=== PATIENT | female | born 1990 | race Caucasian/White ===

== ENCOUNTER → 2018-11-05 14:11 | Outpatient (CLI) | payer OTHER, SELFPAY ==
--- NOTE | 2018-11-05 14:15 | XR_ITS ---
PROCEDURE: XR ELBOW RT MIN 3V CLINICAL INDICATION: Rt elbow pain COMPARISON: No exams were available for comparison FINDINGS: No fracture or dislocation. No lytic or blastic change. There is normal mineralization. The joint spaces are well-preserved. No significant degenerative/arthritic changes. No erosive changes evident. Other findings:Along the dorsal aspect of the proximal olecranon on there is some increased density which could be related to patient's known soft tissue lesion. IMPRESSION: No acute bony or joint findings. Lobular soft tissue density along the posterior aspect of the elbow and may be related to soft tissue lesion. Dictated by: Jasiel Horner MD 11/05/2018 14:45 Electronically signed by Jasiel Horner MD in [place] 11/05/2018 14:45
== END ==
PROVIDERS: PCP Internal Medicine; Visit Provider Orthopaedic Surgery
DX: Z01.810 Encounter for preprocedural cardiovascular examination (principal); M25.521 Pain in right elbow
CPT/HCPCS: 73080

== ENCOUNTER 2019-08-08 17:49 | Emergency (ER) | payer OTHER, SELFPAY ==
[2019-08-08 18:15] VITALS: BP 155/102; PULSE 115; RESP 20; TEMP 37.3; O2SAT 98; BMI 52.3
--- NOTE | 2019-08-08 18:46 | HMH.EDUTC ---
[facility] [place] Clinical Impression: Mastitis of right breast unrelated to of Disposition: Home, Self-Care Condition on Discharge: Good Instructions: Mastitis, DI for Mastitis Additional Instructions: Apply warm wet compresses to the affected site three or four times per day for 15 minutes as tolerated. Take the antibiotics as directed. Follow up with your regular doctor. I put in a referral to surgery (Dr. Jones). If you have worsening symptoms or concerns, please follow up with him. GO TO THE ER FOR ANY WORSENING SYMPTOMS OR CONCERNS Prescriptions: Doxycycline Hyclate [Doxycycline 100mg Capsule] 100 mg PO Q12 10 Days #20 cap Transmission Status: Received by [id number] Referrals: Provider,MD Ritika [Primary Care Provider] - Luiz Jones MD [Staff Physician] - Forms: Work/School Release Time of Disposition: 18:55 Medical Decision Making - Medical Records Medical records reviewed: No: I reviewed the patient's medical records. - Herbert Inquiry Pt receiving controlled substance: No Vital Signs: 08/08/19 18:15 08/08/19 19:00 Temperature 99.2 F 99.2 F Temperature Source Oral Pulse Rate 115 H Pulse Rate [Left Brachial] 115 H Respiratory Rate 20 20 Blood Pressure 155/102 H Blood Pressure [Left Arm] 155/102 H Blood Pressure Mean [Left Arm] 119 Blood Pressure Source [Left Arm] Automatic Cuff Blood Pressure Position [Left Arm] Sitting 02 Sat by Pulse Oximetry 98 Oxygen Delivery Method Room Air [facility] [place] HPI - General Stated complaint: Right nipple itching, red stripe, knot to the side Time Seen by Provider: 08/08/19 18:46 Mode of Arrival: Ambulatory Source of Information: Patient Limitations: No Limitations Description of Symptoms (Recalled from Triage Doc. by RN): PATIENT C/O ITCHING, REDNESS, AND TENDERNESS TO HER RIGHT NIPPLE X 1 WEEK. SHE ALSO STATES THAT THERE IS A LUMP UNDER THE NIPPLE AND A RED LINE COMING FROM HER NIPPLE. DENIES FEVER, DISCHARGE HEENT Symptoms (Recalled from RN notes): No Resp Symptoms (Recalled from RN notes): No Skin Symptoms (Recalled from RN notes): Yes MS Symptoms (Recalled from RN notes): No Functional Status (Recalled from RN notes): WNL - History of Present Illness Provider Complaint: She reports that since yesterday she has a red painful area on her right breast that has also been very itchy. She denies any fever or chills. - Related Data Home Medications Medication Instructions Recorded Confirmed levonorgestrel-ethinyl estradiol 1 tab PO DAILY 07/23/18 11/26/18 0.1 mg-20 mcg tablet Previous Rx's Medication Instructions Recorded Doxycycline Hyclate [Doxycycline 100 mg PO Q12 10 Days #20 cap 08/08/19 100mg Capsule] Allergies Allergy/AdvReac Type Severity Reaction Status Date / Time ceftriaxone [From Rocephin] Allergy Verified 08/08/19 18:19 - Worker's Comp Is this a Worker's Comp case?: No [facility] History - Hepatitis A Screen Drug use history?: No High risk sexual behaviors?: No History of sexually transmitted infection?: No Currently employed?: No Childcare worker?: No Do you have indoor plumbing?: Yes Do you have electricity?: Yes Attestation statement:: This patient has been screened for Hepatitis A risk factors. I have reviewed the patient's past medical history: Yes Medical History: Denies:: Cancer, Diabetes Mellitus Type 1, Diabetes Mellitus Type 2, Internal Pacemaker, MRSA, Seizures Other Medical History: Denies: Blood Transfusion Reaction Other Surgeries: Yes: Other. No: Pacemaker Amputation: No Fractures: No Comment: [place] teeth removed, Cyst removal - Social History Smoking Status: Current every day smoker Tobacco Type: cigarettes # Packs/Day (cigarettes): 1 Alcohol Intake: never Substance Use Type: denies use Occupational Status: other Housing: house Household Members: family Family Hx:: Non-contributory, Cancer, Other Comment: Liver disea
[2019-08-08 19:00] VITALS: BP 155/102; PULSE 115; RESP 20; TEMP 37.3; O2SAT 98
== END 2019-08-08 19:04 | disposition home or self-care (01) ==
PROVIDERS: Emergency Provider Nurse Practitioner Family
DX: N61.0 Mastitis without abscess (principal)
CPT/HCPCS: 99201

== ENCOUNTER 2019-08-19 15:06 | Emergency (ER) | payer OTHER, SELFPAY ==
[2019-08-19 15:07] VITALS: BP 160/113; PULSE 94; RESP 20; TEMP 36.8; O2SAT 98; BMI 52.3
--- NOTE | 2019-08-19 15:30 | HMH.EDUTC ---
[facility] [place] Disposition Clinical Impression: Sinusitis Qualifiers: Sinusitis location: unspecified location Chronicity: unspecified Qualified Code(s): J32.9 - Chronic sinusitis, unspecified Disposition: Home, Self-Care Condition on Discharge: Good Instructions: Sinusitis, Sinus Headache, DI for Sinusitis, Preventing the Spread of Coronavirus Discharge Instructions Additional Instructions: *Monitor Temp, Over the counter Motrin or Tylenol as directed/as needed Tylenol every 4 hours and Motrin every 6 hours (as long as your family doctor has told you that you can take it) for fever or pain. and straight to ER if unable to lower temp less than 101.0 after medication given *Warm salt water gargles may help to soothe the throat *Throat Lozenges *Warm fluids like tea with honey may help to soothe the throat *Sleep elevated *Humidifier/Vaporizer No work or public outings until negative COVID19 test result back You was given handout on what to do Go home and self quarantine in a room away from everyone at home and do not be out in public until your COVID test is back and negative Return if needed Follow up with family doctor if needed Straight to ER if any life threatening symptoms You blood pressure was elevated in [facility] make sure to follow up with PCP for further evaluation Follow up IMMEDIATELY for new or worsening symptoms or no Noticeable improvement over the next 48-72 hours. 911 for difficulty breathing or swallowing Prescriptions: Azithromycin [Z-Pipe 250mg Tab] 250 mg PO DIRECTED #6 tab Transmission Status: Pending to [facility] Referrals: Provider,Referral, MD [Primary Care Provider] - As needed Forms: Work/School Release Time of Disposition: 16:17 Medical Decision Making - Herbert Inquiry Pt receiving controlled substance: No Herbert was queried for this patient: No Vital Signs: 08/19/19 15:07 Temperature 98.2 F Temperature Source Oral Pulse Rate [Radial] 94 H Respiratory Rate 20 Blood Pressure [Right Arm] 160/113 H Blood Pressure Mean [Right Arm] 128 Blood Pressure Source [Right Arm] Automatic Cuff Blood Pressure Position [Right Arm] Sitting 02 Sat by Pulse Oximetry 98 Oxygen Delivery Method Room Air - Lab Data Lab results reviewed: Yes: I reviewed the patient's lab results. Lab Results 08/19/19 15:35: [facility] Clinic Negative Orders (Tests/Meds): ED MEDICATIONS Discontinued Medications Generic Name Dose Route Start Last Admin Trade Name Bakari PRN Reason Stop Dose Admin Ketorolac Tromethamine 60 mg 08/19/19 15:47 08/19/19 15:47 Toradol 60mg/2ml Vial IM 08/19/19 15:48 60 mg ONCE ONE Administration ORDERS Category Date Time Status SARS-CoV-2, [facility] 08/19/19 15:[address] [facility] [place] HPI - General Stated complaint: need covid test to return to work Time Seen by Provider: 08/19/19 15:30 Mode of Arrival: Ambulatory Source of Information: Patient Limitations: No Limitations Description of Symptoms (Recalled from Triage Doc. by RN): Complaint of headache, fever, weakness, nausea, diarrhea. States her place of employment will not let her come back to work untill she is tested for COVID HEENT Symptoms (Recalled from RN notes): Yes Resp Symptoms (Recalled from RN notes): No Skin Symptoms (Recalled from RN notes): No MS Symptoms (Recalled from RN notes): No Functional Status (Recalled from RN notes): wnl - History of Present Illness Provider Complaint: Patient states that she hasnt felt well for the last couple of days States that she has been having sinus pain and pressure, headache, body aches and chills State that at work she had a low grade fever and diarrhea so they made her come and get checked for COVID19 - Related Data Home Medications Medication Instructions Recorded Confirmed levonorgestrel-ethinyl estradiol 1 tab PO DAILY 07/23/18 11/26/18 0.1 mg-20 mcg tablet Previous Rx's Medication Instructions Recorded Doxycycline Hycl
[2019-08-19 16:04] LABS: UTC Pregnancy Test, Urine Negative (Negative)
[2019-08-19 16:40] VITALS: BP 160/113; PULSE 94; RESP 20; TEMP 36.8; O2SAT 98
[2019-08-21 15:16] LABS: Covid-19 Nasal PCR Sendout Lex Not Detected
== END 2019-08-19 16:41 | disposition home or self-care (01) ==
PROVIDERS: Emergency Provider Nurse Practitioner
DX: J01.90 Acute sinusitis, unspecified (principal); F17.210 Nicotine dependence, cigarettes, uncomplicated; Z20.828 Contact with and (suspected) exposure to other viral communicable diseases
CPT/HCPCS: 81025; 96372; 99202; U0004

== ENCOUNTER 2019-10-28 17:30 | Emergency (ER) | payer OTHER, SELFPAY ==
[2019-10-28 18:06] VITALS: BP 138/82; PULSE 81; RESP 20; TEMP 36.9; O2SAT 96; BMI 54.1
--- NOTE | 2019-10-28 18:20 | HMH.EDUTC ---
[facility] [place] Disposition Clinical Impression: Sinusitis Qualifiers: Sinusitis location: unspecified location Chronicity: unspecified Qualified Code(s): J32.9 - Chronic sinusitis, unspecified Disposition: Home, Self-Care Condition on Discharge: Good Instructions: Sinusitis, Sinus Headache, DI for Sinusitis, DI for Cough -- Adult, Azithromycin Additional Instructions: *Monitor Temp, Over the counter Motrin or Tylenol as directed/as needed Tylenol every 4 hours and Motrin every 6 hours (as long as your family doctor has told you that you can take it) for fever or pain. and straight to ER if unable to lower temp less than 101.0 after medication given *Warm salt water gargles may help to soothe the throat *Throat Lozenges *Warm fluids like tea with honey may help to soothe the throat *Sleep elevated *Humidifier/Vaporizer *Flonase 2 sprays in each nostril daily but be aware that it may take 2-3 days before you notice improvement Your throat swab was sent for culture. Those results are typically sent to your primary care. Be sure to follow up in 2-3 days with your family doctor/primary care physician if no improvement so they can review those result and treat if necessary. If you don?t have a primary care doctor, I recommend you get one but in the mean time, you will have to return to a walk in clinic Follow up IMMEDIATELY for new or worsening symptoms or no Noticeable improvement over the next 48-72 hours. 911 for difficulty breathing or swallowing You was tested for COVID call back to the [facility] in the next 48-72 hours to see if your test results are back and what the result is You was given handout with instructions for Self isolation and Self Quarantine make sure to follow instructions carefully to help prevent the spread of COVID Prescriptions: Albuterol Sulfate [Proventil-HFA 90mcg/puff Inh] 1 - 2 puffs IH Q4HP PRN #1 inh PRN Reason: Shortness Of Breath [facility] Azithromycin [Z-Pipe 250mg Tab*] 250 mg PO UD DOSE PK #6 tab Transmission Status: [facility] Referrals: PCP,No [Primary Care Provider] - As needed Forms: Work/School Release Time of Disposition: 18:34 Medical Decision Making - Herbert Inquiry Pt receiving controlled substance: No Herbert was queried for this patient: No Vital Signs: 10/28/19 18:06 Temperature 98.5 F Temperature Source Oral Pulse Rate [Right Brachial] 81 Respiratory Rate 20 Blood Pressure [Right Arm] 138/82 Blood Pressure Mean [Right Arm] 100 Blood Pressure Source [Right Arm] Automatic Cuff Blood Pressure Position [Right Arm] Sitting 02 Sat by Pulse Oximetry 96 Oxygen Delivery Method Room Air - Lab Data Lab results reviewed: Yes: I reviewed the patient's lab results. Orders (Tests/Meds): ORDERS Category Date Time Status Covid-19 Nasal PCR Sendout [facility] 10/28/19 18:23 Ordered [facility] [place] HPI - General Stated complaint: sore throat,cough.SOB,weakness Time Seen by Provider: 10/28/19 18:20 Mode of Arrival: Ambulatory Source of Information: Patient Limitations: No Limitations Description of Symptoms (Recalled from Triage Doc. by RN): PATIENT C/O SOA, SORE THROAT, BODY ACHES, AND WEAKNESS SINCE LAST WEEK; STATES IT IS GETTING WORSE HEENT Symptoms (Recalled from RN notes): Yes Resp Symptoms (Recalled from RN notes): Yes Skin Symptoms (Recalled from RN notes): No MS Symptoms (Recalled from RN notes): No Functional Status (Recalled from RN notes): WNL - History of Present Illness Provider Complaint: Patient states that she hasnt felt well for about a week States that she has been having sinus pain and pressure, cough, sore throat, body aches, chills fever and over all not feeling well states that when she lays down she had drainage and makes her feel short of breath States that this evening was still feeling bad so she came in - Related Data Previous Rx's Medication Instructions Recorded Albuterol Sulfate [Pro
[2019-10-28 18:53] VITALS: BP 138/82; PULSE 81; RESP 20; TEMP 36.9; O2SAT 96
[2019-10-28 20:08] LABS: UTC Strep Screen (Rapid) Negative (Negative)
[2019-10-28 20:09] LABS: UTC Influenza A Antigen Negative (Negative); UTC Influenza B Antigen Negative (Negative)
[2019-10-31 08:57] LABS: Covid-19 Nasal PCR Sendout Lex NOT DETECTED
== END 2019-10-28 18:55 | disposition home or self-care (01) ==
PROVIDERS: Emergency Provider Nurse Practitioner
DX: J32.9 Chronic sinusitis, unspecified (principal); Z03.818 Encounter for observation for suspected exposure to other biological agents ruled out; F17.210 Nicotine dependence, cigarettes, uncomplicated
CPT/HCPCS: 87804; 87880; 99202; U0004

== ENCOUNTER 2019-12-26 09:10 | Emergency (ER) | payer OTHER, SELFPAY ==
--- NOTE | 2019-12-26 09:21 | HMH.EDGENADL ---
ED Disposition Clinical Impression: Abdominal pain Qualifiers: Abdominal location: unspecified location Qualified Code(s): R10.9 - Unspecified abdominal pain Leukocytosis Qualifiers: Leukocytosis type: unspecified Qualified Code(s): D72.829 - Elevated white blood cell count, unspecified Disposition: Home, Self-Care Condition on Discharge: Good Instructions: DI for Leukocytosis, DI for Abdominal Pain-Adult Additional Instructions: Follow-up with your primary care provider in 2 to 3 days for reevaluation. Referrals: PCP,No [Primary Care Provider] - - Critical Care Critical Care Time: No Attestation: On , the high probability of a clinically significant, sudden or life threatening deterioration of the following system(s) required my full and direct attention, intervention and personal management. The time I documented below is in addition to time spent performing reported procedures but includes the following listed in this critical care notation. Medical Decision Making - Medical Records Medical records reviewed: Yes: I reviewed the patient's medical records. - Herbert Inquiry Pt receiving controlled substance: No Vital Signs: 12/26/19 09:23 Temperature 99.4 F Temperature Source Oral Pulse Rate [Radial] 112 H Respiratory Rate 18 Blood Pressure [Right Arm] 139/92 H Blood Pressure Mean [Right Arm] 107 Blood Pressure Position [Right Arm] Sitting 02 Sat by Pulse Oximetry 98 Oxygen Delivery Method Room Air - Lab Data Lab results reviewed: Yes: I reviewed the patient's lab results. Lab Results 12/26/19 09:26: Urine Color Yellow, Urine Appearance Clear, Urine pH 6.0, Ur Specific Marshall >= 1.030, Urine Protein Negative, Urine Glucose (UA) Negative, Urine Ketones Negative, Urine Blood 2+, Urine Nitrate Negative, Urine Bilirubin Negative, Urine Urobilinogen 0.2, Ur Leukocyte Esterase Negative, Urine RBC 5-10, Urine WBC 3-5, Ur Squamous Epith Cells 3-5 12/26/19 09:26: Urine HCG, Qual Negative 12/26/19 10:00: WBC 13.8 H, RBC 5.03, Hgb 13.4, Hct 41.2, MCV 81.9, MCH 26.7 L, MCHC 32.6, RDW 16.3, Plt Count 383, MPV 7.6, Neut % (Auto) 75.7, Lymph % (Auto) 17.8, Holmes % (Auto) 4.7, Eos % (Auto) 1.4, Baso % (Auto) 0.4, Neut # (Auto) 10.5 H, Lymph # (Auto) 2.5, Holmes # (Auto) 0.7, Eos # (Auto) 0.2, Baso # (Auto) 0.1 12/26/19 10:00: Sodium 139, Potassium 4.6, Chloride 105, Carbon Dioxide 26, Anion Gap 12.6, BUN 18 H, Creatinine 0.80, Estimated Creat Clear 84, Estimated GFR 86, Est GFR ( Amer) 104, Glucose 91, Calcium 9.6 Result diagrams: 12/26/19 10:00 12/26/19 10:00 Orders (Tests/Meds): ED MEDICATIONS Discontinued Medications Generic Name Dose Route Start Last Admin Trade Name Freq PRN Reason Stop Dose Admin Ketorolac Tromethamine 30 mg 12/26/19 09:55 12/26/19 10:05 Ketorolac 30mg/Ml Vial IV 12/26/19 09:56 30 mg ONCE ONE Administration Medical Decision Narrative: Patient here with slightly elevated leukocytosis, but she states that this is normal for her. Urine does not appear infected. CT scan shows no signs of obstructive uropathy, appendicitis, bowel obstruction, diverticulitis. No acute metabolic derangement. Patient is morbidly obese, consideration could be for muscle strain. Encouraged ibuprofen/Tylenol, rest and follow-up with primary care provider in 2 to 3 days for reevaluation. General Adult HPI - General Stated complaint: both side pain Time Seen by Provider: 12/26/19 09:21 Mode of Arrival: Ambulatory Source of Information: Patient Limitations: No Limitations - History of Present Illness HPI narrative: This is a 29-year-old female with no significant past medical history who presents to the emergency department for evaluation of bilateral side pain just over her pelvic brim and increased urinary frequency that started yesterday. She had chills yesterday and a low-grade fever. She took Advil yesterday, no medications today. She has not had any vomiting. No mauro
[2019-12-26 09:23] VITALS: BP 139/92; PULSE 112; RESP 18; TEMP 37.4; O2SAT 98; BMI 54.8
[2019-12-26 09:31] LABS: Microscopic, Urine URINE MICROSCOPIC (MICROSCOPIC)
[2019-12-26 09:32] LABS: Appearance,Urine CLEAR (Clear); Bilirubin,Urine Negative (Negative); Blood, Urine 2+ (Negative); Color,Urine YELLOW (Yellow); Glucose,Urine (UA) Negative (Negative); Ketones,Urine Negative (Negative); Leukocyte Esterase,Urine Negative (Negative); Nitrate,Urine Negative (Negative); Protein,Urine Negative (Negative); Specific Gravity, Urine >= 1.030 (1.005-1.030); Urobilinogen,Urine 0.2 EU/dl (0.2)
[2019-12-26 09:35] LABS: Urine Pregnancy, HCG Qual. Negative (Negative)
--- NOTE | 2019-12-26 09:44 | CT_ITS ---
PROCEDURE: CT ABDOMEN PELVIS WO CON CLINICAL INDICATION: pyelo vs stone?, pain both sides Bilateral flank pain COMPARISON: No exams were available for comparison TECHNIQUE: Axial images obtained with sagittal and coronal reformats. All CT scans at the facility use one or more dose reduction, viz: automated exposure control, ma/kV adjustment per patient size (including targeted exams where dose is matched to indication, i.e. head), or iterative reconstruction technique. FINDINGS: LOWER THORAX: There are mild atelectatic changes in the right middle lobe medially ABDOMEN & PELVIS: The liver, spleen, adrenal glands, pancreas, and kidneys have an unremarkable appearance. No renal or ureteral calculi. No hydronephrosis. There are few small periaortic lymph nodes. Unremarkable appendix. No pelvic mass or abnormal fluid collection. There is a cyst tiny umbilical hernia containing fat. Degenerative disc disease is present in the lower thoracic spine. Scattered small nodes are present in the mesenteries which are nonspecific. There is edema within the subcutaneous soft tissues in the lumbar region IMPRESSION: 1. No acute abdominal or pelvic findings. 2. Scattered small mesenteric lymph nodes. These are nonspecific but could be seen with mesenteric adenitis. Dictated by: Jasiel Horner MD 12/26/2019 10:20 Jasiel Horner MD in [place] 12/26/2019 10:20
[2019-12-26 10:25] LABS: Basophils # 0.1 K/mm3 (0-0.2); Basophils % 0.4 % (0.1-2.0); Eosinophils # 0.2 K/mm3 (0.0-0.4); Eosinophils % 1.4 % (0.1-12.0); Hematocrit 41.2 % (37.0-47.0); Hemoglobin 13.4 g/dL (12.2-16.2); Lymphocytes # 2.5 K/mm3 (0.7-4.5); Lymphocytes % 17.8 % (10-50); Mean Corpuscular HGB Conc 32.6 g/dL (31.8-35.4); Mean Corpuscular Hemoglobin 26.7 pg (27.0-31.2); Mean Corpuscular Volume 81.9 fl (81-99); Mean Platelet Volume 7.6 fl (7.4-10.4); Monocytes # 0.7 K/mm3 (0.1-1.0); Monocytes % 4.7 % (1.7-9.3); Neutrophils # 10.5 K/mm3 (1.8-7.8); Neutrophils % 75.7 % (37.0-80.0); Platelet Count 383 K/mm3 (142-424); Red Blood Count 5.03 M/mm3 (4.20-5.40); Red Cell Distribution Width 16.3 % (11.5-17.5); White Blood Count 13.8 K/mm3 (4.8-10.8)
[2019-12-26 10:31] LABS: Chloride 105 mmol/L (98-107); Potassium 4.6 mmoL/L (3.5-5.1); Sodium 139 mmol/L (136-145)
[2019-12-26 10:34] LABS: Anion Gap 12.6 mEq/L (5-15); Blood Urea Nitrogen 18 mg/dl (7-17); Carbon Dioxide 26 mmol/L (22.0-30.0); Creatinine Clearance Estimated 84 mL/min (50-200); Estimated Glomerular Filt Rate 86 ml/min (>60); GFR (African American) 104 ML/MIN (>60)
[2019-12-26 10:35] LABS: Calcium 9.6 mg/dl (8.4-10.2); Glucose 91 mg/dl (74-100)
[2019-12-26 11:07] VITALS: BP 130/72; PULSE 100; RESP 16; TEMP 37.2; O2SAT 98
== END 2019-12-26 11:09 | disposition home or self-care (01) ==
PROVIDERS: Emergency Provider Emergency Medicine
DX: R10.30 Lower abdominal pain, unspecified (principal); D72.829 Elevated white blood cell count, unspecified; F17.210 Nicotine dependence, cigarettes, uncomplicated
CPT/HCPCS: 74176; 80048; 81001; 81025; 85025; 96374; 99283

== ENCOUNTER → 2020-01-30 15:40 | Outpatient (CLI) | payer OTHER, SELFPAY ==
[2020-02-01 17:50] LABS: Covid-19 Nasal PCR Sendout Lex Not Detected
== END ==
PROVIDERS: Visit Provider Nurse Practitioner Family
DX: Z03.818 Encounter for observation for suspected exposure to other biological agents ruled out (principal)
CPT/HCPCS: U0004

== ENCOUNTER 2020-02-11 11:37 | Emergency (ER) | payer OTHER, SELFPAY ==
[2020-02-11 11:47] VITALS: BP 143/114; PULSE 150; RESP 22; TEMP 39; O2SAT 98; BMI 53.9
--- NOTE | 2020-02-11 11:49 | PC.NURSE ---
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
[2020-02-11 11:57] VITALS: BP 143/114; PULSE 150; RESP 22; TEMP 39; O2SAT 98; BMI 54.3
--- NOTE | 2020-02-11 12:10 | HMH.EDUTC ---
[facility] [place] Clinical Impression: Viral syndrome, Bronchitis Disposition: Home, Self-Care Condition on Discharge: Good Instructions: Preventing the Spread of Coronavirus Discharge Instructions Additional Instructions: Drink plenty of fluids. Take tylenol for pain or fever. Return if you begin to have difficulty breathing. Follow up with your regular doctor. GO TO THE ER FOR ANY WORSENING SYMPTOMS Prescriptions: Ondansetron [Zofran 4mg ODT] 4 mg PO Q8HP PRN #12 tab.rapdis PRN Reason: Nausea [facility] Benzonatate [Tessalon Perle 100mg Cap] 100 mg PO TIDP PRN #30 cap PRN Reason: Cough Transmission Status: Received by [facility] Azithromycin [Z-Pipe 250mg Tab*] 250 mg PO UD DOSE PK #6 tab Transmission Status: [facility] Referrals: PCP,No [Primary Care Provider] - Forms: Work/School Release Time of Disposition: 13:18 Medical Decision Making - Medical Records Medical records reviewed: No: I reviewed the patient's medical records. - Herbert Inquiry Pt receiving controlled substance: No Vital Signs: 02/11/20 11:47 02/11/20 11:57 02/11/20 13:24 Temperature 102.2 F H 102.2 F H 98.7 F Temperature Source Oral Oral Oral Pulse Rate 120 H Pulse Rate [Left Radial] 150 H 150 H Respiratory Rate 22 22 20 Blood Pressure 140/90 Blood Pressure [Left Arm] 143/114 H 143/114 H Blood Pressure Mean [Left Arm] 123 123 Blood Pressure Source Automatic Cuff Blood Pressure Source [Left Arm] Automatic Cuff Automatic Cuff Blood Pressure Position Sitting Blood Pressure Position [Left Arm] Sitting Sitting 02 Sat by Pulse Oximetry 98 98 Oxygen Delivery Method Room Air Room Air Room Air - Lab Data Lab results reviewed: Yes: I reviewed the patient's lab results. Lab Results 02/11/20 12:41: Influenza Type A Ag Negative, Influenza Type B Ag Negative 02/11/20 12:41: Strep Scn Rapid Clinic Negative Orders (Tests/Meds): ED MEDICATIONS Discontinued Medications Generic Name Dose Route Start Last Admin Trade Name Freq PRN Reason Stop Dose Admin Acetaminophen 650 mg 02/11/20 12:01 02/11/20 12:03 Acetaminophen 325mg Tab PO 02/11/20 12:02 650 mg ONCE ONE Administration Ibuprofen 800 mg 02/11/20 12:01 02/11/20 12:04 Ibuprofen 400 Mg Tablet PO 02/11/20 12:02 800 mg ONCE ONE Administration ORDERS Category Date Time Status Covid-19 Nasal PCR Sendout [facility] 02/11/20 11:50 Received Strep Screen Confirmation Stat Micro 02/11/20 12:41 Received [facility] [place] HPI - General Stated complaint: sore throat,SOA.headache Time Seen by Provider: 02/11/20 12:14 Mode of Arrival: Ambulatory Source of Information: Patient Limitations: No Limitations Description of Symptoms (Recalled from Triage Doc. by RN): Pt c/o body aches, chills, sore throat and fever. Pt reports she feels like she can't catch her breath because of the chills . NO distress noted. HEENT Symptoms (Recalled from RN notes): Yes Resp Symptoms (Recalled from RN notes): Yes Skin Symptoms (Recalled from RN notes): No MS Symptoms (Recalled from RN notes): Yes Functional Status (Recalled from RN notes): wnl - History of Present Illness Provider Complaint: She reports that she started having a sore throat last night. She woke up with a cough and chest tightness this morning. Her fever was 103.0 before she came here. - Related Data Previous Rx's Medication Instructions Recorded Azithromycin [Z-Pipe 250mg Tab*] 250 mg PO UD DOSE PK #6 tab 02/11/20 Benzonatate [Tessalon Perle 100mg 100 mg PO TIDP PRN #30 cap 02/11/20 Cap] Ondansetron [Zofran 4mg ODT] 4 mg PO Q8HP PRN #12 tab.rapdis 02/11/20 Allergies Allergy/AdvReac Type Severity Reaction Status Date / Time ceftriaxone [From Rocephin] Allergy Verified 08/08/19 18:19 - Worker's Comp Is this a Worker's Comp case?: No [facility] History - Hepatitis A Screen D
--- NOTE | 2020-02-11 12:14 | XR_ITS ---
PROCEDURE: XR CHEST PORTABLE CLINICAL HISTORY: shortness of breath COMPARISON: CR CXR2V XR chest 2V from 07/06/2018 FINDINGS: The cardiomediastinal silhouette and pulmonary vascularity are within normal limits. The lungs are clear without infiltrates, suspicious nodules, or pleural effusions. No acute bony abnormalities. IMPRESSION: No acute findings. Dictated by: Jasiel Horner MD 02/11/2020 12:44 Jasiel Horner MD in [place] 02/11/2020 12:44
[2020-02-11 12:42] LABS: UTC Influenza A Antigen Negative (Negative); UTC Influenza B Antigen Negative (Negative); UTC Strep Screen (Rapid) Negative (Negative)
[2020-02-11 13:24] VITALS: BP 140/90; PULSE 120; RESP 20; TEMP 37.1; O2SAT 98
[2020-02-13 06:25] LABS: Covid-19 Nasal PCR Sendout Lex NOT DETECTED
== END 2020-02-11 13:25 | disposition home or self-care (01) ==
PROVIDERS: Emergency Provider Nurse Practitioner Family
DX: Z20.828 Contact with and (suspected) exposure to other viral communicable diseases (principal); B34.9 Viral infection, unspecified; J20.9 Acute bronchitis, unspecified
CPT/HCPCS: 71045; 87804; 87880; 99202; U0004

== ENCOUNTER 2020-02-12 14:14 | Emergency (ER) | payer OTHER, SELFPAY ==
[2020-02-12 14:20] VITALS: BP 150/97; PULSE 121; RESP 20; TEMP 37; O2SAT 95; BMI 53.9
[2020-02-12 14:38] LABS: UTC Strep Screen (Rapid) Positive (Negative)
--- NOTE | 2020-02-12 14:41 | HMH.EDUTC ---
[facility] [place] Clinical Impression: Strep throat Disposition: Home, Self-Care Condition on Discharge: Good Instructions: Strep Throat, DI for Strep Throat Additional Instructions: Continue taking Azithromycin as prescribed *Monitor Temp, Over the counter Motrin or Tylenol as directed/as needed Tylenol every 4 hours and Motrin every 6 hours (as long as your family doctor has told you that you can take it) for fever or pain. and straight to ER if unable to lower temp less than 101.0 after medication given *Warm salt water gargles may help to soothe the throat *Throat Lozenges *Warm fluids like tea with honey may help to soothe the throat *Sleep elevated *Humidifier/Vaporizer Make sure to call back to the [facility] tomorrow to see if your COVID test results are back and the result Make sure that you are drinking plenty of fluids to keep yourself hydrated Follow up IMMEDIATELY for new or worsening symptoms or no Noticeable improvement over the next 48-72 hours. 911 for difficulty breathing or swallowing Referrals: PCP,No [Primary Care Provider] - As needed Forms: Work/School Release Time of Disposition: 15:33 Medical Decision Making - Herbert Inquiry Pt receiving controlled substance: No Herbert was queried for this patient: No Vital Signs: 02/12/20 14:20 02/12/20 15:05 Temperature 98.6 F Temperature Source Oral Pulse Rate [Right Brachial] 121 H 100 H Respiratory Rate 20 Blood Pressure [Right Arm] 150/97 H Blood Pressure Mean [Right Arm] 114 Blood Pressure Source [Right Arm] Automatic Cuff Blood Pressure Position [Right Arm] Sitting 02 Sat by Pulse Oximetry 95 Oxygen Delivery Method Room Air - Lab Data Lab Results 02/12/20 14:25: Strep [facility] Positive A 02/12/20 14:41: Tst Clinic Negative Orders (Tests/Meds): ED MEDICATIONS Discontinued Medications Generic Name Dose Route Start Last Admin Trade Name Freq PRN Reason Stop Dose Admin Methylprednisolone Sodium Succinate 125 mg 02/12/20 15:04 02/12/20 15:10 Methylprednisolone Sod Succ 125mg Vial IM 02/12/20 15:05 125 mg ONCE ONE Administration [facility] [place] - General Stated complaint: Sore throat, ear pain Time Seen by Provider: 02/12/20 14:41 Mode of Arrival: Ambulatory Source of Information: Patient Limitations: No Limitations Description of Symptoms (Recalled from Triage Doc. by RN): PATIENT C/O SORE THROAT, FEVER, AND EAR PAIN X 2 DAYS. SHE WAS SEEN IN [facility] YESTERDAY AND GIVEN A Z-PACK, BUT STATES FEELS A LOT WORSE TODAY HEENT Symptoms (Recalled from RN notes): Yes Resp Symptoms (Recalled from RN notes): No Skin Symptoms (Recalled from RN notes): No MS Symptoms (Recalled from RN notes): No Functional Status (Recalled from RN notes): WNL - History of Present Illness Provider Complaint: Patient states that she has been having sore throat, bilateral ear pain and fever for several days States that she was seen in [facility] yesterday and started on Zpack but today her throat feels more swollen and her ears are hurting so she came in to get checked again to see if there is anything else she can take states that she was tested for COVID yesterday also but not heard her results yet - Related Data Previous Rx's Medication Instructions Recorded Azithromycin [Z-Pipe 250mg Tab*] 250 mg PO UD DOSE PK #6 tab 02/11/20 Benzonatate [Tessalon Perle 100mg 100 mg PO TIDP PRN #30 cap 02/11/20 Cap] Ondansetron [Zofran 4mg ODT] 4 mg PO Q8HP PRN #12 tab.rapdis 02/11/20 Allergies Allergy/AdvReac Type Severity Reaction Status Date / Time ceftriaxone [From Rocephin] Allergy Verified 08/08/19 18:19 - Worker's Comp Is this a Worker's Comp case?: No [facility] History - Hepatitis A Screen Drug use history?: No High risk sexual behaviors?: No History of sexually transmitted infection?: No Currently employed?: No Childcare worker?: No Do you have indoor plumbing?: Yes Do you have electricity?: Yes Attestation s
[2020-02-12 14:56] LABS: UTC Pregnancy Test, Urine Negative (Negative)
[2020-02-12 15:05] VITALS: PULSE 100
[2020-02-12 15:41] VITALS: BP 150/97; PULSE 100; RESP 20; TEMP 37; O2SAT 95
== END 2020-02-12 15:42 | disposition home or self-care (01) ==
PROVIDERS: Emergency Provider Nurse Practitioner
DX: J02.0 Streptococcal pharyngitis (principal); F17.210 Nicotine dependence, cigarettes, uncomplicated
CPT/HCPCS: 81025; 87880; 96372; 99202

== ENCOUNTER 2020-10-13 14:28 | Emergency (ER) | payer SELFPAY ==
[2020-10-13 15:26] VITALS: BP 146/96; PULSE 112; RESP 21; TEMP 37.1; O2SAT 99; BMI 56.3
--- NOTE | 2020-10-13 15:54 | HMH.EDUTC ---
[facility] [place]ression: Sinusitis Qualifiers: Sinusitis location: unspecified location Chronicity: unspecified Qualified Code(s): J32.9 - Chronic sinusitis, unspecified Disposition: Home, Self-Care Condition on Discharge: Good Instructions: Sinusitis, DI for Sinusitis, DI for COVID-19 (Suspected or Confirmed ), Coronavirus Disease 2019, Preventing the Spread of Coronavirus Discharge Instructions Additional Instructions: *Monitor Temp, Over the counter Motrin or Tylenol as directed/as needed Tylenol every 4 hours and Motrin every 6 hours (as long as your family doctor has told you that you can take it) for fever or pain. and straight to ER if unable to lower temp less than 101.0 after medication given *Warm salt water gargles may help to soothe the throat *Throat Lozenges *Warm fluids like tea with honey may help to soothe the throat *Sleep elevated *Humidifier/Vaporizer *Take your Medication as prescribed Follow up IMMEDIATELY for new or worsening symptoms or no Noticeable improvement over the next 48-72 hours. 911 for difficulty breathing or swallowing You were tested for today for COVID19 your test result should be back in the next 24-48 hours, you may call to the [facility] to see if your test results are back in the next 48 hours [phone] [facility] hours are 9am-9pm You was given a handout with instructions for Self Quarantine and Self isolation for while you wait on test results and what to do if they are positive If you are positive the Health Dept will be contacting you also Make sure to take your Vitamins Vit. C Vit D and Zinc if you can take them Prescriptions: guaiFENesin [Mucinex 600mg tablet] 1 - 2 tab PO Q12HP PRN #20 tab.er.12h PRN Reason: Congestion Transmission Status: Received by [facility] Dicyclomine HCl [Bentyl 10mg capsule] 10 mg PO TID PRN #15 cap PRN Reason: Cramping Transmission Status: Received by [facility] Azithromycin [Z-Pipe 250mg Tab] 250 mg PO DIRECTED #6 tab Transmission Status: Received by [facility] Referrals: Provider,Referral, MD [Primary Care Provider] - As needed Time of Disposition: 16:05 Medical Decision Making - Herbert Inquiry Pt receiving controlled substance: No Herbert was queried for this patient: No Vital Signs: 10/13/20 15:26 10/13/20 16:08 Temperature 98.7 F 98.7 F Temperature Source Oral Pulse Rate 112 H Pulse Rate [Right Radial] 112 H Respiratory Rate Blood Pressure 146/96 H Blood Pressure [Right Arm] 146/96 H Blood Pressure Mean [Right Arm] 112 Blood Pressure Position [Right Arm] Sitting 02 Sat by Pulse Oximetry 99 Oxygen Delivery Method Room Air [facility] [place] General Stated complaint: s throat, weakness, cough, vom, sob, diarr, abdom Time Seen by Provider: 10/13/20 15:45 Mode of Arrival: Ambulatory Source of Information: Patient Limitations: No Limitations Description of Symptoms (Recalled from Triage Doc. by RN): PT REPORTS SHE IS WANTING COVID SYMPTOMS RELIEF. PT REPORTS SHE TESTED POSITIVE FOR COVID ON 10/08/20. PT REPORT COUGH, WEAKNESS, V/D, SOA AND SORE THROAT HEENT Symptoms (Recalled from RN notes): Yes (PT REPORTS SORE THROAT) Resp Symptoms (Recalled from RN notes): Yes (PT REPORTS SOA) Skin Symptoms (Recalled from RN notes): No MS Symptoms (Recalled from RN notes): No Functional Status (Recalled from RN notes): PT REPORTS WEAKESS - History of Present Illness Provider Complaint: Patient state that she was dx with COVID several days ago State that she has been having sinus pain and pressure State that her drainage from her nose has went from clear to yellowish green and she was worried that she may have a sinus infection too. State that she has been having diarrhea and cramping along with body aches State that she has been taking mucinex that she was prescribed before for congestion and that has been helping keep her chest from getting congested but she ran out and wanted to see if she
[2020-10-13 16:08] VITALS: BP 146/96; PULSE 112; RESP 21; TEMP 37.1; O2SAT 99
== END 2020-10-13 16:12 | disposition home or self-care (01) ==
PROVIDERS: Emergency Provider Nurse Practitioner
DX: U07.1 COVID-19 (principal); J32.9 Chronic sinusitis, unspecified; F17.210 Nicotine dependence, cigarettes, uncomplicated
CPT/HCPCS: 99202; G0463

== ENCOUNTER 2021-08-26 00:47 | Emergency (ER) | payer OTHER, SELFPAY ==
[2021-08-26 00:49] VITALS: BP 167/105; PULSE 102; RESP 16; TEMP 36.8; O2SAT 99; BMI 55.0
[2021-08-26 01:18] VITALS: BP 159/97; PULSE 103; O2SAT 97
--- NOTE | 2021-08-26 01:20 | CT_ITS ---
PROCEDURE INFORMATION: Exam: CT Head Without Contrast Exam date and time: 08/26/2021 1:39 AM Age: 30 years old Clinical indication: Pain; Headache; Migraine; Aura effect not specified; Additional info: New onset migraine, possible mastoiditis, right side TECHNIQUE: Imaging protocol: Computed tomography of the head without contrast. Radiation optimization: All CT scans at this facility use at least one of these dose optimization techniques: automated exposure control; mA and/or kV adjustment per patient size (includes targeted exams where dose is matched to clinical indication); or iterative reconstruction. COMPARISON: No relevant prior studies available. FINDINGS: Brain: Normal. No hemorrhage. Unremarkable white matter. No mass effect. Cerebral ventricles: No ventriculomegaly. Pituitary gland and sella: Expanded empty sella noted. Paranasal sinuses: Visualized sinuses are unremarkable. No fluid levels. Mastoid air cells: Clear mastoid air cells and middle ear cavities bilaterally. Bones/joints: Unremarkable. No acute fracture. Soft tissues: Unremarkable. IMPRESSION: No evidence of acute intracranial hemorrhage, mass effect, or edema. Normal appearing mastoids and middle ear cavities bilaterally.
[2021-08-26 01:23] LABS: Basophils # 0.1 K/mm3 (0-0.2); Basophils % 0.5 % (0.1-2.0); Eosinophils # 0.2 K/mm3 (0.0-0.4); Eosinophils % 1.7 % (0.1-12.0); Hematocrit 42.8 % (37.0-47.0); Hemoglobin 14.4 g/dL (12.2-16.2); Lymphocytes # 4.3 K/mm3 (0.7-4.5); Lymphocytes % 29.6 % (10-50); Mean Corpuscular HGB Conc 33.6 g/dL (31.8-35.4); Mean Corpuscular Hemoglobin 28.5 pg (27.0-31.2); Mean Corpuscular Volume 84.8 fl (81-99); Mean Platelet Volume 7.8 fl (7.4-10.4); Monocytes # 0.4 K/mm3 (0.1-1.0); Monocytes % 2.9 % (1.7-9.3); Neutrophils # 9.4 K/mm3 (1.8-7.8); Neutrophils % 65.5 % (37.0-80.0); Platelet Count 361 K/mm3 (142-424); Red Blood Count 5.04 M/mm3 (4.20-5.40); Red Cell Distribution Width 14.1 % (11.5-17.5); White Blood Count 14.4 K/mm3 (4.8-10.8)
[2021-08-26 01:31] VITALS: BP 145/92; PULSE 98; O2SAT 98
[2021-08-26 01:38] LABS: HCG Qualitative, Serum Negative (Negative)
--- NOTE | 2021-08-26 01:42 | PC.NURSE ---
Pt gone to RAD
--- NOTE | 2021-08-26 01:47 | PC.NURSE ---
pt back from ct scan
[2021-08-26 02:31] VITALS: BP 136/85; PULSE 85; O2SAT 99
[2021-08-26 02:31] LABS: Coronavirus 19, PCR Not Detected (NotDetected); Influenza A, PCR Not Detected (NotDetected); Influenza B, PCR Not Detected (NotDetected)
[2021-08-26 02:42] LABS: Alanine Aminotransferase 30 U/L (12-78); Albumin Level 3.7 g/dl (3.5-5.0); Albumin/Globulin Ratio 1.4 (1.1-1.8); Alkaline Phosphatase 89 U/L (38-126); Anion Gap 8.3 mEq/L (5-15); Aspartate Amino Transferase 29 U/L (14-36); Blood Urea Nitrogen 15 mg/dl (7-17); Calcium 8.5 mg/dl (8.4-10.2); Carbon Dioxide 27 mmol/L (22.0-30.0); Chloride 107 mmol/L (98-107); Creatinine Clearance Estimated 95 mL/min (50-200); Estimated Glomerular Filt Rate 100 ml/min (>60); GFR (African American) 121 ML/MIN (>60); Globulin 2.7 g/dL (1.3-3.2); Glucose 90 mg/dl (74-100); Potassium 3.3 mmoL/L (3.5-5.1); Sodium 139 mmol/L (136-145); Total Protein,Serum 6.4 g/dl (6.3-8.2)
[2021-08-26 02:43] LABS: Lactic Acid 0.8 mmol/L (0.7-2.1)
[2021-08-26 02:44] LABS: Bilirubin,Total < 0.1 mg/dl (0.2-1.3)
[2021-08-26 02:48] LABS: C-Reactive Protein 13.2 mg/L (0-4)
[2021-08-26 02:48] LABS: Erythrocyte Sedimentation Rate 24 mm/hr (0-20)
--- NOTE | 2021-08-26 02:54 | HMH.EDHA ---
ED Disposition Clinical Impression: Mastoiditis Qualifiers: Laterality: right Qualified Code(s): H70.91 - Unspecified mastoiditis, right ear Disposition: Home, Self-Care Condition on Discharge: Good Instructions: DI for Mastoiditis-Adult Additional Instructions: use meds and see pcp for follow up at this time Prescriptions: clindamycin HCL [Clindamycin HCl] 300 mg PO TID #30 cap Transmission Status: Pending to [facility] Meloxicam 15 mg PO DAILY #10 tab Transmission Status: Pending to [facility] Referrals: Mega Reynolds MD [Primary Care Provider] - - Critical Care Critical Care Time: No Attestation: On 08/26/21, the high probability of a clinically significant, sudden or life threatening deterioration of the following system(s) required my full and direct attention, intervention and personal management. The time I documented below is in addition to time spent performing reported procedures but includes the following listed in this critical care notation. Medical Decision Making - Medical Records Medical records reviewed: Yes: I reviewed the patient's medical records. - Herbert Inquiry Pt receiving controlled substance: No Vital Signs: 08/26/21 00:49 08/26/21 01:18 08/26/21 01:31 Temperature 98.3 F Temperature Source Oral Pulse Rate 103 H 98 H Pulse Rate [Left Radial] 102 H Respiratory Rate 16 Blood Pressure 159/97 H 145/92 H Blood Pressure [Right Arm] 167/105 H Blood Pressure Mean 118 113 Blood Pressure Mean [Right Arm] 125 Blood Pressure Source [Right Arm] Automatic Cuff Blood Pressure Position [Right Arm] Sitting 02 Sat by Pulse Oximetry 99 97 98 Oxygen Delivery Method Room Air Room Air Room Air 08/26/21 02:31 Temperature Temperature Source Pulse Rate 85 Pulse Rate [Left Radial] Respiratory Rate Blood Pressure 136/85 Blood Pressure [Right Arm] Blood Pressure Mean Blood Pressure Mean [Right Arm] Blood Pressure Source [Right Arm] Blood Pressure Position [Right Arm] 02 Sat by Pulse Oximetry 99 Oxygen Delivery Method Room Air - Lab Data Lab results reviewed: Yes: I reviewed the patient's lab results. Lab Results 08/26/21 01:00: WBC 14.4 H, RBC 5.04, Hgb 14.4, Hct 42.8, MCV 84.8, MCH 28.5, MCHC 33.6, RDW 14.1, Plt Count 361, MPV 7.8, Neut % (Auto) 65.5, Lymph % (Auto) 29.6, Anson % (Auto) 2.9, Eos % (Auto) 1.7, Baso % (Auto) 0.5, Neut # (Auto) 9.4 H, Lymph # (Auto) 4.3, Anson # (Auto) 0.4, Eos # (Auto) 0.2, Baso # (Auto) 0.1, ESR 24 H 08/26/21 01:00: Serum HCG, Qual Negative 08/26/21 01:35: Sodium 139, Potassium 3.3 L, Chloride 107, Carbon Dioxide 27, Anion Gap 8.3, BUN 15, Creatinine 0.70, Estimated Creat Clear 95, Estimated GFR 100, Est GFR ( Amer) 121, Glucose 90, Calcium 8.5, Total Bilirubin < 0.1 L, AST 29, ALT 30, Alkaline Phosphatase 89, Total Protein 6.4, Albumin 3.7, Globulin 2.7, Albumin/Globulin Ratio 1.4 08/26/21 01:35: Lactate 0.8 Result diagrams: 08/26/21 01:00 08/26/21 01:35 Orders (Tests/Meds): ED MEDICATIONS Generic Name Dose Route Start Last Admin Trade Name Freq PRN Reason Stop Dose Admin Sodium Chloride 1,000 mls @ 999 mls/hr 08/26/21 01:15 08/26/21 01:15 Sod Chlor 0.9% 1000ml Bag IV 08/26/21 02:15 999 mls/hr .Q1H1M JUANA Administration Sodium Chloride 10 ml 08/26/21 01:11 Sodium Chloride 0.9% 10ml Flush Syringe IV 09/25/21 01:10 NEEDED PRN Maintain IV Site Discontinued Medications Generic Name Dose Route Start Last Admin Trade Name Freq PRN Reason Stop Dose Admin Ketorolac Tromethamine 30 mg 08/26/21 01:54 08/26/21 01:56 Ketorolac 30mg/Ml Vial IV 08/26/21 01:55 30 mg ONCE ONE Administration ORDERS Category Date Time Status C-Reactive Protein Stat Lab 08/26/21 01:35 Results Comprehensive Metabolic Panel Stat Lab 08/26/21 01:35 Results Procalcitonin Stat Lab 08/26/21 01:35 Results Rapid PCR Covid and Flu A/B Stat Lab 08/26/21 01
[2021-08-26 03:01] LABS: Procalcitonin 0.046 ng/mL (0.0-2.0)
[2021-08-26 03:49] VITALS: BP 136/85; PULSE 85; RESP 18; TEMP 36.8; O2SAT 99
== END 2021-08-26 03:51 | disposition home or self-care (01) ==
PROVIDERS: Emergency Provider Emergency Medicine; PCP Family Medicine
DX: H70.91 Unspecified mastoiditis, right ear (principal); Z88.1 Allergy status to other antibiotic agents
CPT/HCPCS: 70450; 80053; 83605; 84145; 84703; 85025; 85651; 86140; 87040; 96365; 96375; 99284; C9803; U0003; U0005

== ENCOUNTER 2021-10-28 23:08 | Emergency (ER) | payer OTHER, SELFPAY ==
[2021-10-28 23:09] VITALS: BP 104/70; PULSE 98; RESP 18; TEMP 36.9; O2SAT 100; BMI 54.8
[2021-10-28 23:17] VITALS: BP 109/70; PULSE 91; O2SAT 100
--- NOTE | 2021-10-28 23:30 | ECG_ITS ---
APPROVED REPORT Exam: Resting ECG HR:91 bpm ECG Measurements Heart Rate 91 AXES MD 184 P 61 QRSd 88 QRS 40 QT 347 T 59 QTc 396 Conclusion SINUS RHYTHM LOW QRS VOLTAGE IN PRECORDIAL LEADS [QRS DEFLECTION < 1.0 mV IN CHEST LEADS] BORDERLINE ECG INTERPRETATION BASED ON A DEFAULT AGE OF 40 YEARS UNCONFIRMED REPORT Electronically signed by : Mega Jaramillo MD 10/29/2021 17:08:11
[2021-10-28 23:52] LABS: Basophils # 0.1 K/mm3 (0-0.2); Basophils % 0.8 % (0.1-2.0); Eosinophils # 0.3 K/mm3 (0.0-0.4); Eosinophils % 2.3 % (0.1-12.0); Hematocrit 43.8 % (37.0-47.0); Hemoglobin 13.6 g/dL (12.2-16.2); Lymphocytes # 2.9 K/mm3 (0.7-4.5); Lymphocytes % 21.9 % (10-50); Mean Corpuscular Volume 90.2 fl (81-99); Mean Platelet Volume 7.8 fl (7.4-10.4); Monocytes # 0.5 K/mm3 (0.1-1.0); Monocytes % 3.3 % (1.7-9.3); Neutrophils # 9.6 K/mm3 (1.8-7.8); Neutrophils % 71.6 % (37.0-80.0); Platelet Count 347 K/mm3 (142-424); Red Blood Count 4.86 M/mm3 (4.20-5.40); White Blood Count 13.4 K/mm3 (4.8-10.8)
[2021-10-28 23:59] LABS: Alanine Aminotransferase 38 U/L (12-78); Albumin Level 4.2 g/dl (3.5-5.0); Albumin/Globulin Ratio 1.4 (1.1-1.8); Alkaline Phosphatase 106 U/L (38-126); Amylase 61 U/L (30-110); Anion Gap 8.9 mEq/L (5-15); Aspartate Amino Transferase 33 U/L (14-36); Blood Urea Nitrogen 11 mg/dl (7-17); Calcium 9.4 mg/dl (8.4-10.2); Carbon Dioxide 31 mmol/L (22.0-30.0); Chloride 104 mmol/L (98-107); Creatinine Clearance Estimated 83 mL/min (50-200); Estimated Glomerular Filt Rate 85 ml/min (>60); GFR (African American) 103 ML/MIN (>60); Globulin 3.1 g/dL (1.3-3.2); Glucose 103 mg/dl (74-100); Lipase 34 U/L (23-300); Potassium 3.9 mmoL/L (3.5-5.1); Sodium 140 mmol/L (136-145); Total Protein,Serum 7.3 g/dl (6.3-8.2)
[2021-10-29] LABS: Lactic Acid 1.5 mmol/L (0.7-2.1)
--- NOTE | 2021-10-29 | XR_ITS ---
PROCEDURE INFORMATION: Exam: XR Chest Exam date and time: 10/28/2021 11:52 PM Age: 30 years old Clinical indication: Sternal or substernal pain; Additional info: Chest pain TECHNIQUE: Imaging protocol: Radiologic exam of the chest. Views: 2 views. COMPARISON: CR XR CHEST PORTABLE 02/11/2020 12:41 PM FINDINGS: Lungs: No acute airspace consolidation. No appreciable pulmonary edema. Pleural spaces: No pleural effusion. No pneumothorax. Heart/Mediastinum: Cardiomediastinal silhouette is unchanged. Bones/joints: No acute osseous abnormality. IMPRESSION: No acute findings.
[2021-10-29 00:01] LABS: Bilirubin,Total < 0.1 mg/dl (0.2-1.3)
[2021-10-29 00:04] LABS: C-Reactive Protein 12.8 mg/L (0-4)
--- NOTE | 2021-10-29 00:04 | HMH.EDNVD ---
Discharge Plan Disposition Patient Disposition: Home, Self-Care Chief Complaint: Nausea/Vomiting/Diarrhea Prescriptions Prescriptions: No Action omeprazole 10 MG capsule,delayed release(DR/EC) 10 mg PO DAILY Referrals Follow up/Referrals: Mega Reynolds MD [Primary Care Provider] - See instructions Clinical Impressions Clinical Impression: Syncope, vasovagal Instructions Patient Instructions: DI for Nausea -- Adult Discharge ED Provider: Aaron Quiñonez Nausea/Vomiting/Diarrhea HPI General Chief complaint: Nausea/Vomiting/Diarrhea Stated complaint: vomiting, passed out, recent surgery 10/27/21 Time Seen by Provider: 10/29/21 00:04 Mode of Arrival: Wheelchair Source of Information: Patient, Significant Other and Medical Record Limitations: No Limitations Description of Symptoms (Recalled from ER Triage Doc. by RN): PT REPORTS THAT SHE WAS OUTSIDE, AND GOT SICK AND VOMITTED X 3 AND THEN FELL TO THE GROUND. PT REPORTS THAT SHE HAD A BIOPSY ON HER CERVIX YESTERDAY AND HAS NOT BEEN ABLE TO TO EAT OR DRINK WELL SINCE. History of Present Illness HPI Narrative: recent op surg and had episode of passing out stan MOLINA complaint: nausea Onset (ago): hour(s) Associated Abdominal Pain: No Context: recent surgery/procedure Associated symptoms: other (syncope ) Related Data Home Medications Medication Instructions Recorded Confirmed omeprazole 10 mg capsule,delayed 10 mg PO DAILY GERD 08/26/21 10/28/21 release Allergies Allergy/AdvReac Type Severity Reaction Status Date / Time ceftriaxone [From Rocephin] Allergy Verified 08/08/19 18:19 PFSH PFSH 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 current occupational exposures/hazards: No caffeine: Yes ROS Obtained: Yes All systems reviewed & no additional complaints except as documented Physical Exam General General appearance: alert and in no apparent distress Head Head exam: normocephalic Eye Eye exam: Present PERRL and EOMI ENT ENT exam: Present mucous membranes dry Neck Neck exam: Present trachea midline Respiratory Respiratory exam: Present normal lung sounds bilaterally Cardiovascular Cardiovascular exam: Present regular rate and systolic murmur Abdominal Exam Abdominal exam: Present soft Extremities Exam Extremities exam: Absent tenderness Neurological Exam Neurological exam: Present alert, oriented X3 and CN II-XII intact Psychiatric Psychiatric exam: Present normal affect Skin Skin exam: Absent rash Medical Decision Making Medical Records Medical records reviewed: Yes I reviewed the patient's medical records. Herbert Inquiry Pt receiving controlled substance: No Vital Signs: 10/28/21 23:09 10/28/21 23:17 10/29/21 00:36 Temperature 98.4 F Temperature Source Oral Pulse Rate 91 H 84 Pulse Rate [Left Radial] 98 H Respiratory Rate 18 17 Blood Pressure 109/70 L 89/58 L Blood Pressure [Right Arm] 104/70 L Blood Pressure Mean 84 68 Blood Pressure Mean [Right Arm] 81 Blood Pressure Source [Right Arm] Automatic Cuff Blood Pressure Position [Right Arm] Sitting 02 Sat by Pulse Oximetry 100 100 95 Oxygen Delivery Method Room Air 10/29/21 01:01 10/29/21 01:01 10/29/21 01:00 Temperature 98.2 F Temperature Source Pulse Rate 90 94 H Pulse Rate [Left Radial] Respiratory Rate 18 16 Blood Pressure 113/77 113/77 Blood Pressure [Right Arm] Blood Pressure Mean 89 Blood Pressure Mean [Right Arm] Blood Pressure Source [Right Arm] Blood Pressure Position [Right Arm] 02 Sat by Pulse Oximetry 95 Oxygen Delivery Method Room Air Room Air Lab Data Lab results r
[2021-10-29 00:14] LABS: Appearance,Urine CLEAR (Clear); Bilirubin,Urine Negative (Negative); Blood, Urine 2+ (Negative); Color,Urine YELLOW (Yellow); Glucose,Urine (UA) Negative (Negative); Ketones,Urine Negative (Negative); Leukocyte Esterase,Urine Negative (Negative); Microscopic, Urine URINE MICROSCOPIC (MICROSCOPIC); Nitrate,Urine Negative (Negative); Protein,Urine Negative (Negative); Urobilinogen,Urine 0.2 EU/dl (0.2)
[2021-10-29 00:16] LABS: Troponin I < 0.01 ng/ml (0.00-0.034)
[2021-10-29 00:16] LABS: Urine Pregnancy, HCG Qual. Negative (Negative)
[2021-10-29 00:18] LABS: Bacteria,Urine Trace /lpf; WBC,Urine Occasional #/hpf (0-3)
[2021-10-29 00:36] VITALS: BP 89/58; PULSE 84; RESP 17; O2SAT 95
[2021-10-29 00:38] LABS: Erythrocyte Sedimentation Rate 20 mm/hr (0-20)
[2021-10-29 01:00] VITALS: BP 113/77; PULSE 94; RESP 16; O2SAT 95
[2021-10-29 01:01] VITALS: BP 113/77; PULSE 90; RESP 18; TEMP 36.8; O2SAT 98
--- NOTE | 2021-10-29 01:02 | PC.NURSE ---
PT REPORTS THAT SHE FEELS BETTER THAN WHEN SHE CAME IN. NO AUCTE DISTRESS NOTED.
== END 2021-10-29 01:21 | disposition home or self-care (01) ==
PROVIDERS: Emergency Provider Emergency Medicine; PCP Family Medicine
DX: R55 Syncope and collapse (principal); Z72.0 Tobacco use
CPT/HCPCS: 71046; 80053; 81001; 81025; 82150; 83605; 83690; 84484; 85025; 85651; 86140; 93005; 96365; 96375; 99285; J2405

== ENCOUNTER 2021-12-29 19:59 | Emergency (ER) | payer OTHER, SELFPAY ==
[2021-12-29 20:02] VITALS: BP 153/106; PULSE 104; RESP 18; TEMP 36.9; O2SAT 99; BMI 58.6
[2021-12-29 20:20] VITALS: BP 153/106; PULSE 103; O2SAT 99
--- NOTE | 2021-12-29 20:27 | XR_ITS ---
PROCEDURE INFORMATION: Exam: XR Left Knee Exam date and time: 12/29/2021 9:03 PM Age: 31 years old Clinical indication: Pain; Knee; Left; Additional info: Fall TECHNIQUE: Imaging protocol: Radiologic exam of the Left knee. Views: 3 views. COMPARISON: CR XR FOOT LT MIN 3V 12/17/2018 5:08 PM FINDINGS: Bones/joints: Bowing of the proximal fibula which appears chronic. No acute fracture or dislocation. Soft tissues: Normal. IMPRESSION: No acute findings.
--- NOTE | 2021-12-29 20:27 | CT_ITS ---
PROCEDURE INFORMATION: Exam: CT Cervical Spine Without Contrast Exam date and time: 12/29/2021 8:59 PM Age: 31 years old Clinical indication: Injury or trauma; Fall TECHNIQUE: Imaging protocol: Computed tomography of the cervical spine without contrast. Radiation optimization: All CT scans at this facility use at least one of these dose optimization techniques: automated exposure control; mA and/or kV adjustment per patient size (includes targeted exams where dose is matched to clinical indication); or iterative reconstruction. COMPARISON: CT HEAD/BRAIN WO CON 08/26/2021 1:39 AM FINDINGS: Bones/joints: Straightening of the curvature of the cervical spine is likely positional. Lungs: Lung apices are normal. Soft tissues: Unremarkable. IMPRESSION: No acute fracture or malalignment of the cervical spine.
--- NOTE | 2021-12-29 20:27 | XR_ITS ---
PROCEDURE INFORMATION: Exam: XR Left Tibia and Fibula Exam date and time: 12/29/2021 9:05 PM Age: 31 years old Clinical indication: Pain; Lower leg; Left; Additional info: Fall TECHNIQUE: Imaging protocol: Radiologic exam of the Left tibia and fibula. Views: 2 views. COMPARISON: CR XR KNEE LT 3V 12/29/2021 9:03 PM FINDINGS: Bones/joints: Asymmetric appearance of the mortise which may be secondary to patient positioning. Enthesophyte at the Achilles tendon insertion. Calcaneal spur. Bowing of the upper fibula which appears chronic. Soft tissues: Normal. IMPRESSION: Asymmetric appearance of the mortise which may be secondary to patient positioning. If there is concern for ligamentous injury, MRI would be more sensitive.
--- NOTE | 2021-12-29 20:27 | CT_ITS ---
PROCEDURE INFORMATION: Exam: CT Head Without Contrast Exam date and time: 12/29/2021 8:59 PM Age: 31 years old Clinical indication: Injury or trauma; Fall TECHNIQUE: Imaging protocol: Computed tomography of the head without contrast. Radiation optimization: All CT scans at this facility use at least one of these dose optimization techniques: automated exposure control; mA and/or kV adjustment per patient size (includes targeted exams where dose is matched to clinical indication); or iterative reconstruction. COMPARISON: CT HEAD/BRAIN WO CON 08/26/2021 1:39 AM FINDINGS: Brain: Normal. No hemorrhage. Unremarkable white matter. No mass effect. Cerebral ventricles: No ventriculomegaly. Paranasal sinuses: Visualized sinuses are unremarkable. No fluid levels. Mastoid air cells: Visualized mastoid air cells are well aerated. Bones/joints: Unremarkable. No acute fracture. Soft tissues: Unremarkable. IMPRESSION: No acute intracranial abnormality.
--- NOTE | 2021-12-29 20:27 | ECG_ITS ---
APPROVED REPORT Exam: Resting ECG HR:100 bpm ECG Measurements Heart Rate 100 AXES FL 174 P 67 QRSd 75 QRS 56 QT 331 T 68 QTc 388 Conclusion SINUS TACHYCARDIA ABNORMAL RHYTHM ECG UNCONFIRMED REPORT Electronically signed by : Mega Jaramillo MD 12/31/2021 13:30:18
--- NOTE | 2021-12-29 20:28 | XR_ITS ---
PROCEDURE INFORMATION: Exam: XR Chest Exam date and time: 12/29/2021 9:00 PM Age: 31 years old Clinical indication: Injury or trauma; Fall; Blunt trauma (contusions or hematomas) TECHNIQUE: Imaging protocol: Radiologic exam of the chest. Views: 2 views. COMPARISON: CR XR CHEST 2V 10/28/2021 11:52 PM FINDINGS: Lungs: Subtle haziness adjacent to the right heart border. Pleural spaces: No pneumothorax. Heart/Mediastinum: No cardiomegaly. Bones/joints: No acute fracture. IMPRESSION: Subtle haziness adjacent to the right heart border which may be hypoventilatory however pneumonitis should be clinically excluded.
[2021-12-29 20:30] VITALS: BP 136/95; PULSE 100; O2SAT 95
--- NOTE | 2021-12-29 20:40 | PC.NURSE ---
Pt gone to RAD
--- NOTE | 2021-12-29 20:54 | PC.NURSE ---
Pt back from RAD
[2021-12-29 20:58] LABS: Urine Pregnancy, HCG Qual. Negative (Negative)
[2021-12-29 21:00] VITALS: BP 137/91; PULSE 102; O2SAT 94
[2021-12-29 21:36] LABS: Basophils # 0.2 K/mm3 (0-0.2); Eosinophils # 0.2 K/mm3 (0.0-0.4); Eosinophils % 1.5 % (0.1-12.0); Hemoglobin 14.4 g/dL (12.2-16.2); Lymphocytes # 3.4 K/mm3 (0.7-4.5); Lymphocytes % 20.9 % (10-50); Mean Corpuscular HGB Conc 32.7 g/dL (31.8-35.4); Mean Corpuscular Hemoglobin 29.4 pg (27.0-31.2); Mean Corpuscular Volume 90.1 fl (81-99); Mean Platelet Volume 7.9 fl (7.4-10.4); Monocytes # 0.5 K/mm3 (0.1-1.0); Monocytes % 3.3 % (1.7-9.3); Neutrophils # 11.9 K/mm3 (1.8-7.8); Neutrophils % 73.4 % (37.0-80.0); Platelet Count 381 K/mm3 (142-424); Red Blood Count 4.88 M/mm3 (4.20-5.40); White Blood Count 16.2 K/mm3 (4.8-10.8)
[2021-12-29 21:40] VITALS: BP 138/89; PULSE 86; O2SAT 96
[2021-12-29 21:41] LABS: MANUAL DIFFERENTIAL MANUAL DIFFERENTIAL (MANUAL DIFF)
--- NOTE | 2021-12-29 21:41 | PC.NURSE ---
Rechecked pt condition. No needs or complaints voiced. Call light within reach.
[2021-12-29 21:46] LABS: Alanine Aminotransferase 43 U/L (12-78); Albumin Level 4.4 g/dl (3.5-5.0); Albumin/Globulin Ratio 1.5 (1.1-1.8); Alkaline Phosphatase 138 U/L (38-126); Anion Gap 14.1 mEq/L (5-15); Aspartate Amino Transferase 35 U/L (14-36); Bilirubin,Total 0.2 mg/dl (0.2-1.3); Blood Urea Nitrogen 16 mg/dl (7-17); Calcium 9.5 mg/dl (8.4-10.2); Carbon Dioxide 28 mmol/L (22.0-30.0); Chloride 101 mmol/L (98-107); Creatinine Clearance Estimated 99 mL/min (50-200); Estimated Glomerular Filt Rate 118 ml/min (>60); GFR (African American) 143 ML/MIN (>60); Glucose 76 mg/dl (74-100); Potassium 4.1 mmoL/L (3.5-5.1); Sodium 139 mmol/L (136-145); Total Protein,Serum 7.4 g/dl (6.3-8.2)
[2021-12-29 22:06] LABS: Eosinophils % 1 % (0-3); Lymphocytes % 19 % (10-50); Monocytes % 1 % (2-9); Neutrophils % 79 % (42-76); Total Cells Counted 100
[2021-12-29 22:08] LABS: Platelet Estimate Normal; Stomatocytes 1+
--- NOTE | 2021-12-29 22:08 | PC.NURSE ---
Pt provided with warm blanket
--- NOTE | 2021-12-29 22:22 | HMH.EDFALL ---
Discharge Plan Disposition Patient Disposition: Home, Self-Care Chief Complaint: Fall Prescriptions Prescriptions: No Action omeprazole 10 MG capsule,delayed release(DR/EC) 10 mg PO DAILY Referrals Follow up/Referrals: Mega Reynolds MD [Primary Care Provider] - See instructions Clinical Impressions Clinical Impression: Concussion, Leukocytosis, Injury of lower extremity, Concussion without loss of consciousness, Concussion with loss of consciousness Instructions Patient Instructions: DI for Postconcussion Syndrome Discharge ED Provider: Aaron Quiñonez Fall HPI General Chief Complaint: Fall Stated Complaint: AO 12/23/21 leg swollen,ARMENTA, lightheaded Time Seen by Provider: 12/29/21 22:22 Mode of Arrival: Ambulatory Source of Information: Patient and Medical Record Limitations: No Limitations Description of Symptoms (Recalled from ER Triage Doc. by RN): pt states on was at work and co worker was choking so pt performed heimlich and fell and hit head and lt leg. pt c/o of ARMENTA,neck pain,dizzinessmlt leg pain History of Present Illness HPI Narrative: fell last week and hit head and lt lower leg and has persistent armenta and swollen lt lower leg - has been walking on leg in the last few days - no new injury no focal neuro sx complaint: fall Onset (ago): day(s) Fall from: standing Fall witnessed: yes, by bystander Place fall occurred: work Loss of consciousness: unsure Prolonged down time: no Context: tripped/slipped Location of injury: head Location of injury - extremities: Left: lower leg Severity: moderate Associated symptoms (after fall): headache and lightheaded Related Data Home Medications Medication Instructions Recorded Confirmed omeprazole 10 mg capsule,delayed 10 mg PO DAILY GERD 08/26/21 10/28/21 release Allergies Allergy/AdvReac Type Severity Reaction Status Date / Time ceftriaxone [From Rocephin] Allergy Verified 08/08/19 18:19 PFSH PFSH 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 current occupational exposures/hazards: No caffeine: Yes ROS Obtained: Yes All systems reviewed & no additional complaints except as documented Physical Exam General General appearance: alert Head Head exam: normocephalic Eye Eye exam: Present PERRL and EOMI ENT ENT exam: Present mucous membranes moist Neck Neck exam: Absent trachea midline Respiratory Respiratory exam: Absent respiratory distress Cardiovascular Cardiovascular exam: Present regular rate Abdominal Exam Abdominal exam: Present soft Expanded Lower Extremity Exam Left: Hip/Pelvis exam: Present pelvis stable Lower leg exam: Present tenderness, ecchymosis and other (no evid of compartment syn); Absent full ROM or Homans' sign Neurovascular/Tendon exam: Absent pulse deficit or motor deficit Neurological Exam Neurological exam: Present alert, oriented X3 and CN II-XII intact Psychiatric Psychiatric exam: Present normal affect Skin Skin exam: Absent rash Medical Decision Making Medical Records Medical records reviewed: Yes I reviewed the patient's medical records. Herbert Inquiry Pt receiving controlled substance: No Vital Signs: 12/29/21 20:02 12/29/21 20:20 12/29/21 20:30 Temperature 98.4 F Temperature Source Oral Pulse Rate 103 H 100 H Pulse Rate [Right] 104 H Respiratory Rate 18 Blood Pressure 153/106 H 136/95 H Blood Pressure [Right Arm] 153/106 H Blood Pressure Mean [Right Arm] 121 02 Sat by Pulse Oximetry 99 99 95 Oxygen Delivery Method Room Air Room Air 12/29/21 21:00 12/29/21 21:40 Temperature Temperature Source Pulse Rate 102 H 86 Pu
[2021-12-29 22:31] LABS: Microscopic, Urine URINE MICROSCOPIC (MICROSCOPIC)
[2021-12-29 22:39] LABS: Appearance,Urine CLEAR (Clear); Bilirubin,Urine Negative (Negative); Blood, Urine TRACE-I (Negative); Color,Urine YELLOW (Yellow); Glucose,Urine (UA) Negative (Negative); Ketones,Urine Negative (Negative); Leukocyte Esterase,Urine Negative (Negative); Nitrate,Urine Negative (Negative); PH,Urine 7.5 (5.0-8.5); Protein,Urine Negative (Negative); Urobilinogen,Urine 0.2 EU/dl (0.2)
[2021-12-29 23:15] LABS: Bacteria,Urine Trace /lpf; RBC,Urine Occasional #/hpf (0-3)
[2021-12-29 23:16] VITALS: BP 135/78; PULSE 97; RESP 16; TEMP 36.9; O2SAT 94
== END 2021-12-29 23:19 | disposition home or self-care (01) ==
PROVIDERS: Emergency Provider Emergency Medicine; PCP Family Medicine
DX: M54.2 Cervicalgia (principal); M79.605 Pain in left leg; M79.89 Other specified soft tissue disorders; R42 Dizziness and giddiness; R51.9 Headache, unspecified; D72.829 Elevated white blood cell count, unspecified; K21.9 Gastro-esophageal reflux disease without esophagitis; F17.210 Nicotine dependence, cigarettes, uncomplicated; Z79.899 Other long term (current) drug therapy; Z88.8 Allergy status to other drugs, medicaments and biological substances
CPT/HCPCS: 70450; 71046; 72125; 73562; 73590; 80053; 81001; 81025; 85007; 85025; 93005; 99285

== ENCOUNTER → 2021-12-30 10:49 | Outpatient (CLI) | payer OTHER, SELFPAY ==
--- NOTE | 2021-12-30 | CA_ITS ---
FINAL REPORT TECHNIQUE: Color Doppler, duplex Doppler and compression sonography of the left lower extremity deep venous systems was performed. 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 She states since the accident the leg has progressively gotten more painful, swollen, red, and bruised. smoker, morbid obesity. FINDINGS: There is no evidence of deep venous thrombosis from the level of the groin to the calf. The veins are patent and compressible. IMPRESSION: No evidence of deep venous thrombosis left lower extremity. Reviewed, Interpreted and Dictated by Luiz Simon III, MD Transcribed by Moira Soriano Authenticated and [facility]
== END ==
PROVIDERS: PCP Family Medicine; Visit Provider Emergency Medicine
DX: M79.662 Pain in left lower leg (principal)
CPT/HCPCS: 93971

== ENCOUNTER 2022-01-19 10:05 | Emergency (ER) | payer OTHER, SELFPAY ==
[2022-01-19 10:27] VITALS: BP 140/81; PULSE 99; RESP 15; TEMP 37.2; O2SAT 98; BMI 59.3
[2022-01-19 10:29] LABS: UTC Influenza A Antigen Negative (Negative); UTC Strep Screen (Rapid) Negative (Negative)
[2022-01-19 10:30] LABS: UTC Influenza B Antigen Negative (Negative)
--- NOTE | 2022-01-19 10:39 | EXP.UTC ---
Discharge Plan Disposition Patient Disposition: Home, Self-Care Condition: Good Prescriptions Prescriptions: New ibuprofen [ibuprofen] 600 mg tablet 600 mg PO Q6HP PRN (Reason: Mild Pain) Qty: 30 0RF hocdjkawkpvxckj-oidakdcry-PO [Bromfed DM] 2-30-10 mg/5 mL Syrup 5 ml PO Q6H PRN (Reason: Cough) Qty: 240 0RF No Action omeprazole 10 MG capsule,delayed release(DR/EC) 10 mg PO DAILY Referrals Follow up/Referrals: Mega Reynolds MD [Primary Care Provider] - See instructions Activity Restrictions/Add. Instructions Additional Instructions/Restrictions: Drink plenty of fluids. Take tylenol or ibuprofen for pain or fever. Take the medications as directed. Follow up with your regular doctor. GO TO THE ER FOR ANY WORSENING SYMPTOMS Clinical Impressions Clinical Impression: Viral syndrome Stand Alone Forms Stand Alone Forms: Work/School Release Instructions Patient Instructions: DI for Viral Syndrome Discharge ED Provider: Jerry Weber [facility] General Stated complaint: chills, fever, sore throat, BOWLING Mode of Arrival: Ambulatory Source of Information: Patient Limitations: No Limitations Time Seen by Provider: 01/19/22 10:30 Description of Symptoms (Recalled from Triage Doc. by RN): pt comes in with c/o fever, body aches, chills, sore throat. symptoms began last night HEENT Symptoms (Recalled from RN notes): Yes Resp Symptoms (Recalled from RN notes): No Skin Symptoms (Recalled from RN notes): No MS Symptoms (Recalled from RN notes): No Functional Status (Recalled from RN notes): n/a History of Present Illness Provider Complaint: She states that since last night she has had chills, body aches, n/v and she has felt very bad. She believes that she has the flu. Related Data Home Medications Medication Instructions Recorded Confirmed omeprazole 10 mg capsule,delayed 10 mg PO DAILY GERD 08/26/21 10/28/21 release Previous Rx's Medication Instructions Recorded zmylahqotubkclj-hfwokfcmcjkwjzr-PS 5 ml PO Q6H PRN Cough #240 mL 01/19/22 2 mg-30 mg-10 mg/5 mL oral syrup (Bromfed DM) ibuprofen 600 mg tablet 600 mg PO Q6HP PRN Mild Pain #30 01/19/22 tabs Allergies Allergy/AdvReac Type Severity Reaction Status Date / Time ceftriaxone [From Rocephin] Allergy Verified 01/19/22 10:29 Worker's Comp Is this a Worker's Comp case?: No PFSH PFSH 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 current occupational exposures/hazards: No caffeine: Yes ROS Obtained: Yes All systems reviewed & no additional complaints except as documented Constitutional Constitutional: Reports chills and Reports fever(s) Eyes Eyes: Denies eye discharge ENT Ears, Nose, Mouth, and Throat: Reports as per HPI Cardiovascular Cardiovascular: Denies chest pain Respiratory Respiratory: Denies chest congestion and Reports cough Gastrointestinal Gastrointestingal: Reports nausea; Denies abdominal pain, constipation, cramping, diarrhea or vomiting Musculoskeletal Musculoskeletal: Denies arthralgias Integumentary/Breasts Skin/Breast: Denies rash Neurologic Neurologic: Denies paresthesias Physical Exam General General appearance: alert and in no apparent distress Head Head exam: atraumatic, normocephalic and normal inspection Eye Eye exam: Present normal appearance, PERRL and EOMI ENT ENT exam: Present mucous membranes moist and normal external ear exam Expanded ENT Exam TM/Canal exam: Bilateral TM: erythema and bulging Nose exam: Absent sinus tenderness Mouth exam: Present normal external inspection; Absent drooling Teeth exam: Pre
[2022-01-19 11:30] VITALS: BP 140/81; PULSE 90; RESP 15; TEMP 37.2
== END 2022-01-19 11:35 | disposition home or self-care (01) ==
PROVIDERS: Emergency Provider Nurse Practitioner Family; PCP Family Medicine
DX: R50.9 Fever, unspecified (principal); J02.9 Acute pharyngitis, unspecified; R51.9 Headache, unspecified; B34.9 Viral infection, unspecified
CPT/HCPCS: 87804; 87880; 99212; G0463

== ENCOUNTER 2022-01-24 00:56 | Emergency (ER) | payer OTHER, SELFPAY ==
[2022-01-24 00:57] VITALS: BP 138/75; PULSE 124; RESP 16; TEMP 37.4; O2SAT 95; BMI 52.2
--- NOTE | 2022-01-24 01:34 | XR_ITS ---
PROCEDURE INFORMATION: Exam: XR Chest Exam date and time: 01/24/2022 1:32 AM Age: 31 years old Clinical indication: Cough; Additional info: Congestion TECHNIQUE: Imaging protocol: Radiologic exam of the chest. Views: 2 views. COMPARISON: CR XR CHEST 2V 12/29/2021 9:00 PM FINDINGS: Lungs: Pulmonary vasculature grossly normal. Mild alveolar opacity in the central to medial left lung base and right infrahilar region, atelectasis versus pneumonia. Pleural spaces: No pleural effusion. No pneumothorax. Heart/Mediastinum: Heart size normal. No tracheal/mediastinal shift. Bones/joints: No acute osseous abnormalities are identified. IMPRESSION: Bibasilar alveolar opacities, greater on the left, concerning for multifocal pneumonia versus atelectasis.
[2022-01-24 01:38] LABS: Coronavirus 19, PCR Not Detected (NotDetected); Influenza A, PCR Not Detected (NotDetected); Influenza B, PCR Not Detected (NotDetected)
--- NOTE | 2022-01-24 02:05 | PC.NURSE ---
Dr. Quiñonez at
--- NOTE | 2022-01-24 02:09 | HMH.EDURI ---
Discharge Plan Disposition Patient Disposition: Home, Self-Care Prescriptions Prescriptions: New azithromycin [azithromycin] 250 mg tablet 250 mg PO DIRECTED Qty: 6 0RF Rx Instructions: Take two (2) tablets on day #1, then one (1) tablet day #2 thru #5 benzonatate 100 mg Capsule 100 mg PO Q8H Qty: 20 0RF prednisone [prednisone] 20 mg tablet 20 mg PO BID Qty: 10 0RF No Action omeprazole 10 MG capsule,delayed release(DR/EC) 10 mg PO DAILY ibuprofen [ibuprofen] 600 mg tablet 600 mg PO Q6HP PRN (Reason: Mild Pain) Qty: 30 0RF pjflacjgkqhjpdn-dlhlsqpsq-ZV [Bromfed DM] 2-30-10 mg/5 mL Syrup 5 ml PO Q6H PRN (Reason: Cough) Qty: 240 0RF Referrals Follow up/Referrals: Mega Reynolds MD [Primary Care Provider] - See instructions Clinical Impressions Clinical Impression: CAP (community acquired pneumonia), Reactive airway disease Instructions Patient Instructions: DI for Acute Bronchitis Discharge ED Provider: Aaron Quiñonez URI/Sore Throat HPI General Chief Complaint: Upper Respiratory Infection Stated Complaint: Cough, congestion, chills, body aches Time Seen by Provider: 01/24/22 02:11 Mode of Arrival: Ambulatory Source of Information: Patient and Medical Record Limitations: No Limitations Description of Symptoms (Recalled from ER Triage Doc. by RN): pt c/o cough,congestion,fever,bodyaches,chills since monday History of Present Illness HPI Narrative: cough and congestion with prod cough over the last few days - was seen in the [facility] - pt does smoke Complaint: fever, cough and nasal congestion Onset (ago): hour(s) Duration: intermittent Severity: moderate Description of mucous: green Able to tolerate fluids by mouth: Yes Associated symptoms: denies other symptoms Treatments prior to arrival: none Related Data Home Medications Medication Instructions Recorded Confirmed omeprazole 10 mg capsule,delayed 10 mg PO DAILY GERD 08/26/21 10/28/21 release Previous Rx's Medication Instructions Recorded tcakcbrngbfpmnc-wwdvvwxbbbrwwvi-XB 5 ml PO Q6H PRN Cough #240 mL 01/19/22 2 mg-30 mg-10 mg/5 mL oral syrup (Bromfed DM) ibuprofen 600 mg tablet 600 mg PO Q6HP PRN Mild Pain #30 01/19/22 tabs azithromycin 250 mg tablet 250 mg PO DIRECTED #6 tabs 01/24/22 benzonatate 100 mg capsule 100 mg PO Q8H #20 caps 01/24/22 prednisone 20 mg tablet 20 mg PO BID #10 tabs 01/24/22 Allergies Allergy/AdvReac Type Severity Reaction Status Date / Time ceftriaxone [From Rocephin] Allergy Verified 01/19/22 10:29 PFSH PFSH 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 current occupational exposures/hazards: No caffeine: Yes ROS Obtained: Yes All systems reviewed & no additional complaints except as documented Physical Exam General General appearance: alert Head Head exam: normocephalic Eye Eye exam: Present PERRL and EOMI ENT ENT exam: Present mucous membranes moist Neck Neck exam: Present trachea midline Respiratory Respiratory exam: Present normal lung sounds bilaterally; Absent respiratory distress Cardiovascular Cardiovascular exam: Present regular rate Abdominal Exam Abdominal exam: Present soft Extremities Exam Extremities exam: Present full ROM Neurological Exam Neurological exam: Present alert, oriented X3 and CN II-XII intact Psychiatric Psychiatric exam: Present normal affect Skin Skin exam: Absent rash Medical Decision Making Medical Records Medical records reviewed: Yes I reviewed the patient's medical records. Herbert Inquiry Pt receiving controlled substance: No Vital Si
[2022-01-24 02:34] VITALS: BP 138/73; PULSE 110; RESP 18; TEMP 36.6; O2SAT 99
== END 2022-01-24 02:42 | disposition home or self-care (01) ==
PROVIDERS: Emergency Provider Emergency Medicine; PCP Family Medicine
DX: J18.9 Pneumonia, unspecified organism (principal); J45.909 Unspecified asthma, uncomplicated
CPT/HCPCS: 71046; 99283; C9803; U0003; U0005

== ENCOUNTER 2022-05-29 06:29 | Emergency (ER) | payer OTHER, SELFPAY ==
--- NOTE | 2022-05-29 06:25 | ECG_ITS ---
APPROVED REPORT Exam: Resting ECG HR:120 bpm ECG Measurements Heart Rate 120 AXES GA 167 P 66 QRSd 77 QRS 32 QT 306 T 56 QTc 377 Conclusion SINUS TACHYCARDIA LOW QRS VOLTAGE IN PRECORDIAL LEADS [QRS DEFLECTION < 1.0 mV IN CHEST LEADS] ABNORMAL RHYTHM ECG UNCONFIRMED REPORT Electronically signed by : Mega Jaramillo MD 05/30/2022 19:52:10
[2022-05-29 06:30] VITALS: BP 158/101; PULSE 126; RESP 24; TEMP 37.4; O2SAT 95; BMI 59.5
--- NOTE | 2022-05-29 06:43 | XR_ITS ---
PROCEDURE INFORMATION: Exam: XR Chest Exam date and time: 05/29/2022 6:42 AM Age: 31 years old Clinical indication: Cough and fever; Additional info: Cough, fever, epigastric pain TECHNIQUE: Imaging protocol: Radiologic exam of the chest. Views: 2 views. COMPARISON: CR XR CHEST 2V 01/24/2022 1:32 AM FINDINGS: Lungs: Unremarkable. No consolidation. Pleural spaces: Unremarkable. No pleural effusion. No pneumothorax. Heart/Mediastinum: Unremarkable. No cardiomegaly. Bones/joints: Unremarkable. IMPRESSION: No acute findings.
--- NOTE | 2022-05-29 06:55 | PC.NURSE ---
Pt back from xray
[2022-05-29 06:56] LABS: Basophils # 0.1 K/mm3 (0-0.2); Basophils % 0.9 % (0.1-2.0); Eosinophils # 0.1 K/mm3 (0.0-0.4); Eosinophils % 1.7 % (0.1-12.0); Hematocrit 43.1 % (37.0-47.0); Hemoglobin 13.7 g/dL (12.2-16.2); Lymphocytes # 0.6 K/mm3 (0.7-4.5); Lymphocytes % 7.4 % (10-50); Mean Corpuscular HGB Conc 31.7 g/dL (31.8-35.4); Mean Corpuscular Hemoglobin 28.9 pg (27.0-31.2); Mean Corpuscular Volume 91.1 fl (81-99); Mean Platelet Volume 7.7 fl (7.4-10.4); Monocytes # 0.5 K/mm3 (0.1-1.0); Monocytes % 6.2 % (1.7-9.3); Neutrophils # 6.5 K/mm3 (1.8-7.8); Neutrophils % 83.7 % (37.0-80.0); Platelet Count 235 K/mm3 (142-424); Red Blood Count 4.73 M/mm3 (4.20-5.40); Red Cell Distribution Width 14.5 % (11.5-17.5); White Blood Count 7.7 K/mm3 (4.8-10.8)
[2022-05-29 06:59] VITALS: BP 145/88; PULSE 128; O2SAT 93
[2022-05-29 06:59] LABS: Chloride 104 mmol/L (98-107); Potassium 4.1 mmoL/L (3.5-5.1); Sodium 138 mmol/L (136-145)
[2022-05-29 07:01] LABS: Amylase 68 U/L (30-110); Bilirubin,Unconjugated 0.2 mg/dL (0.0-1.1); Blood Urea Nitrogen 18 mg/dl (7-17); Creatinine Clearance Estimated 75 mL/min (50-200); Estimated Glomerular Filt Rate 85 ml/min (>60); GFR (African American) 103 ML/MIN (>60)
[2022-05-29 07:02] LABS: Alanine Aminotransferase 38 U/L (12-78); Albumin Level 4.2 g/dl (3.5-5.0); Alkaline Phosphatase 106 U/L (38-126); Anion Gap 10.1 mEq/L (5-15); Aspartate Amino Transferase 31 U/L (14-36); Bilirubin,Direct 0.1 mg/dl (0.0-0.4); Bilirubin,Indirect 0.2 mg/dL (0.0-0.9); Bilirubin,Total 0.3 mg/dl (0.2-1.3); Calcium 8.9 mg/dl (8.4-10.2); Carbon Dioxide 28 mmol/L (22.0-30.0); Glucose 107 mg/dl (74-100); Lipase 52 U/L (23-300); Total Protein,Serum 7.1 g/dl (6.3-8.2)
[2022-05-29 07:07] LABS: Microscopic, Urine URINE MICROSCOPIC (MICROSCOPIC)
[2022-05-29 07:08] LABS: C-Reactive Protein 35.4 mg/L (0-4)
[2022-05-29 07:08] LABS: Appearance,Urine CLEAR (Clear); Bilirubin,Urine Negative (Negative); Blood, Urine TRACE-I (Negative); Color,Urine YELLOW (Yellow); Glucose,Urine (UA) Negative (Negative); Ketones,Urine Negative (Negative); Leukocyte Esterase,Urine Negative (Negative); Nitrate,Urine Negative (Negative); PH,Urine 7.5 (5.0-8.5); Protein,Urine Negative (Negative); Urobilinogen,Urine 0.2 EU/dl (0.2)
[2022-05-29 07:09] LABS: HCG Qualitative, Serum Negative (Negative)
[2022-05-29 07:09] LABS: Influenza A, PCR Not Detected (NotDetected); Influenza B, PCR Not Detected (NotDetected)
--- NOTE | 2022-05-29 07:10 | CT_ITS ---
PROCEDURE INFORMATION: Exam: CT Abdomen And Pelvis With Contrast Exam date and time: 05/29/2022 7:25 AM Age: 31 years old Clinical indication: Abdominal pain; Epigastric; Additional info: Luq abd pain with fever TECHNIQUE: Imaging protocol: Computed tomography of the abdomen and pelvis with contrast. Radiation optimization: All CT scans at this facility use at least one of these dose optimization techniques: automated exposure control; mA and/or kV adjustment per patient size (includes targeted exams where dose is matched to clinical indication); or iterative reconstruction. Contrast material: ISOVUE; Contrast volume: 75 ml; Contrast route: IV; REPORTING DATA: Count of CT and Cardiac NM exams in prior 12 months: This patient has received 3 known CTs and 0 known cardiac nuclear medicine studies in the 12 months prior to the current study. COMPARISON: CT ABDOMEN PELVIS WO CON 12/26/2019 9:55 AM FINDINGS: Liver: Normal. No mass. Gallbladder and bile ducts: A stone is seen in the neck of the gallbladder. Pancreas: Normal. No ductal dilation. Spleen: Normal. No splenomegaly. Adrenal glands: Normal. No mass. Kidneys and ureters: Normal. No hydronephrosis. Stomach and bowel: Unremarkable. No obstruction. No mucosal thickening. Appendix: No evidence of appendicitis. Intraperitoneal space: Unremarkable. No free air. No significant fluid collection. Vasculature: Unremarkable. No abdominal aortic aneurysm. Lymph nodes: Unremarkable. No enlarged lymph nodes. Urinary bladder: Unremarkable as visualized. Reproductive: Unremarkable as visualized. Bones/joints: Unremarkable. No acute fracture. Soft tissues: Unremarkable. IMPRESSION: Cholelithiasis without evidence of acute cholecystitis.
--- NOTE | 2022-05-29 07:21 | PC.NURSE ---
pt to radiology
[2022-05-29 07:25] LABS: Erythrocyte Sedimentation Rate 50 mm/hr (0-20)
[2022-05-29 07:27] LABS: Squamous Epithelial Cell,Urine Occasional #/hpf (0-5); WBC,Urine Occasional #/hpf (0-3)
--- NOTE | 2022-05-29 07:30 | PC.NURSE ---
pt arrived back to room
[2022-05-29 07:50] LABS: Coronavirus 19, PCR Detected (NotDetected)
--- NOTE | 2022-05-29 07:51 | HMH.EDFEV ---
Discharge Plan Disposition Patient Disposition: Home, Self-Care Chief Complaint: Fever Prescriptions Prescriptions: No Action omeprazole 10 MG capsule,delayed release(DR/EC) 10 mg PO DAILY ibuprofen [ibuprofen] 600 mg tablet 600 mg PO Q6HP PRN (Reason: Mild Pain) Qty: 30 0RF Referrals Follow up/Referrals: Mega Renyolds MD [Primary Care Provider] - See instructions Clinical Impressions Clinical Impression: COVID-19, Cholelithiasis Stand Alone Forms Stand Alone Forms: Work/School Release Instructions Patient Instructions: DI for Fever (Symptom) -- Adult, DI for COVID-19 (Suspected or Confirmed ) Discharge ED Provider: Olamide (ED),Aaron Burciaga Fever HPI General Chief Complaint: Fever Stated Complaint: Chest Pain Time Seen by Provider: 05/29/22 07:15 Mode of Arrival: Family Vehicle Source of Information: Patient and Medical Record Limitations: No Limitations Description of Symptoms (Recalled from ER Triage Doc. by RN): Pt c/o epigastric pain that readiates to LUQ ABD. She also c/o chest congestion, fever (t-max 102), chills, headache, and sinus congestion that began when she woke up yesterday morning (05/28) and has steadily worsened. Pt reports the pain has kept her from sleeping over-night. She has a hx of GERD and took Pepcid without relief. States she also has been taking OTC cold medicines as well as tylenol & motrin. Reports mild dry cough. Denies any SOA. She also reports dark and cloudy urine. History of Present Illness HPI Narrative: has epigastric pain this am and over the last 2 days has fever and chills with achey and congestion complaint: fever Onset (ago): day(s) Associated symptoms: chills Treatments prior to arrival fever: acetaminophen and ibuprofen Related Data Home Medications Medication Instructions Recorded Confirmed omeprazole 10 mg capsule,delayed 10 mg PO DAILY GERD 08/26/21 10/28/21 release Previous Rx's Medication Instructions Recorded ibuprofen 600 mg tablet 600 mg PO Q6HP PRN Mild Pain #30 01/19/22 tabs Allergies Allergy/AdvReac Type Severity Reaction Status Date / Time ceftriaxone [From Rocephin] Allergy Verified 01/19/22 10:29 [facility] Disclaimer: The information contained in this section may have been updated after the patient was seen, as this information can be updated by other users. 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 current occupational exposures/hazards: No caffeine: Yes ROS Obtained: Yes All systems reviewed & no additional complaints except as documented Physical Exam General General appearance: alert Head Head exam: normocephalic Eye Eye exam: Present PERRL and EOMI; Absent scleral icterus ENT ENT exam: Present mucous membranes moist Neck Neck exam: Present trachea midline Respiratory Respiratory exam: Present normal lung sounds bilaterally; Absent respiratory distress Cardiovascular Cardiovascular exam: Present regular rate Abdominal Exam Abdominal exam: Present soft; Absent tenderness, guarding or rebound Abdominal tenderness: Present epigastrium and mild Extremities Exam Extremities exam: Present full ROM Neurological Exam Neurological exam: Present alert, oriented X3 and CN II-XII intact; Absent motor sensory deficit Psychiatric Psychiatric exam: Present normal affect Skin Skin exam: Absent rash Medical Decision Making Medical Records Medical records reviewed: Yes I reviewed the patient's medical records. Herbert Inquiry Pt receiving controlled substance: No Vital Signs: 05/29/22 06:30 05/29/22 06:40 05/29/22 06:59 Temperature 9
[2022-05-29 07:54] LABS: Troponin I < 0.01 ng/ml (0.00-0.034)
[2022-05-29 08:01] VITALS: BP 127/67; PULSE 107; RESP 22; O2SAT 95
[2022-05-29 09:01] VITALS: BP 127/67; PULSE 101; RESP 18; TEMP 37.1
[2022-05-29 09:58] LABS: Procalcitonin 0.203 ng/mL (0.0-2.0)
== END 2022-05-29 09:03 | disposition home or self-care (01) ==
PROVIDERS: Emergency Provider Emergency Medicine; PCP Family Medicine
DX: U07.1 COVID-19 (principal); K80.20 Calculus of gallbladder without cholecystitis without obstruction
CPT/HCPCS: 71046; 74177; 80048; 80076; 81001; 82150; 83690; 83735; 84145; 84484; 84703; 85025; 85651; 86140; 93005; 96360; 96374; 96375; 99285; C9803; J0131; J2405; Q9967; U0003; U0005

== ENCOUNTER 2022-07-05 01:36 | Emergency (ER) | payer OTHER, SELFPAY ==
[2022-07-05 01:49] VITALS: BP 177/93; PULSE 92; RESP 14; TEMP 36.8; O2SAT 98; BMI 58.6
[2022-07-05 02:00] VITALS: BP 137/88; PULSE 91; O2SAT 95
--- NOTE | 2022-07-05 02:11 | CT_ITS ---
PROCEDURE INFORMATION: Exam: CT Abdomen And Pelvis With Contrast Exam date and time: 07/05/2022 2:45 AM Age: 31 years old Clinical indication: Abdominal pain; Periumbilical TECHNIQUE: Imaging protocol: Computed tomography of the abdomen and pelvis with contrast. Radiation optimization: All CT scans at this facility use at least one of these dose optimization techniques: automated exposure control; mA and/or kV adjustment per patient size (includes targeted exams where dose is matched to clinical indication); or iterative reconstruction. Contrast material: ISOVUE; Contrast volume: 75 ml; Contrast route: IV; REPORTING DATA: Count of CT and Cardiac NM exams in prior 12 months: This patient has received 4 known CTs and 0 known cardiac nuclear medicine studies in the 12 months prior to the current study. COMPARISON: CT ABDOMEN PELVIS W CON 05/29/2022 7:25 AM FINDINGS: Lungs: Clear basilar lung parenchyma. Pleural spaces: No pleural fluid. Heart: Normal heart size. Liver: Liver measures 20.8 cm in length. Gallbladder and bile ducts: Postprandial gallbladder appears contracted around of low density stone. No pericholecystic inflammatory change or biliary tree dilation. Pancreas: Normal. No ductal dilation. Spleen: Spleen measures 10.9 cm in length. Adrenal glands: Normal configuration. Kidneys and ureters: No evidence of obstruction. No visible inflammation. Stomach and bowel: Unremarkable. No obstruction. No mural thickening. Appendix: Normal appendix is confirmed. Intraperitoneal space: No free air. No significant fluid collection. Vasculature: Normal caliber arterial structures. Lymph nodes: No enlarged lymph nodes. Urinary bladder: Unremarkable as visualized. Reproductive: Physiologic appearance for age. Bones/joints: No fracture or destructive lesion. Soft tissues: Unremarkable. IMPRESSION: Gallbladder appears contracted around a stone, but there is no evidence gallbladder inflammatory change. Otherwise, no acute abnormality in the abdomen or pelvis. Normal appendix is confirmed. No urolithiasis.
--- NOTE | 2022-07-05 02:13 | HMH.EDGENADL ---
Discharge Plan Disposition Patient Disposition: Home, Self-Care Condition: Good Prescriptions Prescriptions: No Action omeprazole 10 MG capsule,delayed release(DR/EC) 10 mg PO DAILY ibuprofen [ibuprofen] 600 mg tablet 600 mg PO Q6HP PRN (Reason: Mild Pain) Qty: 30 0RF Referrals Follow up/Referrals: Mega Reynolds MD [Primary Care Provider] - See instructions Activity Restrictions/Add. Instructions Additional Instructions/Restrictions: Please eat low-fat diet that will make your gallbladder not act up. Follow-up with your primary care doctor with outpatient GI referral and a gallbladder ultrasound. Clinical Impressions Clinical Impression: Abdominal pain, Gallstones, Diarrhea Instructions Patient Instructions: DI for Skin Abscess Discharge ED Provider: Marya Gloria General Adult HPI General Chief complaint: Skin/Abscess/Foreign Body Stated complaint: Stomach pain,something long and flat in stool Time Seen by Provider: 07/05/22 01:43 Mode of Arrival: Family Vehicle Source of Information: Patient Limitations: No Limitations Description of Symptoms (Recalled from ER Triage Doc. by RN): 31 yo female presents with chief complaint of foreign body in stool . states she was wiping following a formed bowel movement and noted a flat loyola object of some length in her stool. recounts that she had vegetables and beef and rice and chicken as her last two meals. additionally states that normally her stools are loose in consistency and this one was formed. denies change in medications. denies any recent changes to dietary habits. denies seeing blood. denies dysuria. denies n/v. states she has noted excessive flatulence. also reports a headache that otc meds isn't helping . PMH: GERD, gallstones, colposcopy for pre-cancerous cells x 2, and a procedure on an elbow. Current MED: omeprazole. History of Present Illness HPI narrative: Patient is a 31-year female who is here secondary to abdominal pain, something foreign in her stool with diarrhea. Patient said that she has chronic diarrhea. She has never had a GI doctor and never had a colonoscopy endoscopy. Patient stated that she is not having nausea vomiting. She patient complains about periumbilical and epigastric pain. She denies any fevers chills urgency frequency burning urination. She has her gallbladder or appendix. Onset (ago): hour(s) Location: abdomen Radiation: non-radiation Severity: moderate Severity scale (1-10): 6 Quality: aching and dull Consistency: constant Relieving factors: none Exacerbating factors: none Treatments prior to arrival: none Related Data Home Medications Medication Instructions Recorded Confirmed omeprazole 10 mg capsule,delayed 10 mg PO DAILY GERD 08/26/21 10/28/21 release Previous Rx's Medication Instructions Recorded ibuprofen 600 mg tablet 600 mg PO Q6HP PRN Mild Pain #30 01/19/22 tabs Allergies Allergy/AdvReac Type Severity Reaction Status Date / Time ceftriaxone [From Rocephin] Allergy Verified 01/19/22 10:29 [facility] Disclaimer: The information contained in this section may have been updated after the patient was seen, as this information can be updated by other users. 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
[2022-07-05 02:23] LABS: Microscopic, Urine URINE MICROSCOPIC (MICROSCOPIC)
[2022-07-05 02:26] LABS: Appearance,Urine CLEAR (Clear); Bilirubin,Urine Negative (Negative); Blood, Urine 2+ (Negative); Color,Urine YELLOW (Yellow); Glucose,Urine (UA) Negative (Negative); Ketones,Urine Negative (Negative); Leukocyte Esterase,Urine Negative (Negative); Nitrate,Urine Negative (Negative); Protein,Urine Negative (Negative); Urobilinogen,Urine 0.2 EU/dl (0.2)
[2022-07-05 02:27] LABS: Urine Pregnancy, HCG Qual. Negative (Negative)
[2022-07-05 02:48] LABS: Basophils # 0.1 K/mm3 (0-0.2); Basophils % 0.5 % (0.1-2.0); Eosinophils # 0.2 K/mm3 (0.0-0.4); Eosinophils % 1.6 % (0.1-12.0); Hematocrit 46.3 % (37.0-47.0); Lymphocytes # 3.3 K/mm3 (0.7-4.5); Mean Corpuscular HGB Conc 32.3 g/dL (31.8-35.4); Mean Corpuscular Hemoglobin 29.1 pg (27.0-31.2); Mean Corpuscular Volume 90.1 fl (81-99); Mean Platelet Volume 7.7 fl (7.4-10.4); Monocytes # 0.6 K/mm3 (0.1-1.0); Monocytes % 4.6 % (1.7-9.3); Neutrophils # 8.1 K/mm3 (1.8-7.8); Neutrophils % 66.3 % (37.0-80.0); Platelet Count 327 K/mm3 (142-424); Red Blood Count 5.15 M/mm3 (4.20-5.40); Red Cell Distribution Width 14.4 % (11.5-17.5); White Blood Count 12.1 K/mm3 (4.8-10.8)
[2022-07-05 02:48] LABS: Bacteria,Urine 1+ /lpf; WBC,Urine Occasional #/hpf (0-3)
[2022-07-05 02:50] LABS: Chloride 96 mmol/L (98-107); Potassium 3.8 mmoL/L (3.5-5.1); Sodium 138 mmol/L (136-145)
[2022-07-05 02:52] LABS: Alanine Aminotransferase 45 U/L (12-78); Aspartate Amino Transferase 36 U/L (14-36); Blood Urea Nitrogen 13 mg/dl (7-17); Creatinine Clearance Estimated 85 mL/min (50-200); Estimated Glomerular Filt Rate 99 ml/min (>60); GFR (African American) 120 ML/MIN (>60)
[2022-07-05 02:53] LABS: Albumin Level 4.4 g/dl (3.5-5.0); Albumin/Globulin Ratio 1.4 (1.1-1.8); Alkaline Phosphatase 100 U/L (38-126); Anion Gap 16.8 mEq/L (5-15); Bilirubin,Total 0.4 mg/dl (0.2-1.3); Calcium 9.1 mg/dl (8.4-10.2); Carbon Dioxide 29 mmol/L (22.0-30.0); Globulin 3.2 g/dL (1.3-3.2); Glucose 91 mg/dl (74-100); Lipase 60 U/L (23-300); Total Protein,Serum 7.6 g/dl (6.3-8.2)
[2022-07-05 03:12] LABS: INR 0.95 (0.9-1.1); Prothrombin Time 10.3 seconds (10.1-12.5)
[2022-07-05 04:00] VITALS: BP 127/78; PULSE 87; RESP 16; TEMP 36.8; O2SAT 98
== END 2022-07-05 04:02 | disposition home or self-care (01) ==
PROVIDERS: Emergency Provider Emergency Medicine; PCP Family Medicine
DX: K80.20 Calculus of gallbladder without cholecystitis without obstruction (principal); R10.13 Epigastric pain; R19.7 Diarrhea, unspecified; F17.210 Nicotine dependence, cigarettes, uncomplicated
CPT/HCPCS: 74177; 80053; 81001; 81025; 83605; 83690; 85025; 85610; 85730; 96360; 99284; 99285; Q9967

== ENCOUNTER 2022-08-11 19:50 | Emergency (ER) | payer OTHER, SELFPAY ==
[2022-08-11 19:55] VITALS: BP 154/90; PULSE 121; RESP 18; TEMP 37.3; O2SAT 98; BMI 54.3
--- NOTE | 2022-08-11 20:05 | EXP.UTC ---
Discharge Plan Disposition Patient Disposition: Home, Self-Care Condition: Good Prescriptions Prescriptions: New amoxicillin-pot clavulanate 875-125 mg Tablet 1 tab PO Q12H Qty: 20 0RF No Action omeprazole 10 MG capsule,delayed release(DR/EC) 10 mg PO DAILY Referrals Follow up/Referrals: Mega Reynolds MD [Primary Care Provider] - See instructions Activity Restrictions/Add. Instructions Additional Instructions/Restrictions: Take medication as prescribed Use dental balls as directed in the [facility] to help with Dental pain Warm salt water gargles may help with gum pain and tenderness Call and make appointment with Dentist for further evaluation and treatment Clinical Impressions Clinical Impression: Pain, dental Instructions Patient Instructions: Tooth Abscess, DI for Dental Pain Discharge ED Provider: Lillie Forrest [facility] [place] HPI General Stated complaint: mouth/gum pain, fever Mode of Arrival: Ambulatory Source of Information: Patient Limitations: No Limitations Time Seen by Provider: 08/11/22 20:05 Description of Symptoms (Recalled from Triage Doc. by RN): PATIENT C/O UPPER LEFT DENTAL PAIN AND LOW-GRADE FEVER HEENT Symptoms (Recalled from RN notes): Yes Resp Symptoms (Recalled from RN notes): No Skin Symptoms (Recalled from RN notes): No MS Symptoms (Recalled from RN notes): No Functional Status (Recalled from RN notes): WNL History of Present Illness Provider Complaint: Patient states that she recently had a tooth filled in her left upper back teeth States that for the last couple of weeks she has been having pain on and off in that area with swelling of her gums and feels like it is swollen in between her teeth but has been consistent today States that she isnt able chew or anything on that side and pain shoots up into her jaw area in her sinuses worried it is getting infected up there States that she thinks she may have a dental infection and today she has had a low grade fever Related Data Home Medications Medication Instructions Recorded Confirmed omeprazole 10 mg capsule,delayed 10 mg PO DAILY GERD 08/26/21 10/28/21 release Previous Rx's Medication Instructions Recorded amoxicillin 875 mg-potassium 1 tab PO Q12H #20 tabs 08/11/22 clavulanate 125 mg tablet Allergies Allergy/AdvReac Type Severity Reaction Status Date / Time ceftriaxone [From Rocephin] Allergy Verified 01/19/22 10:29 Worker's Comp Is this a Worker's Comp case?: No [facility] Disclaimer: The information contained in this section may have been updated after the patient was seen, as this information can be updated by other users. 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 current occupational exposures/hazards: No caffeine: Yes ROS Obtained: Yes All systems reviewed & no additional complaints except as documented and Yes Systems reviewed as appropriate & no additional complaints except as documented Constitutional Constitutional: Reports system reviewed and no additional complaints, except as documented and Reports as per HPI ENT Ears, Nose, Mouth, and Throat: Reports system reviewed and no additional complaints, except as documented, Reports as per HPI and Reports dental pain (with swelling in her gums in her left back that shoots up into jaw area) Physical Exam General General appearance: alert and in no apparent distress Expanded ENT Exam Nose exam: Present sinus tenderness (on left side with palpation) Teeth exam: Present dental tenderness #, gingival swelling and other (reports pain and swelling of gums in left back gumline with pain in t
[2022-08-11 20:09] VITALS: BP 154/90; PULSE 121; RESP 18; TEMP 37.3; O2SAT 98
== END 2022-08-11 20:23 | disposition home or self-care (01) ==
PROVIDERS: Emergency Provider Nurse Practitioner; PCP Family Medicine
DX: R68.84 Jaw pain (principal); K08.89 Other specified disorders of teeth and supporting structures; R50.9 Fever, unspecified; F17.210 Nicotine dependence, cigarettes, uncomplicated
CPT/HCPCS: 99212; 99214; G0463

== ENCOUNTER 2022-08-12 16:28 | Emergency (ER) | payer OTHER, SELFPAY ==
[2022-08-12 16:29] VITALS: BP 141/96; PULSE 140; RESP 20; TEMP 37.8; O2SAT 96; BMI 59.5
--- NOTE | 2022-08-12 16:56 | EXP.UTC ---
Discharge Plan Disposition Patient Disposition: Home, Self-Care Condition: Good Prescriptions Prescriptions: No Action omeprazole 10 MG capsule,delayed release(DR/EC) 10 mg PO DAILY clindamycin HCl 300 mg capsule 300 mg PO Q8H Referrals Follow up/Referrals: Mega Reynolds MD [Primary Care Provider] - See instructions Activity Restrictions/Add. Instructions Additional Instructions/Restrictions: Take tylenol or ibuprofen for pain or fever. Stop the augmentin. Start the clindamycin today. Follow up with your regular doctor. Follow up with your dentist. GO TO THE ER FOR ANY WORSENING SYMPTOMS Clinical Impressions Clinical Impression: Pain, dental, Dental abscess Instructions Patient Instructions: Tooth Abscess, DI for Tooth Abscess Discharge ED Provider: Jerry Weber [facility] General Stated complaint: fever, shakey Mode of Arrival: Ambulatory Source of Information: Patient Limitations: No Limitations Time Seen by Provider: 08/12/22 16:56 Description of Symptoms (Recalled from Triage Doc. by RN): Patient states she was seen here last night for an infected tooth and was given an Augmentin prior to discharge. States that one hour after taking the Augmentin she began to have a fever and chills and states her entire body begins to shakes. States she felt much better this morning and took her medicine around noon today and the body shakes and chills. States she gets like this when she is given rocephin too. HEENT Symptoms (Recalled from RN notes): Yes Resp Symptoms (Recalled from RN notes): No Skin Symptoms (Recalled from RN notes): No MS Symptoms (Recalled from RN notes): No Functional Status (Recalled from RN notes): wnl History of Present Illness Provider Complaint: She was diagnosed with an abscessed tooth and started on augmentin 2 days ago. She states that the augmentin is making her feel bad and would like to have the antibiotic switched. Related Data Home Medications Medication Instructions Recorded Confirmed omeprazole 10 mg capsule,delayed 10 mg PO DAILY GERD 08/26/21 08/14/22 release clindamycin HCl 300 mg capsule 300 mg PO Q8H TOOTH INFECTION 08/14/22 08/14/22 Allergies Allergy/AdvReac Type Severity Reaction Status Date / Time ceftriaxone [From Rocephin] Allergy Verified 01/19/22 10:29 Worker's Comp Is this a Worker's Comp case?: No PFSH PFSH Disclaimer: The information contained in this section may have been updated after the patient was seen, as this information can be updated by other users. 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 current occupational exposures/hazards: No caffeine: Yes ROS Obtained: Yes All systems reviewed & no additional complaints except as documented Constitutional Constitutional: Denies chills and Denies fever(s) Eyes Eyes: Denies eye discharge ENT Ears, Nose, Mouth, and Throat: Denies dizziness, Denies otalgia and Denies sore throat Cardiovascular Cardiovascular: Denies chest pain Respiratory Respiratory: Denies shortness of breath, Denies chest congestion, Denies cough, Denies stridor and Denies wheezing Gastrointestinal Gastrointestingal: Denies nausea or vomiting Musculoskeletal Musculoskeletal: Reports system reviewed and no additional complaints, except as documented and
[2022-08-12 17:20] VITALS: BP 141/96; PULSE 140; RESP 20; TEMP 37.8; O2SAT 96
== END 2022-08-12 17:21 | disposition home or self-care (01) ==
PROVIDERS: Emergency Provider Nurse Practitioner Family; PCP Family Medicine
DX: K04.7 Periapical abscess without sinus (principal); R50.9 Fever, unspecified; F17.210 Nicotine dependence, cigarettes, uncomplicated
CPT/HCPCS: 99212; 99213; G0463

== ENCOUNTER 2022-08-14 00:24 | Observation (INO) | payer OTHER, SELFPAY ==
[2022-08-14] VITALS (16 sets, daily range): BP systolic 111–137; BP diastolic 73–96; PULSE 97–122; RESP 16–24; TEMP 36.5–37.8; O2SAT 93–98; BMI 58.6; BMI 61.7
--- NOTE | 2022-08-14 00:29 | XR_ITS ---
PROCEDURE INFORMATION: Exam: XR Chest Exam date and time: 08/14/2022 12:56 AM Age: 31 years old Clinical indication: Pain; Chest pressure; Additional info: Chest pain TECHNIQUE: Imaging protocol: Radiologic exam of the chest. Views: 2 views. COMPARISON: CR XR CHEST 2V 05/29/2022 6:42 AM FINDINGS: Lungs: Bibasilar pulmonary consolidations strongly favor pneumonia. Pleural spaces: Unremarkable. No pleural effusion. No pneumothorax. Heart/Mediastinum: Unremarkable. No cardiomegaly. Bones/joints: Unremarkable. IMPRESSION: Bibasilar pulmonary consolidations strongly favor pneumonia. Radiographic surveillance is recommended to document resolution.
--- NOTE | 2022-08-14 00:29 | CT_ITS ---
PROCEDURE INFORMATION: Exam: CT Neck With Contrast Exam date and time: 08/14/2022 1:22 AM Age: 31 years old Clinical indication: Neck pain; Additional info: R/O tooth abscess TECHNIQUE: Imaging protocol: Computed tomography of the neck with contrast. Radiation optimization: All CT scans at this facility use at least one of these dose optimization techniques: automated exposure control; mA and/or kV adjustment per patient size (includes targeted exams where dose is matched to clinical indication); or iterative reconstruction. Contrast material: ISOVUE; Contrast volume: 75 ml; Contrast route: IV; REPORTING DATA: Count of CT and Cardiac NM exams in prior 12 months: This patient has received 5 known CTs and 0 known cardiac nuclear medicine studies in the 12 months prior to the current study. COMPARISON: CT CERVICAL SPINE WO CON 04/09/2021 20:59 FINDINGS: Dental: No significant dental cavity, periapical lucency, or other finding to correlate with odontogenic infection. Pharynx: Unremarkable. No significant tonsillar enlargement. Larynx: Unremarkable. Epiglottis is normal. Prevertebral and retropharyngeal spaces: Unremarkable. Salivary glands: Normal. Glands are normal in size. Thyroid: Normal. No enlarged or calcified nodules. Lymph nodes: Unremarkable. No lymphadenopathy. Trachea: Visualized trachea is unremarkable. Lungs: Unremarkable as visualized. Bones/joints: Unremarkable. No acute fracture. Soft tissues: Unremarkable. No significant soft tissue swelling. IMPRESSION: No significant dental cavity, periapical lucency, or other finding to correlate with odontogenic infection.
--- NOTE | 2022-08-14 00:29 | CT_ITS ---
PROCEDURE INFORMATION: Exam: CTA Chest With Contrast Exam date and time: 08/14/2022 1:14 AM Age: 31 years old Clinical indication: Pain; Chest pressure; Additional info: Chest and back pain TECHNIQUE: Imaging protocol: Computed tomographic angiography of the chest with contrast. Exam focused on the arteries. 3D rendering (Not supervised by radiologist): MIP and/or 3D reconstructed images were created by the technologist. Radiation optimization: All CT scans at this facility use at least one of these dose optimization techniques: automated exposure control; mA and/or kV adjustment per patient size (includes targeted exams where dose is matched to clinical indication); or iterative reconstruction. Contrast material: ISOVUE; Contrast volume: 70 ml; Contrast route: INTRAVENOUS (IV); REPORTING DATA: Count of CT and Cardiac NM exams in prior 12 months: This patient has received 5 known CTs and 0 known cardiac nuclear medicine studies in the 12 months prior to the current study. COMPARISON: CR XR CHEST 2V 08/14/2022 12:56 AM FINDINGS: Pulmonary arteries: The pulmonary artery is enlarged, suspicious for chronic pulmonary artery hypertension. Pulmonary artery evaluation of good technical quality with no pulmonary artery embolism identified. Aorta: No thoracic aortic aneurysm, dissection or other acute thoracic aortic injury. Lungs: See Pleural spaces finding. Pleural spaces: Multifocal consolidative changes in both lower lobes, most dense in the posterior left costophrenic angle, consistent with pneumonia. Heart: Unremarkable. No cardiomegaly. No pericardial effusion. Lymph nodes: Nonspecific prominent hilar lymph nodes. Nonspecific prominent lymph nodes in the deep drainage pattern of the liver are most likely reactive. Liver: Suspect hepatic steatosis. Gallbladder and bile ducts: Cholelithiasis is present without findings to favor cholecystitis. No gallbladder wall thickening or pericholecystic fluid collection. Bones/joints: Unremarkable. No acute fracture. Soft tissues: Unremarkable. IMPRESSION: 1. No pulmonary artery embolism identified. 2. No thoracic aortic aneurysm, dissection or other acute thoracic aortic injury. 3. Multifocal consolidative changes in both lower lobes, most dense in the posterior left costophrenic angle, consistent with pneumonia. Radiographic surveillance is recommended to document resolution. 4. The pulmonary artery is enlarged, suspicious for chronic pulmonary artery hypertension.
--- NOTE | 2022-08-14 00:29 | CT_ITS ---
PROCEDURE INFORMATION: Exam: CT Maxillofacial With Contrast Exam date and time: 08/14/2022 1:25 AM Age: 31 years old Clinical indication: Jaw pain; Additional info: R/O tooth abscess left side TECHNIQUE: Imaging protocol: Computed tomography of the face with contrast. Radiation optimization: All CT scans at this facility use at least one of these dose optimization techniques: automated exposure control; mA and/or kV adjustment per patient size (includes targeted exams where dose is matched to clinical indication); or iterative reconstruction. Contrast material: ISOVUE; Contrast volume: 75 ml; Contrast route: IV; REPORTING DATA: Count of CT and Cardiac NM exams in prior 12 months: This patient has received 5 known CTs and 0 known cardiac nuclear medicine studies in the 12 months prior to the current study. COMPARISON: CT HEAD/BRAIN WO CON 04/09/2021 20:59 FINDINGS: Orbital cavities: Orbits are normal. Globes are unremarkable. Bones/joints: No acute fracture. Paranasal sinuses: Normal. No air-fluid levels. Soft tissues: Unremarkable. Dental: No significant dental cavity, periapical lucency, or other finding to correlate with odontogenic infection. IMPRESSION: No significant dental cavity, periapical lucency, or other finding to correlate with odontogenic infection.
--- NOTE | 2022-08-14 00:29 | ECG_ITS ---
APPROVED REPORT Exam: Resting ECG HR:112 bpm ECG Measurements Heart Rate 112 AXES FL 144 P 64 QRSd 77 QRS 72 QT 304 T 66 QTc 370 Conclusion SINUS TACHYCARDIA ABNORMAL RHYTHM ECG UNCONFIRMED REPORT Electronically signed by : Mega Jaramillo MD 08/14/2022 13:51:46
[2022-08-14 00:41] LABS: Albumin Level 3.8 g/dl (3.5-5.0); Albumin/Globulin Ratio 1.2 (1.1-1.8); Anion Gap 15.6 mEq/L (5-15); Blood Urea Nitrogen 12 mg/dl (7-17); Carbon Dioxide 26 mmol/L (22.0-30.0); Chloride 102 mmol/L (98-107); Creatinine Clearance Estimated 85 mL/min (50-200); Estimated Glomerular Filt Rate 99 ml/min (>60); GFR (African American) 120 ML/MIN (>60); Globulin 3.3 g/dL (1.3-3.2); Glucose 117 mg/dl (74-100); Potassium 3.6 mmoL/L (3.5-5.1); Sodium 140 mmol/L (136-145); Total Protein,Serum 7.1 g/dl (6.3-8.2)
[2022-08-14 00:42] LABS: Alanine Aminotransferase 36 U/L (12-78); Alkaline Phosphatase 107 U/L (38-126); Aspartate Amino Transferase 35 U/L (14-36); Bilirubin,Total 0.7 mg/dl (0.2-1.3); Calcium 8.8 mg/dl (8.4-10.2)
[2022-08-14 00:49] LABS: Basophils % 0.2 % (0.1-2.0); Eosinophils # 0.1 K/mm3 (0.0-0.4); Eosinophils % 0.9 % (0.1-12.0); Hemoglobin 13.5 g/dL (12.2-16.2); Lymphocytes # 1.6 K/mm3 (0.7-4.5); Lymphocytes % 11.1 % (10-50); Mean Corpuscular HGB Conc 33.8 g/dL (31.8-35.4); Mean Corpuscular Hemoglobin 29.6 pg (27.0-31.2); Mean Corpuscular Volume 87.5 fl (81-99); Monocytes # 0.7 K/mm3 (0.1-1.0); Monocytes % 4.9 % (1.7-9.3); Neutrophils # 12.3 K/mm3 (1.8-7.8); Platelet Count 245 K/mm3 (142-424); Red Blood Count 4.57 M/mm3 (4.20-5.40); Red Cell Distribution Width 14.2 % (11.5-17.5); White Blood Count 14.8 K/mm3 (4.8-10.8)
--- NOTE | 2022-08-14 00:55 | CT_ITS ---
PROCEDURE INFORMATION: Exam: CT Abdomen And Pelvis With Contrast Exam date and time: 08/14/2022 1:14 AM Age: 31 years old Clinical indication: Abdominal pain; Additional info: Cp and abdominal pain TECHNIQUE: Imaging protocol: Computed tomography of the abdomen and pelvis with contrast. Radiation optimization: All CT scans at this facility use at least one of these dose optimization techniques: automated exposure control; mA and/or kV adjustment per patient size (includes targeted exams where dose is matched to clinical indication); or iterative reconstruction. Contrast material: ISOVUE; Contrast volume: 70 ml; Contrast route: IV; REPORTING DATA: Count of CT and Cardiac NM exams in prior 12 months: This patient has received 5 known CTs and 0 known cardiac nuclear medicine studies in the 12 months prior to the current study. COMPARISON: CT ABDOMEN PELVIS W CON 07/05/2022 2:45 AM FINDINGS: Lungs: Bilateral lower lobe consolidation is most dense in the posterior left costophrenic angle. Liver: Suspect hepatic steatosis. Hepatomegaly. Gallbladder and bile ducts: Cholelithiasis is present without findings to favor cholecystitis. No gallbladder wall thickening or pericholecystic fluid collection. Pancreas: Normal. No ductal dilation. Spleen: Normal. No splenomegaly. Adrenal glands: Normal. No mass. Kidneys and ureters: Normal. No hydronephrosis. Stomach and bowel: Unremarkable. No obstruction. No mucosal thickening. Appendix: Normal appendix. Intraperitoneal space: Unremarkable. No free air. No significant fluid collection. Vasculature: Unremarkable. No abdominal aortic aneurysm. Lymph nodes: Nonspecific prominent lymph nodes in the deep drainage pattern of the liver are most likely reactive. Urinary bladder: Unremarkable as visualized. Reproductive: Unremarkable as visualized. Bones/joints: Unremarkable. No acute fracture. Soft tissues: Unremarkable. IMPRESSION: 1. Bilateral lower lobe consolidation is most dense in the posterior left costophrenic angle. Radiographic surveillance is recommended to document resolution. 2. Normal appendix. 3. No acute intra-abdominal process identified. 4. Hepatomegaly with suspected hepatic steatosis.
[2022-08-14 00:58] LABS: Troponin I < 0.01 ng/ml (0.00-0.034)
[2022-08-14 00:59] LABS: HCG Qualitative, Serum Negative (Negative); T4 (Thyroxine) 9.4 ug/dl (5.53-11.0)
[2022-08-14 01:10] LABS: Amylase 51 U/L (30-110); Lipase 18 U/L (23-300)
[2022-08-14 01:12] LABS: Thyroid Stimulating Hormone 2.46 uIU/mL (0.465-4.68)
[2022-08-14 01:15] LABS: Coronavirus 19, PCR Not Detected (NotDetected); Influenza A, PCR Not Detected (NotDetected); Influenza B, PCR Not Detected (NotDetected)
--- NOTE | 2022-08-14 01:16 | PC.NURSE ---
Addendum entered by Cassy Schneider RN 08/14/22 01:17: Note entered on incorrect patient. Original Note: Critical potassium of 3.0 called by lab. notified.
[2022-08-14 01:30] LABS: Procalcitonin 0.217 ng/mL (0.0-2.0)
[2022-08-14 01:46] LABS: Erythrocyte Sedimentation Rate 75 mm/hr (0-20)
--- NOTE | 2022-08-14 02:56 | HMH.EDCP ---
Discharge Plan Disposition Patient Disposition: Admitted Chief Complaint: Chest Pain Clinical Impressions Clinical Impression: CAP (community acquired pneumonia), SIRS (systemic inflammatory response syndrome), Obesity Discharge ED Provider: Olamide (DARYN)Aaron Chest Pain HPI General Chief Complaint: Chest Pain Stated Complaint: tooth,jaw,chest pain Time Seen by Provider: 08/14/22 02:00 Mode of Arrival: Family Vehicle Source of Information: Patient and Medical Record Limitations: No Limitations Description of Symptoms (Recalled from ER Triage Doc. by RN): 31 yo female presents with back and shoulder pain with breathing; tooth and jaw pain that forced her to seek tx at [facility] twice during the last 48 hours; placed initially on augmentin, then began clindamycin for possible tooth infection; pt is alert, oriented. states pain increases with breathing. 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 patient also states she has chills History of Present Illness HPI narrative: pt with [facility] visits x 2 for reported dental pain - presents to the ed this am with cough and sob and chest pain with pleuritic chest pain MD complaint: chest pain indicative of cardiac Onset (ago): hour(s) Duration: intermittent Activity at onset: during rest Pain location: left chest Severity: moderate Associated symptoms: cough Risk Factors for CAD: Family Hx of CAD Treatments prior to or on arrival for Cardiac Chest Pain: none AMANDA Score for Non-Stemi Age of Patient: <30 years old Heart Rate: 110-149 bpm Systolic Blood Pressure: 120-139 mmhg Serum Creatinine: 0.40-0.79 mg/dl CHF [place] Class: I-No CHF Other Risk Factors: None Non-Stemi Risk Score: 62 Risk Stratification: 1-108 = Low Risk Related Data On Oral Contraceptives: No Home Medications Medication Instructions Recorded Confirmed omeprazole 10 mg capsule,delayed 10 mg PO DAILY GERD 08/26/21 08/14/22 release clindamycin HCl 300 mg capsule 300 mg PO Q8H tooth 08/14/22 08/14/22 Allergies Allergy/AdvReac Type Severity Reaction Status Date / Time ceftriaxone [From Rocephin] Allergy Verified 01/19/22 10:29 [facility] Disclaimer: The information contained in this section may have been updated after the patient was seen, as this information can be updated by other users. 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 current occupational exposures/hazards: No caffeine: Yes ROS Obtained: Yes All systems reviewed & no additional complaints except as documented Physical Exam General General appearance: alert and obese Head Head exam: normocephalic Eye Eye exam: Present PERRL and EOMI ENT ENT exam: Present mucous membranes moist Neck Neck exam: Present trachea midline Respiratory Respiratory exam: Present other (dec bs bilat ); Absent respiratory distress Cardiovascular Cardiovascular exam: Present tachycardia and +S3 Abdominal Exam Abdominal exam: Present soft; Absent tenderness Extremities Exam Extremities exam: Present full ROM Neurological Exam Neurological exam: Present alert, oriented X3 and CN II-XII intact; Absent motor sensory deficit Psychiatric Psychiatric exam: Present normal affect Skin Skin exam: Absent rash Medical Decision Making Medical Records Medical records reviewed: Yes I reviewed the patient's medical records. Herbert Inquiry Pt receiving controlled substance: No Vital Signs: 08/14/22 00:25 08/14/22 01:00 08/14/22 02:21 Temperature 98.7 F Temperature Source Oral Pulse Rate 114 H 119 H Pulse Rate [Right Brachial] 117 H Respiratory Rate 24 Blood Pressure 127/96 H 111/74 Blood Pressure [Right Arm
--- NOTE | 2022-08-14 03:57 | PC.NURSE ---
RECEIVED PHONE REPORT FROM ED NURSE STIVEN Josue RN. 31 YO FEMALE WITH BILAT PNEUMONIS TO BE ADMITTED TO ROOM 208. MAY COME UP IN STRETCHER.
--- NOTE | 2022-08-14 04:05 | PC.NURSE ---
PATIENT ARRIVED TO THE FLOOR AT 0400 VIA STRETCHER ACCOMPANIED BY SIG. CANDELARIO. PLACED IN ROOM 208.
--- NOTE | 2022-08-14 04:41 | EXP.HP ---
History of Present Illness *Admission Date: 08/14/22 *Reason for visit:: chest pain *History of present illness: Ms. Gay is a 31 year old morbidly obese female who presented to the ER with complaints of back and shoulder pain, shortness of breath after taking clindamycin. She also complained of left tooth/jaw pain and chills. Work-up in the ER, patient noted to be tachycardic at 120 bpm. CBC revealed increasing leukocytosis and sed rate and CRP. Chemistry was unremarkable. EKG demonstrated ST without acute changes. CTA chest was negative for PE, but demonstrated multifocal consolidative changes in both lower lobes, most dense in the posterior left costophrenic angle, consistent with pneumonia. CT face and soft tissue of neck were unremarkable. Patient was given IV Levaquin. Discussion with Dr. Quiñonez in ER, agree with patient admission for treatment of pneumonia with early sepsis. [facility] Disclaimer: The information contained in this section may have been updated after the patient was seen, as this information can be updated by other users. 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 *Respiratory Respiratory: Reports dyspnea *Gastrointestinal Gastrointestinal: Reports system reviewed and no additional complaints, except as documented *Genitourinary Genitourinary: Reports system reviewed and no additional complaints, except as documented *Musculoskeletal Musculoskeletal: Reports system reviewed and no additional complaints, except as documented Integumentary/Breasts Skin/Breast: Reports system reviewed and no additional complaints, except as documented *Neurologic Neurologic: Reports system reviewed and no additional complaints, except as documented Psychiatric Psychiatric: Reports system reviewed and no additional complaints, except as documented Endocrine Endocrine: Reports system reviewed and no additional complaints, except as documented Hematologic/Lymphatic Hematologic/Lymphatic: Reports system reviewed and no additional complaints, except as documented Allergic/Immunologic Allergic/Immunologic: Reports system reviewed and no additional complaints, except as documented Meds Home Medications and Allergies Home Medications Medication Instructions Recorded Confirmed Type omeprazole 10 mg capsule,delayed 10 mg PO DAILY GERD 08/26/21 08/14/22 History release clindamycin HCl 300 mg capsule 300 mg PO Q8H TOOTH INFECTION 08/14/22 08/14/22 History New Prescriptions to Start Prescriptions: Allergies Allergy/AdvReac Type Severity Reaction Status Date / Time ceftriaxone [From Rocephin] Allergy Verified 01/19/22 10:29 Exam Data for Last 24 hours Vital signs and Labs for Last 24 Hours: Temp Pulse Resp BP Pulse Ox 98 F 120 H 16 123/76 96 08/14/22 04:03 08/14/22 04:03 08/14/22 04:03 08/14/22 04:03 08/14/22 03:00 Laboratory Results - last 24 hr 08/14/22 00:26: WBC 14.8 H, RBC 4.57, Hgb
[2022-08-14 04:51] LABS: Troponin I < 0.01 ng/ml (0.00-0.034)
--- NOTE | 2022-08-14 06:24 | PC.NURSE ---
RESTING QUIETLY IN BED WITH SIGNIFICANT OTHER AT BEDSIDE. NO C/O PAIN OR DISCOMFORT SINCE ADMISSION. 02 SAT 96% ON ROOM AIR. REPORTS SCANT AMTS YELLOW SPUTUM. INCENTIVE SPIROMETER ISSUED WITH INSTRUCTIONS. PATIENT VERBALIZES UNDERSTANDING.
[2022-08-14 07:22] LABS: Basophils % 0.1 % (0.1-2.0); Eosinophils % 0.1 % (0.1-12.0); Hematocrit 40.3 % (37.0-47.0); Hemoglobin 13.3 g/dL (12.2-16.2); Lymphocytes # 1.1 K/mm3 (0.7-4.5); Mean Corpuscular HGB Conc 32.9 g/dL (31.8-35.4); Mean Corpuscular Hemoglobin 29.3 pg (27.0-31.2); Mean Platelet Volume 8.1 fl (7.4-10.4); Monocytes # 0.5 K/mm3 (0.1-1.0); Monocytes % 3.6 % (1.7-9.3); Neutrophils # 13.7 K/mm3 (1.8-7.8); Neutrophils % 89.3 % (37.0-80.0); Platelet Count 250 K/mm3 (142-424); Red Blood Count 4.53 M/mm3 (4.20-5.40); Red Cell Distribution Width 14.3 % (11.5-17.5); White Blood Count 15.3 K/mm3 (4.8-10.8)
[2022-08-14 07:25] LABS: Chloride 105 mmol/L (98-107); MANUAL DIFFERENTIAL MANUAL DIFFERENTIAL (MANUAL DIFF); Potassium 4.1 mmoL/L (3.5-5.1); Sodium 138 mmol/L (136-145)
[2022-08-14 07:27] LABS: Alanine Aminotransferase 32 U/L (12-78); Alkaline Phosphatase 108 U/L (38-126); Aspartate Amino Transferase 28 U/L (14-36); Bilirubin,Total 0.4 mg/dl (0.2-1.3); Blood Urea Nitrogen 11 mg/dl (7-17); Creatinine Clearance Estimated 81 mL/min (50-200); Estimated Glomerular Filt Rate 99 ml/min (>60); GFR (African American) 120 ML/MIN (>60)
[2022-08-14 07:28] LABS: Albumin Level 3.6 g/dl (3.5-5.0); Albumin/Globulin Ratio 1.2 (1.1-1.8); Anion Gap 15.1 mEq/L (5-15); Calcium 8.3 mg/dl (8.4-10.2); Carbon Dioxide 22 mmol/L (22.0-30.0); Globulin 3.1 g/dL (1.3-3.2); Glucose 130 mg/dl (74-100); Total Protein,Serum 6.7 g/dl (6.3-8.2)
[2022-08-14 07:39] LABS: Troponin I < 0.01 ng/ml (0.00-0.034)
[2022-08-14 07:41] LABS: Phosphorous 1.6 mg/dl (2.5-4.5)
--- NOTE | 2022-08-14 07:42 | PC.NURSE ---
Dr. Hardy notified of critical phosphorus.
[2022-08-14 08:16] LABS: Lymphocytes % 10 % (10-50); Monocytes % 1 % (2-9); Neutrophils % 89 % (42-76); Platelet Estimate Normal; RBC Morphology Normal; Total Cells Counted 100
--- NOTE | 2022-08-14 11:49 | EXP.PN ---
Subjective *Date: 08/14/22 *Time: 11:59 Interval history: Patient on room air without use of accessory muscles ambulating from restroom at time of evaluation with Dr. Hardy. Patient's significant other in the room during evaluation. Denies shortness of breath. States she feels better after breathing treatment during hospitalization. Exam Data for Last 24 hours Vital signs and Labs for Last 24 Hours: Temp Pulse Resp BP Pulse Ox 97.7 F 99 H 18 134/83 95 08/14/22 10:59 08/14/22 11:04 08/14/22 10:59 08/14/22 10:59 08/14/22 10:59 Laboratory Results - last 24 hr 08/14/22 00:26: WBC 14.8 H, RBC 4.57, Hgb 13.5, Hct 40.0, MCV 87.5, MCH 29.6, MCHC 33.8, RDW 14.2, Plt Count 245, MPV 8.0, Neut % (Auto) 83.0 H, Lymph % (Auto) 11.1, [place] % (Auto) 4.9, Eos % (Auto) 0.9, Baso % (Auto) 0.2, Neut # (Auto) 12.3 H, Lymph # (Auto) 1.6, [place] # (Auto) 0.7, Eos # (Auto) 0.1, Baso # (Auto) 0.0 08/14/22 00:26: Sodium 140, Potassium 3.6, Chloride 102, Carbon Dioxide 26, Anion Gap 15.6 H, BUN 12, Creatinine 0.70, Estimated Creat Clear 85, Estimated GFR 99, Est GFR ( Amer) 120, Glucose 117 H, Calcium 8.8, Total Bilirubin 0.7, AST 35, ALT 36, Alkaline Phosphatase 107, Troponin I < 0.01, Total Protein 7.1, Albumin 3.8, Globulin 3.3 H, Albumin/Globulin Ratio 1.2, TSH 2.46, Thyroxine (T4) 9.4 08/14/22 00:26: Serum HCG, Qual Negative 08/14/22 00:26: ESR 75 H 08/14/22 00:26: C-Reactive Protein 134.0 H, Amylase 51, Lipase 18 L, Procalcitonin 0.217 08/14/22 00:26: SARS-CoV-2 (PCR) Not detected, Influenza A Untype (PCR) Not detected, Influenza Type B (PCR) Not detected 08/14/22 02:38: Lactate 1.0 08/14/22 04:15: Troponin I < 0.01 08/14/22 06:45: Troponin I < 0.01 08/14/22 06:45: WBC 15.3 H, RBC 4.53, Hgb 13.3, Hct 40.3, MCV 89.0, MCH 29.3, MCHC 32.9, RDW 14.3, Plt Count 250, MPV 8.1, Neut % (Auto) 89.3 H, Lymph % (Auto) 7.0 L, [place] % (Auto) 3.6, Eos % (Auto) 0.1, Baso % (Auto) 0.1, Neut # (Auto) 13.7 H, Lymph # (Auto) 1.1, [place] # (Auto) 0.5, Eos # (Auto) 0.0, Baso # (Auto) 0.0, Total Counted 100, Neutrophils % (Manual) 89 H, Lymphocytes % (Manual) 10, Monocytes % (Manual) 1 L, Platelet Estimate Normal, RBC Morphology Normal 08/14/22 06:45: Sodium 138, Potassium 4.1, Chloride 105, Carbon Dioxide 22, Anion Gap 15.1 H, BUN 11, Creatinine 0.70, Estimated Creat Clear 81, Estimated GFR 99, Est GFR ( Amer) 120, Glucose 130 H, Calcium 8.3 L, Phosphorus 1.6 L, Magnesium 2.0, Total Bilirubin 0.4, AST 28, ALT 32, Alkaline Phosphatase 108, Total Protein 6.7, Albumin 3.6, Globulin 3.1, Albumin/Globulin Ratio 1.2 I & O for Last 24 hours: Intake & Output 08/11/22 08/12/22 08/13/22 08/14/22 23:59 23:59 23:59 23:59 Intake Total 290 / 290 Output Total 200 / 200 Balance 90 / 90 Weight 142.519 kg *Routine HEENT Exam Head: Present normocephalic and atraumatic Eye: Present EOMI and normal accommodation ENT: Present mucous membranes moist *Routine Neck Exam Neck: Present supple and full ROM *Routine Respiratory Exam Respiratory: Present decreased breath sounds and diminished air movement; Absent accessory muscle use *Routine Cardiovascular Exam Cardiovascular: Present Normal S1, Normal S2 and tachycardia *Routine Abdominal Exam Abdominal: Present soft and normoactive bowel sounds *Routine Rectal Exam Comments: exam deferred *Routine Exam Comments: exam deferred *Routine Extremities Exam Extremities: Present full ROM Routine Back/Spine/Pelvis Exam Back/Spine: Present full ROM *Routine Skin Exam Skin: Present intact and normal turgor *Routine Neurological Exam Neurological: Present alert, oriented X3 and normal tone Assessment and Plan *Assessment and plan (1) CAP (community acquired pneumonia): Status: Acute Category: Medical Code(s): J18.9 - Pneumonia, unspecified organism (2) Dental abscess: Status: Acute Category: Medical Code(s): K04.7 - Periapical abscess without sinus (3) GERD (gastroesoph
--- NOTE | 2022-08-14 18:28 | PC.NURSE ---
Sodium phosphate infiltrated. Pharmacy and doctor notified. Hylauronase injections given. Some swelling noted but no redness. Patient denies pain. New IV obtained. VS stable, patient remained on room air. lung sounds clear.
--- NOTE | 2022-08-14 19:08 | PC.NURSE ---
patient complained of heart palpitations at 1850. Pulse on datascope read 125, manual pulse 122 and uniform. Patient had just received duo-neb treatment minutes prior. Respiratory notified, ekg ordered.
--- NOTE | 2022-08-14 19:15 | ECG_ITS ---
APPROVED REPORT Exam: Resting ECG HR:118 bpm ECG Measurements Heart Rate 118 AXES OH 192 P 62 QRSd 91 QRS 17 QT 317 T 29 QTc 387 Conclusion SINUS TACHYCARDIA POSSIBLE LEFT ATRIAL ENLARGEMENT [-0.1mV P-WAVE IN V1/V2] LOW QRS VOLTAGE IN PRECORDIAL LEADS [QRS DEFLECTION < 1.0 mV IN CHEST LEADS] ABNORMAL RHYTHM ECG UNCONFIRMED REPORT Electronically signed by : Mega Jaramillo MD 08/15/2022 07:47:33
[2022-08-15] VITALS (7 sets, daily range): BP systolic 121–132; BP diastolic 77–86; PULSE 80–111; RESP 20; TEMP 36.6–36.7; O2SAT 96; BMI 62.3
--- NOTE | 2022-08-15 02:03 | PC.NURSE ---
PATIENT HAD ADVERSE REACTION TO DUONEB EARLIER ON DAYSHIFT. HR JUMPED UP IN 120s. DUONEBS HAD BEEN DISCONTINUED. PATIENT NOW REQUESTING A NEB TREATMENT. NEXT XOPENEX NEB DUE AT 0600. SADIQ NAZARIO NOTIFIED. TO PLACE A NEB TREATMENT FOR PATIENT.
--- NOTE | 2022-08-15 05:04 | PC.NURSE ---
0500 LAB REPORTS ANEROBIC BLOOD CULTURE POSITIVE FOR STAPHLOCOCCUS EPIDERMIDIS AND GRAM POSITICE COCCI IN CLUSTERS. SADIQ NAZARIO NOTIFIED.
[2022-08-15 06:18] LABS: Basophils % 0.1 % (0.1-2.0); Eosinophils % 0.1 % (0.1-12.0); Red Cell Distribution Width 14.2 % (11.5-17.5)
[2022-08-15 06:22] LABS: Chloride 106 mmol/L (98-107); Sodium 140 mmol/L (136-145)
[2022-08-15 06:25] LABS: Blood Urea Nitrogen 12 mg/dl (7-17); Calcium 8.3 mg/dl (8.4-10.2); Carbon Dioxide 25 mmol/L (22.0-30.0); Creatinine Clearance Estimated 94 mL/min (50-200); Estimated Glomerular Filt Rate 118 ml/min (>60); GFR (African American) 143 ML/MIN (>60); Glucose 128 mg/dl (74-100); Magnesium 2.2 mg/dl (1.6-2.3)
[2022-08-15 06:29] LABS: Hematocrit 35.8 % (37.0-47.0); Lymphocytes # 1.6 K/mm3 (0.7-4.5); Lymphocytes % 9.3 % (10-50); Mean Corpuscular HGB Conc 32.2 g/dL (31.8-35.4); Mean Corpuscular Hemoglobin 28.2 pg (27.0-31.2); Mean Corpuscular Volume 87.8 fl (81-99); Monocytes # 0.9 K/mm3 (0.1-1.0); Monocytes % 5.4 % (1.7-9.3); Neutrophils # 14.8 K/mm3 (1.8-7.8); Neutrophils % 85.2 % (37.0-80.0); Platelet Count 305 K/mm3 (142-424); Red Blood Count 4.08 M/mm3 (4.20-5.40); White Blood Count 17.4 K/mm3 (4.8-10.8)
[2022-08-15 06:32] LABS: MANUAL DIFFERENTIAL MANUAL DIFFERENTIAL (MANUAL DIFF)
--- NOTE | 2022-08-15 07:45 | EXP.DC.SUM ---
General Admission date:: 08/14/22 Discharge date: 08/15/22 HPI HPI HPI: Ms. Gay is a 31 year old morbidly obese female who presented to the ER with complaints of back and shoulder pain, shortness of breath after taking clindamycin. She also complained of left tooth/jaw pain and chills. Work-up in the ER, patient noted to be tachycardic at 120 bpm. CBC revealed increasing leukocytosis and sed rate and CRP. Chemistry was unremarkable. EKG demonstrated ST without acute changes. CTA chest was negative for PE, but demonstrated multifocal consolidative changes in both lower lobes, most dense in the posterior left costophrenic angle, consistent with pneumonia. CT face and soft tissue of neck were unremarkable. Patient was given IV Levaquin. Discussion with Dr. Quiñonez in ER, agree with patient admission for treatment of pneumonia with early sepsis. Hospital Course Hospital Course Hospital Course: Patient presented with shortness of breath and diagnosed with community-acquired pneumonia. Patient also diagnosed with persistent dental abscess treated as outpatient with clindamycin. Patient continued on clindamycin throughout hospitalization. Patient started on IV Levaquin, and gradually improved throughout hospitalization. CTA chest done at time of admission showed no pulmonary embolus, but signs of bibasilar infiltrates. Lactic acid normal throughout hospitalization. Patient remained on room air throughout hospitalization. Patient's phosphorus level found to be low, and patient given 15 mmol IV sodium phosphate x1 via IV piggyback. Unfortunately, patient's IV infiltrated during last portion of IV sodium phosphate treatment, and patient subsequently administered hyaluronic acid prophylactically by Dr. Hardy to prevent skin necrosis. Patient then given 250 mg tablet p.o. potassium phosphate x1 by Dr. Hardy to complete phosphorus replacement. Patient was tachycardic at time of hospital presentation, with EKG showing sinus tachycardia without signs or symptoms of acute coronary syndrome. Patient's tachycardia dramatically improved after receiving maintenance IV fluids during hospitalization. Patient had leukocytosis throughout hospitalization, but no other signs of early sepsis. In emergency room patient was given 125 mg IV Solu-Medrol x1, which is most likely etiology of patient's rising leukocytosis during hospitalization. Patient's left shift trended downward on IV Levaquin therapy during hospitalization. Given the beforementioned information, patient deemed appropriate for disposition 08/15/[address] Hardy, with outpatient follow-up with patient's PCP within 1 week of hospital discharge. Patient discharged on 7 additional days of p.o. Levaquin therapy. Patient also advised to continue clindamycin therapy as prescribed by dentist till dental abscess issues resolved. Incidentally, patient's admission blood culture 1 of 2 positive for Staph epidermidis thought to be skin contaminant which occurred during blood culture acquisition. Exam Data for Last 24 hours Vital signs and Labs for Last 24 Hours: Temp Pulse Resp BP Pulse Ox 98.1 F 87 20 121/77 96 08/15/22 04:00 08/15/22 06:18 08/15/22 04:00 08/15/22 04:00 08/15/22 04:00 Laboratory Results - last 24 hr 08/14/22 06:45: Total Counted 100, Neutrophils % (Manual) 89 H, Lymphocytes % (Manual) 10, Monocytes % (Manual) 1 L, Platelet Estimate Normal, RBC Morphology Normal 08/15/22 05:39: WBC 17.4 H, RBC 4.08 L, Hct 35.8 L, MCV 87.8, MCH 28.2, MCHC 32.2, RDW 14.2, Plt Count 305, MPV 8.0, Neut % (Auto) 85.2 H, Lymph % (Auto) 9.3 L, [place] % (Auto) 5.4, Eos % (Auto) 0.1, Baso % (Auto) 0.1, Neut # (Auto) 14.8 H, Lymph # (Auto) 1.6, [place] # (Auto) 0.9, Eos # (Auto) 0.0, Baso # (Auto) 0.0 08/15/22 05:39: Sodium 140, Potassium 4.0, Chloride 106, Carbon Dioxide 25, Anion Gap 13.0, BUN 12, Creatinine 0.60, Estimated Creat Clear 94, Estimated GFR 118, Est GFR ( Amer) 143, Glucose 128 H, Calcium 8.3 L,
[2022-08-15 07:51] LABS: Lymphocytes % 11 % (10-50); Monocytes % 9 % (2-9); Neutrophils % 80 % (42-76); Platelet Estimate Normal; RBC Morphology Normal; Total Cells Counted 100
[2022-08-15 08:56] LABS: Hemoglobin 11.5 g/dL (12.2-16.2)
--- NOTE | 2022-08-16 13:31 | CARE MANAGER ---
Spoke with patient related to hospital discharge. She states she has improved but is still not feeling the best. She denies questions or concerns. QUAN Pena
== END 2022-08-15 09:45 | disposition home or self-care (01) ==
LOC: ER 00:42 → 2ND 04:03
PROVIDERS: Nurse Practitioner; Admitting Provider Internal Medicine; Emergency Provider Emergency Medicine; PCP Family Medicine; Visit Provider Internal Medicine
DX: J18.9 Pneumonia, unspecified organism (principal); E66.01 Morbid (severe) obesity due to excess calories; Z68.44 Body mass index [BMI] 60.0-69.9, adult; K21.9 Gastro-esophageal reflux disease without esophagitis; F17.210 Nicotine dependence, cigarettes, uncomplicated; Z79.899 Other long term (current) drug therapy; K04.7 Periapical abscess without sinus
CPT/HCPCS: 36415; 70487; 70491; 71046; 71275; 74177; 80048; 80053; 82150; 83605; 83690; 83735; 84100; 84145; 84436; 84443; 84484; 84703; 85007; 85025; 85651; 86140; 87040; 87070; 87077; 87186; 87205; 87635; 87636; 93005; 94640; 99285; C9803; G0378; J1956; J3473; Q9967; U0003; U0005

== ENCOUNTER 2022-10-18 19:49 | Emergency (ER) | payer OTHER, SELFPAY ==
--- NOTE | 2022-10-18 19:52 | EXP.UTC ---
Discharge Plan Disposition Patient Disposition: Home, Self-Care Condition: Good Prescriptions Prescriptions: New methylprednisolone 4 mg Tablets,Dose Pack 4 mg PO DIRECTED Qty: 21 0RF levofloxacin [levofloxacin] 500 mg tablet 500 mg PO DAILY Qty: 7 0RF benzonatate [benzonatate] 100 mg capsule 100 mg PO TIDP PRN (Reason: Cough) Qty: 30 0RF No Action omeprazole 10 MG capsule,delayed release(DR/EC) 10 mg PO DAILY clindamycin HCl 300 mg capsule 300 mg PO Q8H levofloxacin 750 mg tablet 750 mg PO DAILY 7 Days Qty: 7 0RF Referrals Follow up/Referrals: Mega Reynolds MD [Primary Care Provider] - See instructions Activity Restrictions/Add. Instructions Additional Instructions/Restrictions: Drink plenty of fluids. Take tylenol for pain or fever. Take the medications as directed. Follow up with your regular doctor. GO TO THE ER FOR ANY WORSENING SYMPTOMS Clinical Impressions Clinical Impression: Bronchitis, Neck pain Instructions Patient Instructions: Acute Bronchitis, DI for Acute Bronchitis Discharge ED Provider: Jerry Weber [facility] General Stated complaint: stiffness in neck, heavyness when breathing Time Seen by Provider: 10/18/22 19:52 History of Present Illness Provider Complaint: she states that she began to feel bad yesterday. As today has went on, she has had chest congestion, sore throat, and malaise. She does have a history of getting pneumonia. Related Data Home Medications Medication Instructions Recorded Confirmed omeprazole 10 mg capsule,delayed 10 mg PO DAILY GERD 08/26/21 08/14/22 release clindamycin HCl 300 mg capsule 300 mg PO Q8H TOOTH INFECTION 08/14/22 08/14/22 Previous Rx's Medication Instructions Recorded levofloxacin 750 mg tablet 750 mg PO DAILY 7 days #7 tabs 08/15/22 benzonatate 100 mg capsule 100 mg PO TIDP PRN Cough #30 caps 10/18/22 levofloxacin 500 mg tablet 500 mg PO DAILY #7 tabs 10/18/22 methylprednisolone 4 mg tablets in 4 mg PO DIRECTED #21 tabs 10/18/22 a dose pack Allergies Allergy/AdvReac Type Severity Reaction Status Date / Time ceftriaxone [From Rocephin] Allergy Verified 01/19/22 10:29 [facility] Disclaimer: The information contained in this section may have been updated after the patient was seen, as this information can be updated by other users. 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 current occupational exposures/hazards: No caffeine: Yes ROS Obtained: Yes All systems reviewed & no additional complaints except as documented Constitutional Constitutional: Reports chills and Denies fever(s) Eyes Eyes: Denies eye discharge ENT Ears, Nose, Mouth, and Throat: Reports as per HPI Cardiovascular Cardiovascular: Denies chest pain Respiratory Respiratory: Denies chest congestion and Reports cough Gastrointestinal Gastrointestingal: Reports nausea; Denies abdominal pain, constipation, cramping, diarrhea or vomiting Musculoskeletal Musculoskeletal: Denies arthralgias Integumentary/Breasts Skin/Breast: Denies rash Neurologic Neurologic: Denies paresthesias Physical Exam General General appearance: alert and in no apparent distress Head Head exam: atraumatic, normocephalic and normal inspection Eye Eye exam: Present normal appe
[2022-10-18 19:55] VITALS: BP 148/93; PULSE 101; RESP 24; TEMP 36.7; O2SAT 98; BMI 61.5
[2022-10-18 20:13] VITALS: BP 148/93; PULSE 101; RESP 24; TEMP 36.7; O2SAT 98
== END 2022-10-18 20:17 | disposition home or self-care (01) ==
PROVIDERS: Emergency Provider Nurse Practitioner Family; PCP Family Medicine
DX: J20.9 Acute bronchitis, unspecified (principal); M54.2 Cervicalgia; R53.81 Other malaise; F17.210 Nicotine dependence, cigarettes, uncomplicated
CPT/HCPCS: 99212; 99214; G0463

== ENCOUNTER 2022-11-27 18:26 | Emergency (ER) | payer OTHER, SELFPAY ==
--- NOTE | 2022-11-27 18:29 | XR_ITS ---
PROCEDURE INFORMATION: Exam: XR Left Knee Exam date and time: 11/27/2022 6:27 PM Age: 31 years old Clinical indication: Pain; Knee; Left; Additional info: Fall TECHNIQUE: Imaging protocol: Radiologic exam of the left knee. Views: 3 views. COMPARISON: CR XR KNEE LT 3V 12/29/2021 9:03 PM FINDINGS: Bones/joints: There is a lucency through the proximal tibia which is best seen on the AP view and is concerning for a nondisplaced fracture extending to the tibial plateau. There is a small joint effusion. Soft tissues: Normal. IMPRESSION: There is a lucency through the proximal tibia which is best seen on the AP view and is concerning for a nondisplaced fracture extending to the tibial plateau.
[2022-11-27 18:40] VITALS: BP 139/89; PULSE 101; RESP 18; TEMP 36.5; O2SAT 98; BMI 62.6
--- NOTE | 2022-11-27 18:56 | EXP.UTC ---
Discharge Plan Disposition Patient Disposition: Home, Self-Care Condition: Good Referrals Follow up/Referrals: Eugene Ruth DO [Staff Physician] - See instructions (Call office for appointment) Mega Reynolds MD [Primary Care Provider] - See instructions Activity Restrictions/Add. Instructions Additional Instructions/Restrictions: *weight bearing as tolerated *RICE, Rest the extremity, Ice 15-20 minutes 3-4 times daily, Compress- wear the manolo wrap as discussed as much as possible to help reduce swelling and pain, Elevate the extremity when at rest *Manolo wrap is for support and help control swelling, use it except in the shower. Be sure that is not to tight but not to loose either *Elevate when resting? *Ibuprofen 600-800mg every 6-8 hours as needed for pain an inflammation. If need something more can take Tylenol in between doses of Ibuprofen to help Immediately follow up with your family doctor for new or worsening of symptoms, or no noticeable improvement over the next 3-5 days Clinical Impressions Clinical Impression: Fracture of tibial plateau Qualifiers: Encounter type: initial encounter Fracture type: closed Laterality: left Qualified Code(s): S82.142A - Displaced bicondylar fracture of left tibia, initial encounter for closed fracture Instructions Patient Instructions: How to Use Crutches, DI for Tibial Plateau Fracture Discharge ED Provider: Lillie Forrest [facility] General Stated complaint: AO 11/26 injured L knee Mode of Arrival: Ambulatory Source of Information: Patient Limitations: No Limitations Time Seen by Provider: 11/27/22 18:56 Description of Symptoms (Recalled from Triage Doc. by RN): PATIENT C/O LEFT KNEE PAIN. SHE STATES SHE BENT DOWN LAST NIGHT AND FELT IT POP HEENT Symptoms (Recalled from RN notes): No Resp Symptoms (Recalled from RN notes): No Skin Symptoms (Recalled from RN notes): No MS Symptoms (Recalled from RN notes): Yes Functional Status (Recalled from RN notes): WNL History of Present Illness Provider Complaint: Patient states that she feel a week or two ago and landed on her knees States that she seen her PCP for it and was doing ok but last night she was at her birthday democrat and she squatted down and felt like something popped in her left knee and since then she has been having pain when she tries to walk on it so today she came in when she was still having pain Related Data Allergies Allergy/AdvReac Type Severity Reaction Status Date / Time amoxicillin [From Augmentin] Allergy Verified 11/27/22 18:48 ceftriaxone [From Rocephin] Allergy Verified 01/19/22 10:29 clavulanic acid Allergy Verified 11/27/22 18:48 [From Augmentin] Worker's Comp Is this a Worker's Comp case?: No [facility] Disclaimer: The information contained in this section may have been updated after the patient was seen, as this information can be updated by other users. 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
[2022-11-27 19:12] VITALS: BP 139/89; PULSE 101; RESP 18; TEMP 36.5; O2SAT 98
== END 2022-11-27 20:13 | disposition home or self-care (01) ==
PROVIDERS: Emergency Provider Nurse Practitioner; PCP Family Medicine
DX: S82.142A Displaced bicondylar fracture of left tibia, initial encounter for closed fracture (principal); X50.1XXA Overexertion from prolonged static or awkward postures, initial encounter; F17.210 Nicotine dependence, cigarettes, uncomplicated
CPT/HCPCS: 73562; 99212; 99213; 99214; G0463

== ENCOUNTER → 2022-12-03 06:52 | Outpatient (CLI) | payer OTHER, SELFPAY ==
--- NOTE | 2022-12-03 06:53 | MR_ITS ---
PROCEDURE INFORMATION: Exam: MR Left Lower Extremity Joint Without Contrast, Knee Exam date and time: 12/03/2022 7:21 AM Age: 31 years old Clinical indication: Pain; Knee; Left; Patient HX: Unable to put full weight on leg. Glenvil pop; Additional info: Lt knee pain TECHNIQUE: Imaging protocol: Magnetic resonance imaging of the left lower extremity joint without contrast. Exam focused on the knee. COMPARISON: CR XR KNEE LT 3V 11/27/2022 6:27 PM FINDINGS: Bones/joints: A moderate small knee joint effusion is present. The marrow signal is normal. No fractures visible. There is patellar chondromalacia with focal high-grade fissuring in the medial facet. Low-grade fissuring is seen in the central trochlea. The patella is mildly laterally subluxed which may reflect chronic maltracking. Medial meniscus: Unremarkable. No tear. Lateral meniscus: Unremarkable. No tear. Anterior cruciate ligament: Intact anterior cruciate ligament. Posterior cruciate ligament: Intact posterior cruciate ligament. Medial capsule and supporting structures: Unremarkable. No tear. Lateral capsule and supporting structures: The lateral collateral ligament has a grade 2 sprain pattern. Extensor mechanism of knee: There is patellar tendinosis with distal tendinous laxity. Soft tissues: There is subcutaneous soft tissue edema about the knee. There is a high-grade interstitial tear with associated intramuscular edema pattern in the distal vastus lateralis muscle. IMPRESSION: 1. There is a high-grade interstitial muscle tear in the distal vastus lateralis. Grade 2 sprain pattern in the lateral collateral ligament. No discontinuity. Subcutaneous soft tissue edema seen about the knee. 2. Chondromalacia patella with high-grade chondral fissuring in the lateral patellar facet and moderate-sized knee joint effusion. 3. Patellar tendinosis with distal tendinous laxity.
== END ==
PROVIDERS: PCP Family Medicine; Visit Provider Orthopaedic Surgery
DX: S82.102A Unspecified fracture of upper end of left tibia, initial encounter for closed fracture (principal)
CPT/HCPCS: 73721

== ENCOUNTER 2022-12-06 09:33 | Outpatient (RCR) | payer OTHER, SELFPAY | END 2022-12-06 11:00 | disposition home or self-care (01) | LOC: PT 09:33 | PROVIDERS: Visit Provider Orthopaedic Surgery | DX: M25.562 Pain in left knee (principal); S86.112A Strain of other muscle(s) and tendon(s) of posterior muscle group at lower leg level, left leg, initial encounter | CPT/HCPCS: 97760 ==

== ENCOUNTER 2022-12-16 05:41 | Emergency (ER) | payer OTHER, SELFPAY ==
[2022-12-16] VITALS (9 sets, daily range): BP systolic 115–155; BP diastolic 72–92; PULSE 70–100; RESP 12–24; TEMP 36.4–36.7; O2SAT 96–100; BMI 63.4
--- NOTE | 2022-12-16 05:37 | ECG_ITS ---
APPROVED REPORT Exam: Resting ECG HR:85 bpm ECG Measurements Heart Rate 85 AXES WI 170 P 66 QRSd 86 QRS 65 QT 346 T 63 QTc 388 Conclusion SINUS RHYTHM WITH SINUS ARRHYTHMIA LOW QRS VOLTAGE IN PRECORDIAL LEADS [QRS DEFLECTION < 1.0 mV IN CHEST LEADS] BORDERLINE ECG UNCONFIRMED REPORT Electronically signed by : Mega Jaramillo MD 12/16/2022 14:25:32
--- NOTE | 2022-12-16 05:48 | PC.NURSE ---
in room talking with patient at this time.
--- NOTE | 2022-12-16 05:50 | CT_ITS ---
PROCEDURE INFORMATION: Exam: CTA Chest With Contrast Exam date and time: 12/16/2022 6:31 AM Age: 32 years old Clinical indication: Shortness of breath; Additional info: Chest pain, SOA TECHNIQUE: Imaging protocol: Computed tomographic angiography of the chest with contrast. Exam focused on the arteries. 3D rendering (Not supervised by radiologist): MIP and/or 3D reconstructed images were created by the technologist. Radiation optimization: All CT scans at this facility use at least one of these dose optimization techniques: automated exposure control; mA and/or kV adjustment per patient size (includes targeted exams where dose is matched to clinical indication); or iterative reconstruction. Contrast material: ISOVUE 370; Contrast volume: 70 ml; Contrast route: INTRAVENOUS (IV); REPORTING DATA: Count of CT and Cardiac NM exams in prior 12 months: This patient has received 8 known CTs and 0 known cardiac nuclear medicine studies in the 12 months prior to the current study. COMPARISON: CT ANGIO CHEST PE PROTOCOL 08/14/2022 1:14 AM FINDINGS: Pulmonary arteries: Normal. No pulmonary emboli. Aorta: Unremarkable. No aortic aneurysm. No aortic dissection. Lungs: Unremarkable. No consolidation. No masses. Pleural spaces: Unremarkable. No pneumothorax. No pleural effusion. Heart: Unremarkable. No cardiomegaly. No pericardial effusion. Lymph nodes: Unremarkable. No enlarged lymph nodes. Bones/joints: Unremarkable. No acute fracture. Soft tissues: Unremarkable. IMPRESSION: No pulmonary emboli or other acute cardiopulmonary pathology identified.
--- NOTE | 2022-12-16 05:52 | HMH.EDGENADL ---
Discharge Plan Disposition Patient Disposition: Still a Patient Condition: Good Chief Complaint: Chest Pain Prescriptions Prescriptions: No Action No Known Home Medications Referrals Follow up/Referrals: Provider,Referral, [Referring] - See instructions Clinical Impressions Clinical Impression: Chest pain Discharge ED Provider: Gerda Ruiz General Adult HPI General Chief complaint: Chest Pain Stated complaint: Chest Pain Time Seen by Provider: 12/16/22 05:46 Mode of Arrival: EMS Source of Information: Patient Limitations: No Limitations Description of Symptoms (Recalled from ER Triage Doc. by RN): Patient reports awoke around 0500 with central/substernal chest pain that is worse with inspiration. Patient reports no heart history, but does report similar symptoms with a previous pneumonia. Patient denies cough or fever at home. Does report sick contacts in the last week. History of Present Illness HPI narrative: This patient is a 32-year-old female with a history of morbid obesity, reactive airway disease, and recent left knee injury currently in a knee immobilizer presenting to the emergency department for evaluation with concern for substernal chest pain that started around 5:00 this morning. She states that it woke her up from sleep. She states that it is substernal and nonradiating. It gets worse with inspiration and cough. She feels short of air and like she cannot get a good breath in. She states she had similar symptoms in the past with pneumonia. She states that she was fine before she went to bed last night and has had no recent fevers, chills, cough, congestion, abdominal pain, nausea, vomiting, change in bowel movements, or other concerns. Related Data Home Medications Medication Instructions Recorded Confirmed No Known Home Medications 11/30/22 12/06/22 Allergies Allergy/AdvReac Type Severity Reaction Status Date / Time amoxicillin [From Augmentin] Allergy Verified 12/06/22 08:52 ceftriaxone [From Rocephin] Allergy Verified 12/06/22 08:52 clavulanic acid Allergy Verified 12/06/22 08:52 [From Augmentin] [facility] Disclaimer: The information contained in this section may have been updated after the patient was seen, as this information can be updated by other users. 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 current occupational exposures/hazards: No caffeine: Yes ROS Obtained: Yes All systems reviewed & no additional complaints except as documented Physical Exam General General appearance: alert, in no apparent distress and obese Head Head exam: atraumatic and normocephalic Eye Eye exam: Present normal appearance, PERRL and EOMI ENT ENT exam: Present normal exam, normal oropharynx, mucous membranes moist and normal external ear exam Neck Neck exam: Present normal inspection, full ROM and trachea midline; Absent tenderness Chest Chest inspection: Present normal inspection and symmetric chest wall rise; Absent tenderness Respiratory Respiratory exam: Present normal lung sounds bilaterally; Absent respiratory distress, wheezes, stridor or accessory muscle use Cardiovascular Cardiovascular exam: Present regular rate and normal rhythm Abdominal Exam Abdominal exam: Present soft; Absent distention, tenderne
[2022-12-16 05:58] LABS: Basophils # 0.1 K/mm3 (0-0.2); Basophils % 0.4 % (0.1-2.0); Eosinophils # 0.3 K/mm3 (0.0-0.4); Eosinophils % 2.3 % (0.1-12.0); Hematocrit 42.2 % (37.0-47.0); Hemoglobin 14.6 g/dL (12.2-16.2); Lymphocytes # 3.1 K/mm3 (0.7-4.5); Mean Corpuscular HGB Conc 34.6 g/dL (31.8-35.4); Mean Corpuscular Hemoglobin 31.8 pg (27.0-31.2); Mean Corpuscular Volume 91.8 fl (81-99); Mean Platelet Volume 7.8 fl (7.4-10.4); Monocytes # 0.4 K/mm3 (0.1-1.0); Monocytes % 3.3 % (1.7-9.3); Neutrophils # 8.6 K/mm3 (1.8-7.8); Neutrophils % 68.9 % (37.0-80.0); Platelet Count 280 K/mm3 (142-424); Red Cell Distribution Width 14.5 % (11.5-17.5); White Blood Count 12.5 K/mm3 (4.8-10.8)
[2022-12-16 06:07] LABS: Chloride 107 mmol/L (98-107); Potassium 3.7 mmoL/L (3.5-5.1); Sodium 139 mmol/L (136-145)
[2022-12-16 06:09] LABS: Blood Urea Nitrogen 17 mg/dl (7-17); Creatinine Clearance Estimated 98 mL/min (50-200); Estimated Glomerular Filt Rate 117 ml/min (>60); GFR (African American) 142 ML/MIN (>60)
[2022-12-16 06:10] LABS: Alanine Aminotransferase 50 U/L (12-78); Albumin Level 3.8 g/dl (3.5-5.0); Albumin/Globulin Ratio 1.5 (1.1-1.8); Alkaline Phosphatase 88 U/L (38-126); Anion Gap 11.7 mEq/L (5-15); Aspartate Amino Transferase 47 U/L (14-36); Calcium 8.4 mg/dl (8.4-10.2); Carbon Dioxide 24 mmol/L (22.0-30.0); Globulin 2.6 g/dL (1.3-3.2); Glucose 143 mg/dl (74-100); Total Protein,Serum 6.4 g/dl (6.3-8.2)
[2022-12-16 06:11] LABS: HCG Qualitative, Serum Negative (Negative)
--- NOTE | 2022-12-16 06:21 | PC.NURSE ---
patient gone to CT at this time.
[2022-12-16 06:22] LABS: Bilirubin,Total 0.1 mg/dl (0.2-1.3)
[2022-12-16 06:24] LABS: Troponin I < 0.01 ng/ml (0.00-0.034)
--- NOTE | 2022-12-16 06:38 | PC.NURSE ---
patient back in room from CT at this time.
[2022-12-16 07:41] LABS: Coronavirus 19, PCR Not Detected (NotDetected); Influenza A, PCR Not Detected (NotDetected); Influenza B, PCR Not Detected (NotDetected)
--- NOTE | 2022-12-16 07:57 | PC.NURSE ---
Rounded on pt. No needs voiced at this time. Call light placed within reach.
--- NOTE | 2022-12-16 08:07 | PC.NURSE ---
Pt ambulatory to bathroom and back to bed. No other needs voiced.
--- NOTE | 2022-12-16 08:25 | PC.NURSE ---
Dr. Nguyễn at BS to update pt on results and POC
--- NOTE | 2022-12-16 08:56 | PC.NURSE ---
Dr. Nguyễn at bedside
--- NOTE | 2022-12-16 08:58 | PC.NURSE ---
called lab to check status of rapid covid/flu and 2nd troponin. States both will be resulted in 10 min. aware.
[2022-12-16 09:03] LABS: Troponin I < 0.01 ng/ml (0.00-0.034)
== END 2022-12-16 09:29 | disposition still patient (30) ==
PROVIDERS: Emergency Provider Emergency Medicine; PCP Family Medicine
DX: R07.9 Chest pain, unspecified (principal); I49.9 Cardiac arrhythmia, unspecified; R06.02 Shortness of breath; F17.210 Nicotine dependence, cigarettes, uncomplicated; J45.909 Unspecified asthma, uncomplicated; E66.01 Morbid (severe) obesity due to excess calories; G47.33 Obstructive sleep apnea (adult) (pediatric)
CPT/HCPCS: 71275; 80053; 84484; 84703; 85025; 87636; 93005; 99284; Q9967

== ENCOUNTER 2023-01-08 10:21 | Emergency (ER) | payer OTHER, SELFPAY ==
[2023-01-08 10:35] VITALS: BP 144/90; PULSE 98; RESP 18; TEMP 36.7; O2SAT 99; BMI 57.4
--- NOTE | 2023-01-08 10:50 | EXP.UTC ---
Discharge Plan Disposition Patient Disposition: Home, Self-Care Condition: Good Prescriptions Prescriptions: No Action fluticasone propionate 50 mcg/actuation spray,suspension 2 spray intranasal DAILY Rx Instructions: administer into each nostril loratadine [Claritin] 10 mg tablet 10 mg PO DAILY budesonide-formoterol [Symbicort] 160-4.5 mcg/actuation HFA aerosol inhaler 1 puff inhalation QID PRN (Reason: shortness of breath or wheezing) 90 Days Qty: 10.2 3RF Referrals Follow up/Referrals: Mega Reynolds MD [Primary Care Provider] - See instructions Activity Restrictions/Add. Instructions Additional Instructions/Restrictions: *Monitor Temp, Over the counter Motrin or Tylenol as directed/as needed Tylenol every 4 hours and Motrin every 6 hours (as long as your family doctor has told you that you can take it) for fever or pain. and straight to ER if unable to lower temp less than 101.0 after medication given *Warm salt water gargles may help to soothe the throat *Throat Lozenges? *Warm fluids like tea with honey may help to soothe the throat? *Sleep elevated *Humidifier/Vaporizer *Flonase 2 sprays in each nostril daily but be aware that it may take 2-3 days before you notice improvement Take Medrol pack as prescribed Your throat swab was sent for culture. Those results are typically sent to your primary care. Be sure to follow up in 2-3 days with your family doctor/primary care physician if no improvement so they can review those result and treat if necessary. If you don?t have a primary care doctor, I recommend you get one but in the mean time, you will have to return to a walk in clinic Follow up IMMEDIATELY for new or worsening symptoms or no Noticeable improvement over the next 48-72 hours. 911 for difficulty breathing or swallowing Clinical Impressions Clinical Impression: URI (upper respiratory infection) Qualifiers: URI type: unspecified URI Qualified Code(s): J06.9 - Acute upper respiratory infection, unspecified Instructions Patient Instructions: Sore Throat, DI for Nasal Congestion Discharge ED Provider: Lillie Forrest [facility] HPI General Stated complaint: sore throat Mode of Arrival: Ambulatory Source of Information: Patient Limitations: No Limitations Time Seen by Provider: 01/08/23 10:50 Description of Symptoms (Recalled from Triage Doc. by RN): PATIENT C/O SWELLING AND WHITE PATCHES TO THROAT AND UVULA X 1 WEEK HEENT Symptoms (Recalled from RN notes): Yes Resp Symptoms (Recalled from RN notes): No Skin Symptoms (Recalled from RN notes): No MS Symptoms (Recalled from RN notes): No Functional Status (Recalled from RN notes): WNL History of Present Illness Provider Complaint: Patient states that she started with sore throat on Mon States that she seen Urgent Care by her work and was tested for strep and it was negative but said it looked like strep so they started her on a zpack States that she has been taking it and it hasnt helped States that her throat is still hurting and feels like her uvula is swollen Related Data Home Medications Medication Instructions Recorded Confirmed fluticasone propionate 50 2 spray intranasal DAILY 12/23/22 12/27/22 mcg/actuation nasal spray,suspension loratadine 10 mg tablet (Claritin) 10 mg PO DAILY 12/23/22 12/27/22 Previous Rx's Medication Instructions Recorded budesonide-formoterol HFA 160 1 puff inhalation QID PRN 12/27/22 mcg-4.5 mcg/actuation aerosol shortness of breath or wheezing 90 inhaler (Symbicort) days #10.2 grams Allergies Allergy/AdvReac Type Severity Reaction Status Date / Time amoxicillin [From Augmentin] Allergy Verified 12/27/22 08:57 ceftriaxone [From Rocephin] Allergy Verified 12/27/22 08:57 clavulanic acid Allergy Verified 12/27/22 08:57 [From Augmentin] Worker's Comp Is this a Worker's Comp case?: No [facility] Disclaimer: The inf
[2023-01-08 10:51] LABS: UTC Strep Screen (Rapid) Negative (Negative)
[2023-01-08 11:07] VITALS: BP 144/90; PULSE 98; RESP 18; TEMP 36.7; O2SAT 99
== END 2023-01-08 11:08 | disposition home or self-care (01) ==
PROVIDERS: Emergency Provider Nurse Practitioner; PCP Family Medicine
DX: J06.9 Acute upper respiratory infection, unspecified (principal); R07.0 Pain in throat; F17.210 Nicotine dependence, cigarettes, uncomplicated
CPT/HCPCS: 87880; 99212; 99214; G0463

== ENCOUNTER 2023-02-01 20:59 | Emergency (ER) | payer OTHER, SELFPAY ==
[2023-02-01 21:00] VITALS: BP 142/100; PULSE 111; RESP 18; TEMP 36.6; O2SAT 99; BMI 62.4
--- NOTE | 2023-02-01 21:54 | HMH.EDGENADL ---
Discharge Plan Disposition Patient Disposition: Home, Self-Care Chief Complaint: Skin/Abscess/Foreign Body Prescriptions Prescriptions: No Action fluticasone propionate 50 mcg/actuation spray,suspension 2 spray intranasal DAILY Rx Instructions: administer into each nostril loratadine [Claritin] 10 mg tablet 10 mg PO DAILY budesonide-formoterol [Symbicort] 160-4.5 mcg/actuation HFA aerosol inhaler 1 puff inhalation QID PRN (Reason: shortness of breath or wheezing) 90 Days Qty: 10.2 3RF methylprednisolone [Medrol (Pipe)] 4 mg tablets,dose pack See Rx Instructions .Route .COMPLEX 6 Days Qty: 21 0RF Rx Instructions: taper pack; Referrals Follow up/Referrals: Mega Reynolds MD [Primary Care Provider] - See instructions Activity Restrictions/Add. Instructions Additional Instructions/Restrictions: At this time it was felt you are safe to be discharged home. If new or worsening symptoms please do not hesitate to return the emergency department. Please obtain 1% hydrocortisone cream as well as Neutrogena T-Gel shampoo from [employer]. Do not take significantly hot showers. Please take Benadryl every 6 hours for the next few days to alleviate symptoms. After your trip please follow-up with your family doctor for continued evaluation. Clinical Impressions Clinical Impression: Itchy scalp Instructions Patient Instructions: DI for Skin Abscess Discharge ED Provider: Magdiel Spivey General Adult HPI General Chief complaint: Skin/Abscess/Foreign Body Stated complaint: itchy head Time Seen by Provider: 02/01/23 21:54 Mode of Arrival: Ambulatory Source of Information: Patient Limitations: No Limitations Description of Symptoms (Recalled from ER Triage Doc. by RN): pt c/o itching scalp x 3 days. History of Present Illness HPI narrative: Patient is a 32-year-old female with no pertinent past medical history who presents emergency department for evaluation of itchy scalp. Onset was acute, over the last 3 days. No new medicines, no new clothing, no new detergents, no new soaps. Patient does take warm to hot showers at baseline. Patient has not taken Benadryl. No other acute complaints at this time. Related Data Home Medications Medication Instructions Recorded Confirmed fluticasone propionate 50 2 spray intranasal DAILY 12/23/22 01/31/23 mcg/actuation nasal spray,suspension loratadine 10 mg tablet (Claritin) 10 mg PO DAILY 12/23/22 01/31/23 Previous Rx's Medication Instructions Recorded budesonide-formoterol HFA 160 1 puff inhalation QID PRN 12/27/22 mcg-4.5 mcg/actuation aerosol shortness of breath or wheezing 90 inhaler (Symbicort) days #10.2 grams methylprednisolone 4 mg tablets in See Rx Instructions .Route 01/08/23 a dose pack (Medrol (Pipe)) .COMPLEX 6 days #21 tabs Allergies Allergy/AdvReac Type Severity Reaction Status Date / Time amoxicillin [From Augmentin] Allergy Verified 01/31/23 09:03 ceftriaxone [From Rocephin] Allergy Verified 01/31/23 09:03 clavulanic acid Allergy Verified 01/31/23 09:03 [From Augmentin] [facility] Disclaimer: The information contained in this section may have been updated after the patient was seen, as this information can be updated by other users. Medical History Daytime somnolence Dyspnea on exertion Gall stones Snoring Wheezing without diagnosis of asthma Witnessed episode of apnea Surgical History H/O LEEP History of cholecystectomy Family History Other Cancer of breast Mouth cancer Social History Smoking Status: Current every day smoker tobacco type: cigarettes packs per day: 1 second hand exposure: Yes alcohol intake: never substance use type: denies use current
[2023-02-01 22:24] VITALS: BP 134/87; PULSE 100; RESP 18; TEMP 36.6; O2SAT 97
== END 2023-02-01 22:24 | disposition home or self-care (01) ==
PROVIDERS: Emergency Provider Emergency Medicine; PCP Family Medicine
DX: L29.9 Pruritus, unspecified (principal); F17.210 Nicotine dependence, cigarettes, uncomplicated
CPT/HCPCS: 99282

== ENCOUNTER → 2023-02-09 08:13 | Outpatient (CLI) | payer OTHER, SELFPAY ==
[2023-02-09 08:55] VITALS: PULSE 79
== END ==
PROVIDERS: PCP Family Medicine; Visit Provider Internal Medicine Pulmonary Disease
DX: R06.09 Other forms of dyspnea (principal)
CPT/HCPCS: 94060; 94640; 94726; 94729

== ENCOUNTER 2023-03-07 08:30 | Outpatient (RCR) | payer OTHER, SELFPAY ==
--- NOTE | 2023-01-03 09:00 | HMH.PTOPEV ---
PT Outpatient Evaluation Rehab PT Outpatient Evaluation Start: 01/03/23 07:47 Freq: Status: Active Protocol: Document 01/03/23 08:16 PHOROCAEL (Rec: 01/03/23 08:59 PHORNE [id number]) E-signed By Richar Beasley, PT Outpatient Therapy Subjective History Subjective History This is the initial PT eval for Keli Gay, 32 yowf who presents ~ 1 mo S/P L knee injury. She reports She originally had a fall ~ 1 wk prior to bending over and hearing a pop in my knee. She reports difficulty ambulating due to pain and weakness after this incident. MRI was performed which showed grade 2 LCL spraion and vastus lateralis tear. She is ambulating with T-scope knee brace locked in extension. New diagnosis of cancer in past 12 No months? Chief Complaint Pain,Stiff,Weakness Symptom Type Ache Symptoms Relieved By Rest/Positioning Symptoms Aggravated By Physical Activity,Walking Prior Functional Limitations None Current Functional Limitations Housework,Standing,Recreation Activity,Walking Symptom Description Activity Dependent Level of pain today (0-10) 0 Pain scale - at its worst (0-10) 4 Hip/Knee Eval Gait Observation General Gait Pattern Observation Antalgic Gait Palpation Tenderness left Knee Palpation Finding Tenderness Knee Palpation Overall Comment lateral knee jt line 1/4 MMT Hip Flexion Strength Grade 4- Good- Hip Abduction Strength Grade 4 Good Hip Adduction Strength Grade 4 Good Hip Extension Strength Grade 4 Good Knee Extension Strength Grade 3+ Fair+ Knee Flexion Strength Grade 4 Good ROM Knee Extension Active Range of Motion ( 0 degrees) Knee Extension Passive Range of Motion ( 0 degrees) Knee Flexion Active Range of Motion ( 0-65 degrees) Knee Flexion Passive Range of Motion ( 0-100 degrees) Special Tests Hip Bowstring (Cram) Test Negative Right,Positive Left Hip Scouring (Quadrant) Test Negative Left,Negative Right Knee Apley Compression Test Negative Left,Negative Right Knee Anterior Axel Test Negative Left,Negative Right Knee Posterior Sag ([place] Drawer) Test Negative Left,Negative Right Knee Valgus Stress Test Negative Left,Negative Right Knee Varus Stress Test Negative Left,Negative Right Knee Mary Test Negative Left,Negative Right Lower Extremity Functional Index Activities Today, do you or would you have any difficulty at all with: a.Any of your usual work, housework or A little bit of difficulty school activities b. Your usual hobbies, recreational or A little bit of difficulty sporting activities c. Getting into or out of the bath A little bit of difficulty d. Walking between rooms No difficulty e. Putting on your shoes or socks Moderate difficulty f. Squatting Extreme difficulty or unable to perform activity g. Lifting an object, like a bag of A little bit of difficulty groceries from the floor h. Performing light activities around No difficulty your home i. Performing heavy activities around A little bit of difficulty your home j. Getting into or out of a car A little bit of difficulty k. Walking 2 blocks A little bit of difficulty l. Walking a mile Moderate difficulty m. Going up or down 10 stairs (about 1 Moderate difficulty flight of stairs) n. Standing for 1 hour A little bit of difficulty o. Sitting for 1 hour Moderate difficulty p. Running on even ground Quite a bit of difficulty q. Running on uneven ground Quite a bit of difficulty r. Making sharp turns while running fast Quite a bit of difficulty s. Hopping Extreme difficulty or unable to perform activity t. Rolling over in bed A little bit of difficulty LEFI Score Lower Extremity Functional Index Score 46 Outpatient Therapy Assessment Impairments Problems/Impairmments Palpation Tenderness,Impaired Range of Motion,Impaired Strength,Impaired Endurance, Impaired Gait Pattern,Impaired Walking,Impaired Standing, Impaired Sitting,Impaired Shower/Bathing,Impaired Household Care,Impaired Stair Climbing,Impaired Incline Stepping,Impaired Stepping on Uneven Surface,Impaired Squatting,Impaired Recreational Activities, Impaired Work Activities, Increased Edema,Subjective C/O Pain,Impaired Self Care/Self Management Prognosis Rehab Potential Good Clinical Impression Consistent with Diagnosis Yes Short Term Goals Number of Weeks 2 Decreased Palpation Tenderness Yes: 0/4 L knee Increase Range of Motion Yes: L knee AROM 0-90 Increase Strength Yes: L LE 4/5 throughout Improve Gait Pattern without Assistive Yes: No antalgic gait Device Improve LEFI Score Yes: >53 Decrease Subjective C/O Pain Yes: 2/10 at worst Patient to be Ind w/ HEP Yes Alf Goals Number of Weeks 4 Increase Range of Motion Yes: L knee AROM 0-120 Increase Strength Yes: L LE 5/5 throughout Increase Ability to Walk Yes: > 15 min without pain Increase Ability to Drive/Ride in Car Yes: withpout pain Improve Ability to Climb Stairs Yes Improve Ability to Squat Yes: without pain Improve LEFI Score Yes: >58 Decrease Subjective C/O Pain Yes: 0/10 Patient to be Ind w/ Advanced HEP Yes Outpatient Therapy Plan of Care Treatment Plan May Include Therapeutic Exercise Including Home Yes Exercise Program Manual Therapy Techniques Yes Neuromuscular Re-education Yes Therapeutic Activities to Return to Yes Previous Functional/Work Level Gait Training Yes ADL/Self Care Education Yes Dry Needling Yes Thermal Modalities Yes Electrical Stimulation Yes Ultrasound/Phonophoresis Yes Orthotics/Bracing/Splinting Yes Vasopneumatic Compression Pump Yes Massage Yes Manual Lymphatic Drainage Yes Eval/Re-Eval Yes Aquatic Therapy Yes Frequency Times per week 2-3 Duration Number of Weeks 4 Addendums This patient is a candidate for social No or vocational rehab? Patient/Guardian verbally acknowledges Yes understanding of treatment program and consents to further treatment? Patient/Guardian verbally acknowledges Yes understanding of diagnosis, prognosis and goals for treatment? Eval Complexity PT Charges 73458 - High Complexity Shoulder/Elbow Eval Shoulder Objective Measurements Elbow Objective Measurements PHYSICIAN CERTIFICATION: I certify the specified therapy services for Keli Gay are required, authorized, and reviewed every 30 days.
--- NOTE | 2023-02-01 09:19 | HMH.RHREAS ---
Rehab Reassessment Rehab OP Re-assessment Start: 01/03/23 07:47 Freq: Status: Active Protocol: Document 02/01/23 09:11 PHORTAMRA (Rec: 02/01/23 09:18 PHORNE [id number]) E-signed By Richar Beasley, PT Lower Extremity Functional Index Activities Today, do you or would you have any difficulty at all with: a.Any of your usual work, housework or A little bit of difficulty school activities b. Your usual hobbies, recreational or Moderate difficulty sporting activities c. Getting into or out of the bath A little bit of difficulty d. Walking between rooms No difficulty e. Putting on your shoes or socks A little bit of difficulty f. Squatting Quite a bit of difficulty g. Lifting an object, like a bag of A little bit of difficulty groceries from the floor h. Performing light activities around No difficulty your home i. Performing heavy activities around A little bit of difficulty your home j. Getting into or out of a car No difficulty k. Walking 2 blocks A little bit of difficulty l. Walking a mile A little bit of difficulty m. Going up or down 10 stairs (about 1 Moderate difficulty flight of stairs) n. Standing for 1 hour No difficulty o. Sitting for 1 hour No difficulty p. Running on even ground Quite a bit of difficulty q. Running on uneven ground Quite a bit of difficulty r. Making sharp turns while running fast Quite a bit of difficulty s. Hopping Quite a bit of difficulty t. Rolling over in bed A little bit of difficulty LEFI Score Lower Extremity Functional Index Score 53 Rehab Re-assessment Subjective Subjective Pt reports, I know I can do a whole lot more than I used to be able to do. I just still have trouble with stairs and squatting down. Objective Objective Notes MMT L LE: HIP FLEX 4+/5, KNEE EXT 4+/5, HIP ABD 4+/5, HIP ADD 5/5, HIP EXT 5/5, KNEE FLEX 5/5 AROM L KNEE: 0-112 DEG TTP: 0/4 L LATERAL KNEE Assessment Progress Assessment Progressing as Expected Assessment Notes Pt has shown consistent and significant improvement in all mobility, strength and pain in the L knee. She continues to have function difficulty with stairs, especially ascending reciprocally, and squatting down. She continues to need skilled intervention to return to prior level of function. Patient goals met ST,2,3,4,5,6,7 Goals Not Met LT,2,3,4,5,6,7,8,9 Plan Plan Continue per initial POC improving functional mobility as able. Frequency of Therapy 2 x/wk Duration of therapy 4 wks Time and Billing Re-Eval Time 16 Re-Eval Billing Units 1 PHYSICIAN CERTIFICATION: I certify the specified therapy services for Keli Gay are required, authorized, and reviewed every 30 days.
--- NOTE | 2023-03-07 10:30 | HMH.RHREAS ---
Rehab Reassessment Rehab OP Re-assessment Start: 01/03/23 07:47 Freq: Status: Active Protocol: Document 03/07/23 10:25 AGUSTIN (Rec: 03/07/23 10:29 AGUSTIN [id number]) E-signed By Richar Beasley, PT Rehab Re-assessment Subjective Subjective Pt reports she is feeling much better overall. I still worry about the stair, but I don't have any problems if I do them slow. Objective Objective Notes MMT L LE: HIP FLEX 5/5, KNEE EXT 5/5, HIP ABD 5/5, HIP ADD 5/5, HIP EXT 5/5, KNEE FLEX 5/ 5 AROM L KNEE: 0-127 DEG TTP: 0/4 L LATERAL KNEE Assessment Progress Assessment Progressing as Expected Assessment Notes Pt has shown much improved strength and AROM of the L knee. She has minimal difficulty with descending stairs at home. Patient goals met ST,2,3,4,5,6,7 LT,2,3,4,5,6,7,8,9 Plan Plan Will D/c pt to [facility] at this time. Time and Billing Re-Eval Time 13 Re-Eval Billing Units 1 PHYSICIAN CERTIFICATION: I certify the specified therapy services for Keli Gay are required, authorized, and reviewed every 30 days.
== END 2023-03-07 09:30 | disposition home or self-care (01) ==
LOC: PT 08:30
PROVIDERS: PCP Family Medicine; Visit Provider Orthopaedic Surgery
DX: M25.562 Pain in left knee; S89.92XA Unspecified injury of left lower leg, initial encounter; S83.422A Sprain of lateral collateral ligament of left knee, initial encounter; S76.112A Strain of left quadriceps muscle, fascia and tendon, initial encounter
CPT/HCPCS: 97010; 97014; 97016; 97110; 97163; 97164; 97530; G0283

== ENCOUNTER → 2023-05-04 20:19 | Outpatient (CLI) | payer OTHER, SELFPAY | LOC: SL 20:23 | PROVIDERS: PCP Family Medicine; Visit Provider Internal Medicine Pulmonary Disease | DX: G47.33 Obstructive sleep apnea (adult) (pediatric) (principal); G47.36 Sleep related hypoventilation in conditions classified elsewhere; G47.37 Central sleep apnea in conditions classified elsewhere; R06.83 Snoring | CPT/HCPCS: 95810 ==

== ENCOUNTER 2023-05-31 18:45 | Emergency (ER) | payer OTHER, SELFPAY ==
[2023-05-31 19:00] VITALS: BP 145/95; PULSE 108; RESP 20; TEMP 37.1; O2SAT 98; BMI 65.0
[2023-05-31 19:10] LABS: UTC Pregnancy Test, Urine Negative (Negative)
[2023-05-31 19:10] LABS: Apearance,Urine Clear (Clear); Bilirubin,Urine Negative (Negative); Blood, Urine 3+ (Negative); Color,Urine Yellow (Yellow); Glucose,Urine (UA) Negative (Negative); Ketones,Urine Negative (Negative); PH,Urine 6.5 (5.0-8.5); Protein,Urine Negative (Negative); UTC Leukocyte Esterase,Urine Negative (Negative); UTC Nitrate,Urine Negative (Negative); Urobilinogen,Urine 0.2 EU/dl (0.2)
[2023-05-31 19:13] VITALS: BP 145/95; PULSE 108; RESP 20; TEMP 37.1; O2SAT 98
--- NOTE | 2023-05-31 19:16 | EXP.UTC ---
Discharge Plan Disposition Patient Disposition: Home, Self-Care Condition: Good Prescriptions Prescriptions: No Action fluticasone propionate 50 mcg/actuation spray,suspension 2 spray intranasal DAILY Rx Instructions: administer into each nostril loratadine [Claritin] 10 mg tablet 10 mg PO DAILY budesonide-formoterol [Symbicort] 160-4.5 mcg/actuation HFA aerosol inhaler 1 puff inhalation QID PRN (Reason: shortness of breath or wheezing) 90 Days Qty: 10.2 3RF Referrals Follow up/Referrals: Mega Reynolds MD [Primary Care Provider] - See instructions Activity Restrictions/Add. Instructions Additional Instructions/Restrictions: Follow up with your Family Doctor for further testing and evaluation Follow up with your OBGYN for further evaluation and testing Make sure you are drinking plenty of fluids Straight to ER if any life threatening symptoms Follow up immediately with your Family Doctor if no improvement or any worsening of symptoms Clinical Impressions Clinical Impression: Cloudy urine Discharge ED Provider: Lillie Forrest [facility] General Stated complaint: possible UTI Mode of Arrival: Ambulatory Source of Information: Patient Limitations: No Limitations Time Seen by Provider: 05/31/23 19:16 Description of Symptoms (Recalled from Triage Doc. by RN): PATIENT C/O CLOUDY URINE WITH FOUL ODOR, FREQUENT URINATION, AND HOT FLASHES HEENT Symptoms (Recalled from RN notes): No Resp Symptoms (Recalled from RN notes): No Skin Symptoms (Recalled from RN notes): No MS Symptoms (Recalled from RN notes): No Functional Status (Recalled from RN notes): WNL History of Present Illness Provider Complaint: Patient states that she has been having hot flashes for about a week and she is just getting off her period and today she had some pressure and noticed her urine looked cloudy and smelled so she was worried she may have a UTI so she came in to get checked to make sure that she didnt have a UTI Related Data Home Medications Medication Instructions Recorded Confirmed fluticasone propionate 50 2 spray intranasal DAILY 12/23/22 02/09/23 mcg/actuation nasal spray,suspension loratadine 10 mg tablet (Claritin) 10 mg PO DAILY 12/23/22 02/09/23 Previous Rx's Medication Instructions Recorded budesonide-formoterol HFA 160 1 puff inhalation QID PRN 12/27/22 mcg-4.5 mcg/actuation aerosol shortness of breath or wheezing 90 inhaler (Symbicort) days #10.2 grams Allergies Allergy/AdvReac Type Severity Reaction Status Date / Time amoxicillin [From Augmentin] Allergy Verified 02/09/23 10:09 ceftriaxone [From Rocephin] Allergy Verified 02/09/23 10:09 clavulanic acid Allergy Verified 02/09/23 10:09 [From Augmentin] Worker's Comp Is this a Worker's Comp case?: No [facility] Disclaimer: The information contained in this section may have been updated after the patient was seen, as this information can be updated by other users. Medical History (Updated 05/31/23 @ 19:23 by Lillie Forrest APRN) CSA (central sleep apnea) [place] (obstructive sleep apnea) Dyspnea on exertion Wheezing without diagnosis of asthma Daytime somnolence Snoring Witnessed episode of apnea Gall stones Surgical History History of cholecystectomy H/O LEEP Family History Other Cancer of breast Mouth cancer Social History Smoking Status: Current every day smoker tobacco type: cigarettes packs per day: 1 second hand exposure: Yes alcohol intake: never substance use type: denies use current occupational status: other Travel in the last 8 weeks: Inside the [place] household members: family housing: house 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 current occupational exposures/hazards: No caffeine: Yes ROS Obtained: Yes All systems reviewed & no additional complaints except as documented and Yes Systems reviewed as appropriate & no additional complaints except as documented Constitutional Constitutional: Reports system reviewed and no additional complaints, except as documented, Reports as per HPI, Denies body ache, Denies chills and Denies fever(s) ENT Ears, Nose, Mouth, and Throat: Reports system reviewed and no additional complaints, except as documented and Reports as per HPI Cardiovascular Cardiovascular: Reports system reviewed and no additional complaints, except as documented, Reports as per HPI and Denies palpitations Respiratory Respiratory: Reports system reviewed and no additional complaints, except as documented and Reports as per HPI Gastrointestinal Gastrointestingal: Reports system reviewed and no additional complaints, except as documented and as per HPI Genitourinary Female Genitourinary: Reports system reviewed and no additional complaints, except as documented, Reports as per HPI, Denies flank pain, Denies urinary frequency, Denies urinary urgency, Denies vaginal discharge, Denies vaginal dryness, Denies vaginal odor, Denies vaginal pruritus and Reports other (pressure earlier in her lower abd. cloudy urine that smelled strong) Integumentary/Breasts Skin/Breast: Reports system reviewed and no additional complaints, except as documented and Reports as per HPI Neurologic Neurologic: Reports system reviewed and no additional complaints, except as documented, Reports as per HPI and Reports other ( hot flashes ) Endocrine Endocrine: Reports system reviewed and no additional complaints, except as documented, Reports as per HPI, Reports heat intolerance, Denies palpitations, Denies polydipsia, Denies polyphagia and Denies polyuria Physical Exam General General appearance: alert and in no apparent distress ENT ENT exam: Present mucous membranes moist Respiratory Respiratory exam: Present normal lung sounds bilaterally; Absent respiratory distress or wheezes Cardiovascular Cardiovascular exam: Present regular rate, normal rhythm and normal heart sounds Abdominal Exam Abdominal exam: Present soft and normal bowel sounds; Absent distention or tenderness Neurological Exam Neurological exam: Present alert, oriented X3 and normal gait Medical Decision Making Herbert Inquiry Pt receiving controlled substance: No Herbert was queried for this patient: No Vital Signs: 05/31/23 19:00 05/31/23 19:13 Temperature 98.8 F 98.8 F Temperature Source Oral Pulse Rate 108 H Pulse Rate [Left Brachial] 108 H Respiratory Rate 20 20 Blood Pressure 145/95 H Blood Pressure [Left Arm] 145/95 H Blood Pressure Mean [Left Arm] 111 Blood Pressure Source [Left Arm] Automatic Cuff Blood Pressure Position [Left Arm] Sitting 02 Sat by Pulse Oximetry 98 Oxygen Delivery Method Room Air Lab Data Lab Results 05/31/23 18:52: Urine Color Yellow, Urine Appearance Clear, Urine pH 6.5, Ur Specific [place] 1.020, Urine Protein Negative, Urine Glucose (UA) Negative, Urine Ketones Negative, Urine Blood 3+, Urine Nitrate Negative, Urine Bilirubin Negative, Urine Urobilinogen 0.2, Ur Leukocyte Esterase Negative 05/31/23 19:06: [facility] Clinic Negative
== END 2023-05-31 19:20 | disposition home or self-care (01) ==
PROVIDERS: Emergency Provider Nurse Practitioner; PCP Family Medicine
DX: R82.90 Unspecified abnormal findings in urine (principal); R35.0 Frequency of micturition
CPT/HCPCS: 81003; 81025; 99212; 99213; G0463

== ENCOUNTER 2023-06-18 11:54 | Emergency (ER) | payer OTHER, SELFPAY ==
--- NOTE | 2023-06-18 11:48 | ECG_ITS ---
APPROVED REPORT Exam: Resting ECG HR:115 bpm ECG Measurements Heart Rate 115 AXES DC 136 P 55 QRSd 78 QRS 59 QT 319 T 48 QTc 387 Conclusion SINUS TACHYCARDIA LOW QRS VOLTAGE IN PRECORDIAL LEADS [QRS DEFLECTION < 1.0 mV IN CHEST LEADS] ABNORMAL RHYTHM ECG UNCONFIRMED REPORT Electronically signed by : EFE MEIER, 06/25/2023 01:21:29
[2023-06-18 11:55] VITALS: BP 158/96; PULSE 107; RESP 20; TEMP 36.6; O2SAT 96; BMI 64.4
[2023-06-18 11:56] VITALS: BMI 64.4
--- NOTE | 2023-06-18 11:57 | XR_ITS ---
PROCEDURE INFORMATION: Exam: XR Chest Exam date and time: 06/18/2023 11:58 AM Age: 32 years old Clinical indication: Chest wall pain; Additional info: Chest pain TECHNIQUE: Imaging protocol: Radiologic exam of the chest. Views: 1 view. COMPARISON: CR XR CHEST 2V 08/14/2022 12:56 AM FINDINGS: Lungs: Opacity in the medial right lower lobe may represent atelectasis or pneumonia. Pleural spaces: Unremarkable. No pleural effusion. No pneumothorax. Heart/Mediastinum: Stable cardiac silhouette Bones/joints: Unremarkable. IMPRESSION: Opacity in the medial right lower lobe may represent atelectasis or pneumonia.
--- NOTE | 2023-06-18 12:04 | PC.NURSE ---
XR AT BEDSIDE
[2023-06-18 12:05] LABS: Basophils # 0.2 K/mm3 (0-0.2); Basophils % 1.1 % (0.1-2.0); Eosinophils # 0.3 K/mm3 (0.0-0.4); Eosinophils % 1.6 % (0.1-12.0); Hemoglobin 15.5 g/dL (12.2-16.2); Lymphocytes % 5.7 % (10-50); Mean Corpuscular HGB Conc 32.4 g/dL (31.8-35.4); Mean Corpuscular Hemoglobin 30.6 pg (27.0-31.2); Mean Corpuscular Volume 94.7 fl (81-99); Mean Platelet Volume 7.8 fl (7.4-10.4); Monocytes # 0.4 K/mm3 (0.1-1.0); Monocytes % 2.4 % (1.7-9.3); Neutrophils # 15.7 K/mm3 (1.8-7.8); Neutrophils % 89.1 % (37.0-80.0); Platelet Count 320 K/mm3 (142-424); Red Blood Count 5.06 M/mm3 (4.20-5.40); Red Cell Distribution Width 14.4 % (11.5-17.5); White Blood Count 17.6 K/mm3 (4.8-10.8)
[2023-06-18 12:09] LABS: Chloride 106 mmol/L (98-107); Sodium 139 mmol/L (136-145)
[2023-06-18 12:11] LABS: MANUAL DIFFERENTIAL MANUAL DIFFERENTIAL (MANUAL DIFF)
[2023-06-18 12:12] LABS: Blood Urea Nitrogen 15 mg/dl (7-17); Calcium 9.3 mg/dl (8.4-10.2); Carbon Dioxide 27 mmol/L (22.0-30.0); Creatinine Clearance Estimated 84 mL/min (50-200); Estimated Glomerular Filt Rate 98 ml/min (>60); GFR (African American) 119 ML/MIN (>60); Glucose 112 mg/dl (74-100)
[2023-06-18 12:25] LABS: Troponin I < 0.01 ng/ml (0.00-0.034)
--- NOTE | 2023-06-18 12:58 | ED_ITS ---
Discharge Plan Disposition Patient Disposition: Home, Self-Care Condition: Good Prescriptions Prescriptions: New sucralfate 1 gram tablet 1 g PO BID 28 Days Qty: 56 0RF pantoprazole 20 mg tablet,delayed release (DR/EC) 20 mg PO DAILY 28 Days Qty: 28 0RF ondansetron 4 mg tablet,disintegrating 4 mg PO Q8H PRN (Reason: nausea and vomiting) 5 Days Qty: 5 0RF No Action fluticasone propionate 50 mcg/actuation spray,suspension 2 spray intranasal DAILY Rx Instructions: administer into each nostril loratadine [Claritin] 10 mg tablet 10 mg PO DAILY budesonide-formoterol [Symbicort] 160-4.5 mcg/actuation HFA aerosol inhaler 1 puff inhalation QID PRN (Reason: shortness of breath or wheezing) 90 Days Qty: 10.2 3RF Referrals Follow up/Referrals: Provider,Referral, MD [Primary Care Provider] - See instructions Activity Restrictions/Add. Instructions Additional Instructions/Restrictions: Please take the medications as prescribed to help calm your stomach. Please continue to drink plenty of liquids. Please return with any new or worsening symptoms. Clinical Impressions Clinical Impression: Enteritis Discharge ED Provider: Ajay Najera Adult HPI General Chief complaint: Chest Pain Stated complaint: CHEST PAIN Time Seen by Provider: 06/18/23 12:58 Mode of Arrival: Ambulatory Source of Information: Patient Limitations: No Limitations Description of Symptoms (Recalled from ER Triage Doc. by RN): epigastric pain, nausea vomiting x2 hrs History of Present Illness HPI narrative: This patient presents for evaluation of abdominal pain, epigastric and right upper quadrant Onset: Overnight Location: Epigastrium and right upper quadrant Duration: Approaching 12 hours Characteristic: Burning, bloating Alleviating/Aggrivating Factors: None identifiable in regard to alleviating, patient did eat at a restaurant overnight and had symptoms shortly thereafter Radiation: To her back Timing: Constant Severity: Severe Associated symptoms: Nausea, vomiting, diarrhea, all nonbloody ROS: Denies dysuria, denies for me chest pain, denies hematemesis, denies obstipation, denies sick contacts, denies recent travel, reports history of cholecystectomy. No known hernias. Please note that above description of symptoms, in this electronic medical record under categorization of recalled from ER triage doctor by RN are reflective of an initial nursing assessment, however, is not reflective of my full history and physical exam that was personally taken and clarified. Consequentially, this preceding description of symptoms, which may include the patient's categorized chief complaint in the EMR, do not reflect my personal clinical impression, and the ultimate description of history of present illness and patient stated complaints should be deferred to this section of the note. Unless stated otherwise or congruent with this section of the note, additional signs, symptoms, or incongruence should be interpreted as inaccurate with my clinical impression. Related Data Home Medications Medication Instructions Recorded Confirmed fluticasone propionate 50 2 spray intranasal DAILY 12/23/22 02/09/23 mcg/actuation nasal spray,suspension loratadine 10 mg tablet (Claritin) 10 mg PO DAILY 12/23/22 02/09/23 Previous Rx's Medication Instructions Recorded budesonide-formoterol HFA 160 1 puff inhalation QID PRN 12/27/22 mcg-4.5 mcg/actuation aerosol shortness of breath or wheezing 90 inhaler (Symbicort) days #10.2 grams ondansetron 4 mg disintegrating 4 mg PO Q8H PRN nausea and 06/18/23 tablet vomiting 5 days #5 tabs pantoprazole 20 mg tablet,delayed 20 mg PO DAILY 4 weeks #28 tabs 06/18/23 release sucralfate 1 gram tablet 1 g PO BID 4 weeks #56 tabs 06/18/23 Allergies Allergy/AdvReac Type Severity Reaction Status Date / Time amoxicillin [From Augmentin] Allergy Verified 02/09/23 10:09 ceftriaxone [From Rocephin] Allergy Verified 02/09/23 10:09 clavulanic acid Allergy Verified 02/09/23 10:09 [From Augmentin] [facility] Disclaimer: The information contained in this section may have been updated after the patient was seen, as this information can be updated by other users. Medical History (Updated 06/18/23 @ 15:43 by Ajay Najera MD) CSA (central sleep apnea) [place] (obstructive sleep apnea) Dyspnea on exertion Wheezing without diagnosis of asthma Daytime somnolence Snoring Witnessed episode of apnea Gall stones Surgical History History of cholecystectomy H/O LEEP Family History Other Cancer of breast Mouth cancer Social History Smoking Status: Never smoker second hand exposure: Yes alcohol intake: never substance use type: denies use current occupational status: other Travel in the last 8 weeks: Inside the [place] household members: family housing: house 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 current occupational exposures/hazards: No caffeine: Yes ROS Obtained: Yes other As per HPI Physical Exam General General appearance: alert and in distress Head Head exam: atraumatic and normocephalic Eye Eye exam: Present normal appearance Neck Neck exam: Present normal inspection Chest Chest inspection: Present normal inspection and symmetric chest wall rise Respiratory Respiratory exam: Present normal lung sounds bilaterally; Absent respiratory distress Cardiovascular Cardiovascular exam: Present regular rate and normal rhythm Abdominal Exam Abdominal exam: Present soft Abdominal tenderness: Present RUQ, epigastrium and moderate Neurological Exam Neurological exam: Present alert and oriented X3 Psychiatric Psychiatric exam: Present normal affect and normal mood Skin Skin exam: Present warm and dry Medical Decision Making Medical Records Medical records reviewed: Yes I reviewed the patient's medical records. Herbert Inquiry Pt receiving controlled substance: No Vital Signs: 06/18/23 11:55 06/18/23 13:49 06/18/23 14:30 Temperature 97.8 F Temperature Source Oral Pulse Rate 125 H 112 H Pulse Rate [Right] 107 H Respiratory Rate 20 Blood Pressure 133/91 H 151/94 H Blood Pressure [Right Arm] 158/96 H Blood Pressure Mean Blood Pressure Mean [Right Arm] 116 Blood Pressure Source 02 Sat by Pulse Oximetry 96 100 94 L Oxygen Delivery Method Room Air Room Air Room Air 06/18/23 15:00 06/18/23 15:46 Temperature 97.8 F Temperature Source Oral Pulse Rate 102 H 110 H Pulse Rate [Right] Respiratory Rate 16 18 Blood Pressure 148/102 H 129/93 H Blood Pressure [Right Arm] Blood Pressure Mean 112 Blood Pressure Mean [Right Arm] Blood Pressure Source Automatic Cuff 02 Sat by Pulse Oximetry 96 Oxygen Delivery Method Room Air Lab Data Lab Results 06/18/23 11:52: WBC 17.6 H, RBC 5.06, Hgb 15.5, Hct 48.0 H, MCV 94.7, MCH 30.6, MCHC 32.4, RDW 14.4, Plt Count 320, MPV 7.8, Neut % (Auto) 89.1 H, Lymph % (Auto) 5.7 L, [place] % (Auto) 2.4, Eos % (Auto) 1.6, Baso % (Auto) 1.1, Neut # (Auto) 15.7 H, Lymph # (Auto) 1.0, [place] # (Auto) 0.4, Eos # (Auto) 0.3, Baso # (Auto) 0.2, Total Counted 100, Neutrophils % (Manual) 91 H, Lymphocytes % (Manual) 7 L, Monocytes % (Manual) 2, Platelet Estimate Normal, RBC Morphology Normal, Sodium 139, Potassium 5.0, Chloride 106, Carbon Dioxide 27, Anion Gap 11.0, BUN 15, Creatinine 0.70, Estimated Creat Clear 84, Estimated GFR 98, Est GFR ( Amer) 119, Glucose 112 H, Calcium 9.3, Troponin I < 0.01 06/18/23 11:56: Lipase 44, Serum HCG, Qual Negative 06/18/23 15:02: Troponin I < 0.01 06/18/23 11:52 06/18/23 11:52 Orders (Tests/Meds): ED MEDICATIONS Discontinued Medications Generic Name Dose Route Start Last Admin Trade Name Freq PRN Reason Stop Dose Admin Belladonna Alkaloids 60 ml 06/18/23 12:57 06/18/23 13:00 Belladonna Alkaloids 60 Ml Ml PO 06/18/23 12:58 60 ml ONCE ONE Administration Iopamidol 75 ml 06/18/23 14:11 06/18/23 14:13 Iopamidol-370 (76%);100ml Bottle IV 06/18/23 14:12 75 ml ONCE ONE Administration Ketorolac Tromethamine 15 mg 06/18/23 13:09 06/18/23 13:44 Ketorolac 30mg/Ml Vial IV 06/18/23 13:10 15 mg ONCE ONE Administration Sodium Chloride 10 ml 06/18/23 11:57 Sodium Chloride 0.9% 10ml Flush Syringe IV 07/18/23 11:56 NEEDED PRN Maintain IV Site Sodium Chloride 10 ml 06/18/23 14:11 06/18/23 14:13 Sodium Chloride 0.9% 10ml Syr (Rad Only) IV 07/18/23 14:10 10 ml NEEDED PRN Administration Maintain IV Site ORDERS Category Date Time Status CT abdomen pelvis w con Stat Cat Scan 06/18/23 13:09 Completed XR chest portable Stat Exams 06/18/23 11:57 Completed Basic Metabolic Panel Stat Lab 06/18/23 11:52 Completed Complete Blood Count Auto Diff Stat Lab 06/18/23 11:52 Completed HCG Qualitative, Serum Stat Lab 06/18/23 11:56 Completed Lipase Stat Lab 06/18/23 11:56 Completed Troponin I Q3H Lab 06/18/23 15:02 Completed Troponin I Stat Lab 06/18/23 11:52 Completed Medical Decision Narrative: Patient with history and exam per above presenting for evaluation of abdominal pain Diagnoses considered include gastritis, gastroenteritis, perforation, bowel obstruction, PUD, infectious diarrhea, among others ED workup and treatment included: ED MEDICATIONS Discontinued Medications Generic Name Dose Route Start Last Admin Trade Name Freq PRN Reason Stop Dose Admin Belladonna Alkaloids 60 ml 06/18/23 12:57 06/18/23 13:00 Belladonna Alkaloids 60 Ml Ml PO 06/18/23 12:58 60 ml ONCE ONE Administration Iopamidol 75 ml 06/18/23 14:11 06/18/23 14:13 Iopamidol-370 (76%);100ml Bottle IV 06/18/23 14:12 75 ml ONCE ONE Administration Ketorolac Tromethamine 15 mg 06/18/23 13:09 06/18/23 13:44 Ketorolac 30mg/Ml Vial IV 06/18/23 13:10 15 mg ONCE ONE Administration Sodium Chloride 10 ml 06/18/23 11:57 Sodium Chloride 0.9% 10ml Flush Syringe IV 07/18/23 11:56 NEEDED PRN Maintain IV Site Sodium Chloride 10 ml 06/18/23 14:11 06/18/23 14:13 Sodium Chloride 0.9% 10ml Syr (Rad Only) IV 07/18/23 14:10 10 ml NEEDED PRN Administration Maintain IV Site ORDERS Category Date Time Status CT abdomen pelvis w con Stat Cat Scan 06/18/23 13:09 Completed XR chest portable Stat Exams 06/18/23 11:57 Completed Basic Metabolic Panel Stat Lab 06/18/23 11:52 Completed Complete Blood Count Auto Diff Stat Lab 06/18/23 11:52 Completed HCG Qualitative, Serum Stat Lab 06/18/23 11:56 Completed Lipase Stat Lab 06/18/23 11:56 Completed Troponin I Q3H Lab 06/18/23 15:02 Completed Troponin I Stat Lab 06/18/23 11:52 Completed Labs were independently interpreted by me, significant for leukocytosis, troponins undetectable, lipase within normal limits Imaging was independently visualized and interpreted by me, significant for chest pain read is concerning for pneumonia, clinically correlated, and after reviewing CT imaging suspect artifact. CT imaging with no acute surgical pathology. Pplease, refer to radiology report for full details. My clinical impression at this time is most consistent with gastroenteritis from meal patient ate overnight prior to abrupt onset of symptoms. Patient reports improvement pain upon repeat evaluation. I discussed my clinical impression with patient and answered all questions. At this time, the evidence for any other entities in the differential is insufficient to warrant any further testing or ED observation. This was explained to the patient. The patient was advised that persistent or worsening symptoms require further evaluation. I confirmed the patient's understanding of this discussion. Critical Care Critical Care Time Critical Care Time: No
[2023-06-18 12:59] LABS: Lymphocytes % 7 % (10-50); Monocytes % 2 % (2-9); Neutrophils % 91 % (42-76); Platelet Estimate Normal; RBC Morphology Normal; Total Cells Counted 100
[2023-06-18] MEDS: BELLADONNA ALKALOIDS 60 ML ML PO (13:00)
--- NOTE | 2023-06-18 13:05 | PC.NURSE ---
DR AMEZCUA AT BEDSIDE
[2023-06-18 13:06] LABS: Lipase 44 U/L (23-300)
--- NOTE | 2023-06-18 13:09 | CT_ITS ---
PROCEDURE INFORMATION: Exam: CT Abdomen And Pelvis With Contrast Exam date and time: 06/18/2023 2:02 PM Age: 32 years old Clinical indication: Abdominal pain; Localized; Right upper quadrant (ruq); Additional info: Severe ruq abdominal pain TECHNIQUE: Imaging protocol: Computed tomography of the abdomen and pelvis with contrast. Radiation optimization: All CT scans at this facility use at least one of these dose optimization techniques: automated exposure control; mA and/or kV adjustment per patient size (includes targeted exams where dose is matched to clinical indication); or iterative reconstruction. Contrast material: ISOVUE; Contrast volume: 75 ml; Contrast route: IV; COMPARISON: CT ABDOMEN PELVIS W CON 08/14/2022 1:14 AM FINDINGS: Liver: Hepatomegaly 21 cm Gallbladder and bile ducts: The gallbladder is nonvisualized. Pancreas: Normal. No ductal dilation. Spleen: Normal. No splenomegaly. Adrenal glands: Normal. No mass. Kidneys and ureters: Normal. No hydronephrosis. Stomach and bowel: Multiple loops of jejunum with bowel wall thickening may represent enteritis including infectious and inflammatory etiologies.. Appendix: Normal appendix Intraperitoneal space: Unremarkable. No free air. No significant fluid collection. Vasculature: Unremarkable. No abdominal aortic aneurysm. Lymph nodes: Unremarkable. No enlarged lymph nodes. Urinary bladder: Unremarkable as visualized. Reproductive: Unremarkable as visualized. Bones/joints: Unremarkable. No acute fracture. Soft tissues: Unremarkable. IMPRESSION: Multiple loops of jejunum with bowel wall thickening may represent enteritis including infectious and inflammatory etiologies.. The gallbladder is not visualized
[2023-06-18 13:20] LABS: HCG Qualitative, Serum Negative (Negative)
[2023-06-18] MEDS: KETOROLAC 30MG/ML VIAL 15 MG IV (13:44)
[2023-06-18 13:49] VITALS: BP 133/91; PULSE 125; O2SAT 100
--- NOTE | 2023-06-18 13:57 | PC.NURSE ---
PT GONE TO RAD VIA CT
--- NOTE | 2023-06-18 14:09 | PC.NURSE ---
PT BACK FROM RAD
--- NOTE | 2023-06-18 14:10 | PC.NURSE ---
PT BACK FROM CT
[2023-06-18] MEDS: IOPAMIDOL-370 (76%);100ML BOTTLE 75 ML IV (14:13)
[2023-06-18] MEDS: SODIUM CHLORIDE 0.9% 10ML SYR (RAD ONLY) 10 ML IV (14:13)
[2023-06-18 14:30] VITALS: BP 151/94; PULSE 112; O2SAT 94
[2023-06-18 15:00] VITALS: BP 148/102; PULSE 102; RESP 16; O2SAT 96
[2023-06-18 15:42] LABS: Troponin I < 0.01 ng/ml (0.00-0.034)
[2023-06-18 15:46] VITALS: BP 129/93; PULSE 110; RESP 18; TEMP 36.6; O2SAT 97
== END 2023-06-18 15:51 | disposition home or self-care (01) ==
PROVIDERS: Emergency Provider Emergency Medicine
DX: R10.13 Epigastric pain (principal); K52.9 Noninfective gastroenteritis and colitis, unspecified; R11.2 Nausea with vomiting, unspecified; R00.0 Tachycardia, unspecified
CPT/HCPCS: 36415; 71045; 74177; 80048; 83690; 84484; 84703; 85007; 85025; 93005; 96374; 99285; Q9967

== ENCOUNTER 2023-08-09 08:23 | Emergency (ER) | payer OTHER, SELFPAY ==
[2023-08-09 08:30] VITALS: BP 153/92; PULSE 90; RESP 22; TEMP 36.7; O2SAT 100; BMI 64.6
--- NOTE | 2023-08-09 08:41 | EXP.UTC ---
Discharge Plan Disposition Patient Disposition: Home, Self-Care Condition: Good Prescriptions Prescriptions: New azithromycin 500 mg tablet See Rx Instructions .ROUTE .COMPLEX Qty: 3 0RF Rx Instructions: For 500 mg dose pack: take 500 mg once daily for 3 days No Action fluticasone propionate 50 mcg/actuation spray,suspension 2 spray intranasal DAILY Rx Instructions: administer into each nostril loratadine [Claritin] 10 mg tablet 10 mg PO DAILY budesonide-formoterol [Symbicort] 160-4.5 mcg/actuation HFA aerosol inhaler 1 puff inhalation QID PRN (Reason: shortness of breath or wheezing) 90 Days Qty: 10.2 3RF Referrals Follow up/Referrals: Mega Reynolds MD [Primary Care Provider] - See instructions Clinical Impressions Clinical Impression: Strep throat Stand Alone Forms Stand Alone Forms: Work/School Release Instructions Patient Instructions: DI for Strep Throat Discharge ED Provider: Roseanna Villagran [facility] [place] HPI General Stated complaint: sore throat, body aches, chills Time Seen by Provider: 08/09/23 08:40 History of Present Illness Provider Complaint: Pt reports that all in her friend group have been sick and the one that went to the doctor had strep. Pt states that she started feeling bad last night with fever, chills, body aches, and sore throat. She has not taken anything for her symptoms. Related Data Home Medications Medication Instructions Recorded Confirmed fluticasone propionate 50 2 spray intranasal DAILY 12/23/22 08/09/23 mcg/actuation nasal spray,suspension loratadine 10 mg tablet (Claritin) 10 mg PO DAILY 12/23/22 08/09/23 Previous Rx's Medication Instructions Recorded budesonide-formoterol HFA 160 1 puff inhalation QID PRN 12/27/22 mcg-4.5 mcg/actuation aerosol shortness of breath or wheezing 90 inhaler (Symbicort) days #10.2 grams azithromycin 500 mg tablet See Rx Instructions PO .COMPLEX #3 08/09/23 tabs Allergies Allergy/AdvReac Type Severity Reaction Status Date / Time amoxicillin [From Augmentin] Allergy Verified 07/26/23 11:29 ceftriaxone [From Rocephin] Allergy Verified 07/26/23 11:29 clavulanic acid Allergy Verified 07/26/23 11:29 [From Augmentin] [facility] Disclaimer: The information contained in this section may have been updated after the patient was seen, as this information can be updated by other users. Medical History (Updated 08/09/23 @ 08:54 by Roseanna Villagran APRN) Asthma CSA (central sleep apnea) [place] (obstructive sleep apnea) Dyspnea on exertion Wheezing without diagnosis of asthma Daytime somnolence Snoring Witnessed episode of apnea Gall stones Surgical History History of cholecystectomy H/O LEEP Family History Other Cancer of breast Mouth cancer Social History Smoking Status: Current some day smoker tobacco type: cigarettes packs per day: 1 second hand exposure: Yes alcohol intake: never substance use type: denies use current occupational status: other Travel in the last 8 weeks: None household members: family housing: house 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 current occupational exposures/hazards: No caffeine: Yes ROS Obtained: Yes All systems reviewed & no additional complaints except as documented Constitutional Constitutional: Reports system reviewed and no additional complaints, except as documented, Reports body ache, Reports chills, Reports fever(s) and Reports malaise Eyes Eyes: Reports system reviewed and no additional complaints, except as documented ENT Ears, Nose, Mouth, and Throat: Reports system reviewed and no additional complaints, except as documented and Reports sore throat Cardiovascular Cardiovascular: Reports system reviewed and no additional complaints, except as documented Respiratory Respiratory: Reports system reviewed and no additional complaints, except as documented Gastrointestinal Gastrointestingal: Reports system reviewed and no additional complaints, except as documented Genitourinary Female Genitourinary: Reports system reviewed and no additional complaints, except as documented Musculoskeletal Musculoskeletal: Reports system reviewed and no additional complaints, except as documented Integumentary/Breasts Skin/Breast: Reports system reviewed and no additional complaints, except as documented Neurologic Neurologic: Reports system reviewed and no additional complaints, except as documented Endocrine Endocrine: Reports system reviewed and no additional complaints, except as documented Hematologic/Lymphatic Henatologic/Lymphatic: Reports system reviewed and no additional complaints, except as documented Allergic/Immunologic Allergic/Immunologic: Reports system reviewed and no additional complaints, except as documented Physical Exam General General appearance: alert Comment: ill appearing Head Head exam: atraumatic and normocephalic Eye Eye exam: Present normal appearance Expanded ENT Exam External ear exam: Present normal external inspection Nose exam: Absent sinus tenderness Nasal speculum exam: Bilateral: normal Mouth exam: Present normal external inspection Teeth exam: Present normal inspection Throat exam: Present tonsillar erythema Neck Neck exam: Present normal inspection Chest Chest inspection: Present normal inspection and symmetric chest wall rise Respiratory Respiratory exam: Present normal lung sounds bilaterally Cardiovascular Cardiovascular exam: Present regular rate and normal rhythm Abdominal Exam Abdominal exam: Present soft and normal bowel sounds Extremities Exam Extremities exam: Present normal inspection Back Exam Back exam: Present normal inspection Neurological Exam Neurological exam: Present alert and oriented X3 Psychiatric Psychiatric exam: Present normal affect and normal mood Skin Skin exam: Present warm, dry and intact Lymphatic Lymphatic Findings: no adenopathy Medical Decision Making Herbert Inquiry Pt receiving controlled substance: No Herbert was queried for this patient: No
[2023-08-09 08:51] VITALS: BP 132/94; PULSE 90; RESP 22; TEMP 36.7; O2SAT 100
[2023-08-09 08:51] LABS: UTC Strep Screen (Rapid) Positive (Negative)
== END 2023-08-09 08:57 | disposition home or self-care (01) ==
PROVIDERS: Emergency Provider Nurse Practitioner Family; PCP Family Medicine
DX: J02.0 Streptococcal pharyngitis (principal); R07.0 Pain in throat; R50.9 Fever, unspecified; F17.210 Nicotine dependence, cigarettes, uncomplicated
CPT/HCPCS: 87880; 99212; 99214; G0463

== ENCOUNTER 2023-12-22 09:32 | Emergency (ER) | payer OTHER, SELFPAY ==
[2023-12-22 09:48] VITALS: BP 123/75; PULSE 100; RESP 20; TEMP 36.8; O2SAT 96; BMI 62.4
--- NOTE | 2023-12-22 09:50 | ED_ITS ---
Discharge Plan Disposition Patient Disposition: Home, Self-Care Condition: Good Prescriptions Prescriptions: New azithromycin [Zithromax] 250 mg tablet 250 mg PO UD DOSE PK Qty: 6 0RF Rx Instructions: Take two (2) tablets today, then one (1) tablet days #2 thru #5 benzonatate 100 mg capsule 100 mg PO TIDP PRN (Reason: Cough) Qty: 30 0RF methylprednisolone 4 mg Tablets,Dose Pack 4 mg PO DIRECTED 6 Days Qty: 21 0RF Rx Instructions: Take 1 pack as directed for 6 days No Action fluticasone propionate 50 mcg/actuation spray,suspension 2 spray intranasal DAILY Rx Instructions: administer into each nostril loratadine [Claritin] 10 mg tablet 10 mg PO DAILY budesonide-formoterol [Symbicort] 160-4.5 mcg/actuation HFA aerosol inhaler 2 puff inhalation BID 90 Days Qty: 10.2 3RF nicotine (polacrilex) 2 mg gum 2 mg buccal Q2H PRN (Reason: nicotine cravings) Qty: 396 0RF Rx Instructions: Weeks 1 to 6: Chew 1 piece every 2 hours As NEEDED Weeks 7 to 9: Chew 1 piece every 4 hors As NEEDED Weeks 1o to 12: Chew 1 piece every 8 hours As NEEDED Referrals Follow up/Referrals: Mega Reynolds MD [Primary Care Provider] - See instructions Activity Restrictions/Add. Instructions Additional Instructions/Restrictions: Drink plenty of fluids. Take tylenol or ibuprofen for pain or fever. Take the medications as directed. Follow up with your regular doctor. GO TO THE ER FOR ANY WORSENING SYMPTOMS Clinical Impressions Clinical Impression: Bronchitis Sinusitis Qualifiers: Sinusitis location: unspecified location Chronicity: unspecified Qualified Code(s): J32.9 - Chronic sinusitis, unspecified Instructions Patient Instructions: Sinusitis, DI for Sinusitis, Methylprednisolone, Azithromycin Print Language Print Language: Ukrainian Discharge ED Provider: Jerry Weber [facility] General Stated complaint: sneezing, head/chest congestion, Mode of Arrival: Ambulatory Source of Information: Patient Time Seen by Provider: 12/22/23 09:50 Description of Symptoms (Recalled from Triage Doc. by RN): HEAD AND CHEST CONGESTION HEENT Symptoms (Recalled from RN notes): Yes Resp Symptoms (Recalled from RN notes): Yes Skin Symptoms (Recalled from RN notes): No MS Symptoms (Recalled from RN notes): No Functional Status (Recalled from RN notes): WNL Related Data Home Medications ?Medication ?Instructions ?Recorded ?Confirmed fluticasone propionate 50 2 spray intranasal DAILY 12/23/22 08/09/23 mcg/actuation nasal spray,suspension loratadine 10 mg tablet (Claritin) 10 mg PO DAILY 12/23/22 08/09/23 Previous Rx's ?Medication ?Instructions ?Recorded budesonide-formoterol HFA 160 2 puff inhalation BID shortness of 10/27/23 mcg-4.5 mcg/actuation aerosol breath or wheezing 90 days #10.2 inhaler (Symbicort) grams nicotine (polacrilex) 2 mg gum 2 mg buccal Q2H PRN nicotine 10/27/23 cravings #396 ea azithromycin 250 mg tablet 250 mg PO UD DOSE PK #6 tabs 12/22/23 (Zithromax) benzonatate 100 mg capsule 100 mg PO TIDP PRN Cough #30 caps 12/22/23 methylprednisolone 4 mg tablets in 4 mg PO DIRECTED 6 days #21 tabs 12/22/23 a dose pack Allergies Allergy/AdvReac Type Severity Reaction Status Date / Time amoxicillin [From Augmentin] Allergy Verified 10/27/23 11:42 ceftriaxone [From Rocephin] Allergy Verified 10/27/23 11:42 clavulanic acid Allergy Verified 10/27/23 11:42 [From Augmentin] Worker's Comp Is this a Worker's Comp case?: No [facility] Disclaimer: The information contained in this section may have been updated after the patient was seen, as this information can be updated by other users. 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 current occupational exposures/hazards: No caffeine: Yes ROS Obtained: Yes All systems reviewed & no additional complaints except as documented Constitutional Constitutional: Reports poor appetite Eyes Eyes: Reports system reviewed and no additional complaints, except as documented ENT Ears, Nose, Mouth, and Throat: Reports as per HPI Cardiovascular Cardiovascular: Reports system reviewed and no additional complaints, except as documented and Denies chest pain Respiratory Respiratory: Denies shortness of breath, Reports chest congestion, Reports cough, Denies stridor and Denies wheezing Gastrointestinal Gastrointestingal: Reports system reviewed and no additional complaints, except as documented; Denies abdominal pain, diarrhea or vomiting Musculoskeletal Musculoskeletal: Reports system reviewed and no additional complaints, except as documented and Denies arthralgias Integumentary/Breasts Skin/Breast: Reports system reviewed and no additional complaints, except as documented and Denies rash Neurologic Neurologic: Denies paresthesias Allergic/Immunologic Allergic/Immunologic: Denies wheezing Physical Exam General General appearance: alert and in no apparent distress Eye Eye exam: Present normal appearance, PERRL and EOMI ENT ENT exam: Present mucous membranes moist and normal external ear exam Expanded ENT Exam External ear exam: Present normal external inspection TM/Canal exam: Bilateral TM: erythema and bulging Nose exam: Absent sinus tenderness Nasal speculum exam: Bilateral: normal Mouth exam: Present normal external inspection; Absent drooling Teeth exam: Present normal inspection Throat exam: Present tonsillar erythema and tonsillomegaly Neck Neck exam: Present normal inspection, full ROM and trachea midline; Absent tenderness, lymphadenopathy or thyromegaly Chest Chest inspection: Present normal inspection and symmetric chest wall rise; Absent tenderness or rash Respiratory Respiratory exam: Present normal lung sounds bilaterally; Absent respiratory distress, wheezes, stridor or accessory muscle use Cardiovascular Cardiovascular exam: Present regular rate, normal rhythm and normal heart sounds Abdominal Exam Abdominal exam: Present soft; Absent distention, tenderness, guarding, rebound or rigidity Extremities Exam Extremities exam: Present normal inspection, full ROM and normal capillary refill; Absent tenderness or calf tenderness Back Exam Back exam: Present normal inspection and full ROM; Absent tenderness Neurological Exam Neurological exam: Present alert and oriented X3 Psychiatric Psychiatric exam: Present normal affect and normal mood Skin Skin exam: Present warm, dry, intact and normal color Lymphatic Lymphatic Findings: no adenopathy Medical Decision Making Medical Records Medical records reviewed: No I reviewed the patient's medical records. Screening: Per USPSTF and CDC recommendations, given the prevalence of disease in our region, it is our hospital?s policy to screen for HIV and viral Hepatitis for all patients aged 18 and over and those with ongoing risk factors. Herbert Inquiry Pt receiving controlled substance: No Vital Signs: 12/22/23 09:48 Temperature 98.3 F Temperature Source Oral Pulse Rate [Left Brachial] 100 H Respiratory Rate 20 Blood Pressure [Left Arm] 123/75 Blood Pressure Mean [Left Arm] 91 02 Sat by Pulse Oximetry 96 Lab Data Lab results reviewed: Yes I reviewed the patient's lab results.
[2023-12-22 10:11] VITALS: BP 123/75; PULSE 100; RESP 20; TEMP 36.8
== END 2023-12-22 10:14 | disposition home or self-care (01) ==
PROVIDERS: Emergency Provider Nurse Practitioner Family; PCP Family Medicine
DX: J40 Bronchitis, not specified as acute or chronic (principal)
CPT/HCPCS: 99212; G0381

== ENCOUNTER 2024-01-14 19:00 | Emergency (ER) | payer OTHER, SELFPAY ==
--- NOTE | 2024-01-14 19:10 | EXP.UTC ---
Discharge Plan Prescriptions Prescriptions: New clindamycin HCl 300 mg capsule 300 mg PO Q8H 7 Days Qty: 21 0RF sulfamethoxazole-trimethoprim [Bactrim DS] 800-160 mg Tablet 1 tab PO BID 7 Days Qty: 14 0RF mupirocin 2 % ointment 1 applic topical TID 7 Days Qty: 15 0RF No Action fluticasone propionate 50 mcg/actuation spray,suspension 2 spray intranasal DAILY Rx Instructions: administer into each nostril loratadine [Claritin] 10 mg tablet 10 mg PO DAILY budesonide-formoterol [Symbicort] 160-4.5 mcg/actuation HFA aerosol inhaler 2 puff inhalation BID 90 Days Qty: 10.2 3RF Referrals Follow up/Referrals: Mega Reynolds MD [Primary Care Provider] - See instructions Activity Restrictions/Add. Instructions Additional Instructions/Restrictions: Keep the wound clean and dry. Watch the wound for signs of infection, such as redness, swelling, drainage, fever. etc. Take tylenol or ibuprofen for pain. Follow up with your regular doctor. GO TO THE ER FOR ANY WORSENING SYMPTOMS OR CONCERNS. Clinical Impressions Clinical Impression: Acute viral syndrome, Dog bite, Cellulitis, Need for Tdap vaccination Instructions Patient Instructions: Cellulitis, Tetanus, Diphtheria, and Pertussis Vaccine, Clindamycin Print Language Print Language: Qatari Discharge ED Provider: Jerry Weber [facility] General Stated complaint: dizzy, BOWLING Time Seen by Provider: 01/14/24 19:09 History of Present Illness Provider Complaint: She states that she has felt bad since yesterday. She has had malaise, fatigue and some intermittent dizziness. She denies documented fever. She denies any congestion and cough. She also has a dog bite on her left breast. She states that is happened 4 days ago. She did not seek treatment because it was her friend's dog and she knew the dog had had all its immunizations. She states that now the bite area has a small amount of redness surrounding it. She denies any drainage from the wound. Related Data Home Medications ?Medication ?Instructions ?Recorded ?Confirmed fluticasone propionate 50 2 spray intranasal DAILY 12/23/22 01/14/24 mcg/actuation nasal spray,suspension loratadine 10 mg tablet (Claritin) 10 mg PO DAILY 12/23/22 01/14/24 Previous Rx's ?Medication ?Instructions ?Recorded budesonide-formoterol HFA 160 2 puff inhalation BID shortness of 10/27/23 mcg-4.5 mcg/actuation aerosol breath or wheezing 90 days #10.2 inhaler (Symbicort) grams clindamycin HCl 300 mg capsule 300 mg PO Q8H 7 days #21 caps 01/14/24 mupirocin 2 % topical ointment 1 applic topical TID 7 days #15 01/14/24 grams sulfamethoxazole 800 1 tab PO BID 7 days #14 tabs 01/14/24 mg-trimethoprim 160 mg tablet (Bactrim DS) Allergies Allergy/AdvReac Type Severity Reaction Status Date / Time amoxicillin (From Augmentin) Allergy Verified 10/27/23 11:42 ceftriaxone (From Rocephin) Allergy Verified 10/27/23 11:42 clavulanic acid (From Allergy Verified 10/27/23 11:42 Augmentin) [facility] Disclaimer: The information contained in this section may have been updated after the patient was seen, as this information can be updated by other users. 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 current occupational exposures/hazards: No caffeine: Yes ROS Obtained: Yes All systems reviewed & no additional complaints except as documented Constitutional Constitutional: Reports as per HPI, Denies chills and Denies fever(s) Eyes Eyes: Denies eye discharge ENT Ears, Nose, Mouth, and Throat: Denies dizziness, Denies otalgia and Denies sore throat Cardiovascular Cardiovascular: Denies chest pain Respiratory Respiratory: Denies shortness of breath, Denies chest congestion, Denies cough, Denies stridor and Denies wheezing Gastrointestinal Gastrointestingal: Denies nausea or vomiting Musculoskeletal Musculoskeletal: Reports system reviewed and no additional complaints, except as documented and Denies arthralgias Integumentary/Breasts Skin/Breast: Reports as per HPI Neurologic Neurologic: Denies dizziness and Denies paresthesias Allergic/Immunologic Allergic/Immunologic: Denies wheezing Physical Exam General General appearance: alert and in no apparent distress Head Head exam: atraumatic, normocephalic and normal inspection Eye Eye exam: Present normal appearance, PERRL and EOMI ENT ENT exam: Present normal exam, normal oropharynx, mucous membranes moist, TM's normal bilaterally and normal external ear exam Neck Neck exam: Present normal inspection, full ROM and trachea midline; Absent meningismus or lymphadenopathy Chest Chest inspection: Present normal inspection and symmetric chest wall rise; Absent tenderness Respiratory Respiratory exam: Present normal lung sounds bilaterally; Absent respiratory distress Cardiovascular Cardiovascular exam: Present regular rate and normal rhythm; Absent JVD Abdominal Exam Abdominal exam: Present soft and normal bowel sounds; Absent distention, tenderness or guarding Extremities Exam Extremities exam: Present normal inspection, full ROM and normal capillary refill; Absent calf tenderness Back Exam Back exam: Present normal inspection; Absent tenderness Neurological Exam Neurological exam: Present alert and oriented X3 Psychiatric Psychiatric exam: Present normal affect and normal mood Skin Skin exam: Present other (there are 3 linear abrasions on her left breast. there is mild edema surrounding the wounds, no drainage, no induration. ) Lymphatic Lymphatic Findings: no adenopathy Medical Decision Making Medical Records Medical records reviewed: No I reviewed the patient's medical records. Screening: Per USPSTF and CDC recommendations, given the prevalence of disease in our region, it is our hospital?s policy to screen for HIV and viral Hepatitis for all patients aged 18 and over and those with ongoing risk factors. Herbert Inquiry Pt receiving controlled substance: No Lab Data Lab results reviewed: Yes I reviewed the patient's lab results.
[2024-01-14 19:14] VITALS: BP 157/102; PULSE 104; RESP 18; TEMP 37.3; O2SAT 98; BMI 62.4
[2024-01-14 19:37] LABS: UTC Influenza A Antigen Negative (Negative); UTC Influenza B Antigen Negative (Negative)
[2024-01-14] MEDS: TET/DIPHTH/PERT-ADULT 0.5ML SYRINGE 0.5 ML IM (20:04)
[2024-01-14 20:13] VITALS: BP 152/102; PULSE 104; RESP 18; TEMP 37.3
== END 2024-01-14 20:14 | disposition home or self-care (01) ==
PROVIDERS: Emergency Provider Nurse Practitioner Family; PCP Family Medicine
DX: B34.9 Viral infection, unspecified (principal); L03.313 Cellulitis of chest wall; W54.0XXA Bitten by dog, initial encounter
CPT/HCPCS: 87635; 87804; 90471; 90715; 99213; G0381

== ENCOUNTER 2024-01-31 12:19 | Emergency (ER) | payer OTHER, SELFPAY ==
[2024-01-31 12:20] VITALS: BP 141/80; PULSE 109; RESP 16; TEMP 36.8; O2SAT 98; BMI 62.4
--- NOTE | 2024-01-31 12:25 | ED_ITS ---
<Statement entered by Alexus Nguyễn MD - 01/31/24 15:01> I was consulted by the LISSETT, and we discussed the complexity of the problems being addressed. I approved the treatment and management plan for this patient's care in the emergency department, thus performing a substantive portion of the medical decision making. Alexus Nguyễn MD, DIEGO, FACEP Discharge Plan Disposition Patient Disposition: Home, Self-Care Condition: Good Prescriptions Prescriptions: No Action fluticasone propionate 50 mcg/actuation spray,suspension 2 spray intranasal DAILY Rx Instructions: administer into each nostril loratadine [Claritin] 10 mg tablet 10 mg PO DAILY budesonide-formoterol [Symbicort] 160-4.5 mcg/actuation HFA aerosol inhaler 2 puff inhalation BID 90 Days Qty: 10.2 3RF clindamycin HCl 300 mg capsule 300 mg PO Q8H 7 Days Qty: 21 0RF sulfamethoxazole-trimethoprim [Bactrim DS] 800-160 mg Tablet 1 tab PO BID 7 Days Qty: 14 0RF mupirocin 2 % ointment 1 applic topical TID 7 Days Qty: 15 0RF Referrals Follow up/Referrals: Mega Reynolds MD [Primary Care Provider] - See instructions Activity Restrictions/Add. Instructions Additional Instructions/Restrictions: As we discussed please continue taking Tylenol alternating every 4 hours with Motrin for your symptoms. Follow-up with your PCP if you have no improvement or worsening signs or symptoms or return to the ER as needed. Clinical Impressions Clinical Impression: Acute viral syndrome Instructions Patient Instructions: DI for Viral Syndrome Print Language Print Language: Austrian Discharge ED Provider: Valeriano Prescott General Adult HPI <YARELIS Garcia - Last Filed: 01/31/24 17:27> General Chief complaint: Upper Respiratory Infection Stated complaint: headache fever body aches kidney pain Time Seen by Provider: 01/31/24 12:25 History of Present Illness HPI narrative: Patient presents for headaches and bodyaches self-reported fever and bilateral flank pain. Patient states that her symptoms began yesterday and have progressed. She has taken Tylenol and Motrin without relief of her symptoms. She denies any focal neurologic deficits she is not on her period denies any dysuria but states her back hurts more when she tries to pee. She is passing stool and flatus.. She denies chest pain shortness of breath hemoptysis hematochezia melena emesis hematuria. Related Data Home Medications ?Medication ?Instructions ?Recorded ?Confirmed fluticasone propionate 50 2 spray intranasal DAILY 12/23/22 01/14/24 mcg/actuation nasal spray,suspension loratadine 10 mg tablet (Claritin) 10 mg PO DAILY 12/23/22 01/14/24 Previous Rx's ?Medication ?Instructions ?Recorded budesonide-formoterol HFA 160 2 puff inhalation BID shortness of 10/27/23 mcg-4.5 mcg/actuation aerosol breath or wheezing 90 days #10.2 inhaler (Symbicort) grams clindamycin HCl 300 mg capsule 300 mg PO Q8H 7 days #21 caps 01/14/24 mupirocin 2 % topical ointment 1 applic topical TID 7 days #15 01/14/24 grams sulfamethoxazole 800 1 tab PO BID 7 days #14 tabs 01/14/24 mg-trimethoprim 160 mg tablet (Bactrim DS) Allergies Allergy/AdvReac Type Severity Reaction Status Date / Time amoxicillin (From Augmentin) Allergy Verified 10/27/23 11:42 ceftriaxone (From Rocephin) Allergy Verified 10/27/23 11:42 clavulanic acid (From Allergy Verified 10/27/23 11:42 Augmentin) [facility] <YARELIS Garcia - Last Filed: 01/31/24 17:27> [facility] Disclaimer: The information contained in this section may have been updated after the patient was seen, as this information can be updated by other users. 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 current occupational exposures/hazards: No caffeine: Yes Other Medical History Have you received the Flu Vaccine for this season: No Have you received the Pneumonia Vaccine: No <YARELIS Garcia - Last Filed: 01/31/24 17:27> ROS Obtained: Yes Systems reviewed as appropriate & no additional complaints except as documented Physical Exam <YARELIS Garcia - Last Filed: 01/31/24 17:27> General General appearance: alert and in no apparent distress Eye Eye exam: Present PERRL and EOMI (And nonpainful) ENT ENT exam: Present mucous membranes moist; Absent normal oropharynx (Patient has an erythematous posterior pharynx however there is no exudate or tonsillar hyperplasia) Neck Neck exam: Present normal inspection, full ROM and trachea midline; Absent tenderness or lymphadenopathy Respiratory Respiratory exam: Present normal lung sounds bilaterally; Absent respiratory distress, wheezes or accessory muscle use Cardiovascular Cardiovascular exam: Present tachycardia Abdominal Exam Abdominal exam: Present soft and normal bowel sounds; Absent tenderness, guarding, rebound or rigidity Back Exam Back exam: Absent CVA tenderness (R) or CVA tenderness (L) Neurological Exam Neurological exam: Present alert, oriented X3, CN II-XII intact and normal gait; Absent motor sensory deficit Medical Decision Making <YARELIS Garcia - Last Filed: 01/31/24 17:27> Medical Records Medical records reviewed: Yes I reviewed the patient's medical records. Screening: Per USPSTF and CDC recommendations, given the prevalence of disease in our region, it is our hospital?s policy to screen for HIV and viral Hepatitis for all patients aged 18 and over and those with ongoing risk factors. Herbert Inquiry Pt receiving controlled substance: No Vital Signs: 01/31/24 12:20 01/31/24 16:47 Temperature 98.3 F 98.3 F Temperature Source Oral Oral Pulse Rate 90 Pulse Rate [Radial] 109 H Respiratory Rate 16 18 Blood Pressure 135/78 Blood Pressure [Right Arm] 141/80 H Blood Pressure Mean [Right Arm] 100 Blood Pressure Source Automatic Cuff Blood Pressure Source [Right Arm] Automatic Cuff Blood Pressure Position Sitting Blood Pressure Position [Right Arm] Sitting 02 Sat by Pulse Oximetry 98 Oxygen Delivery Method Room Air Room Air Lab Data Lab results reviewed: Yes I reviewed the patient's lab results. Lab Results 01/31/24 12:26: Urine Color Yellow, Urine Appearance Sl cloudy, Urine pH 6.0, Ur Specific [place] 1.025, Urine Protein Negative, Urine Glucose (UA) Negative, Urine Ketones Negative, Urine Blood 1+ A, Urine Nitrate Negative, Urine Bilirubin Negative, Urine Urobilinogen 0.2, Ur Leukocyte Esterase Negative, Urine RBC Occasional, Urine WBC None, Ur Squamous Epith Cells 3-5, Urine Bacteria None, Urine HCG, Qual Negative 01/31/24 12:41: WBC 14.9 H, RBC 4.75, Hgb 14.6, Hct 43.0, MCV 90.6, MCH 30.8, MCHC 34.0, RDW 14.1, Plt Count 243, MPV 8.0, Neut % (Auto) 81.4 H, Lymph % (Auto) 13.7, [place] % (Auto) 3.0, Eos % (Auto) 1.3, Baso % (Auto) 0.6, Neut # (Auto) 12.2 H, Lymph # (Auto) 2.1, [place] # (Auto) 0.5, Eos # (Auto) 0.2, Baso # (Auto) 0.1, Sodium 137, Potassium 3.9, Chloride 106, Carbon Dioxide 26, Anion Gap 8.9, BUN 13, Creatinine 0.70, Estimated Creat Clear 84, Estimated GFR 98, Est GFR ( Amer) 118, Glucose 94, Calcium 8.7, Total Bilirubin 0.9, AST 32, ALT 34, Alkaline Phosphatase 82, Total Protein 7.1, Albumin 4.2, Globulin 2.9, Albumin/Globulin Ratio 1.4, Lipase 32, Procalcitonin 0.137, Chlamy pneumoniae PCR Not detected, Adenovirus (PCR) Not detected, B. pertussis DNA (PCR) Not detected, Coronavirus OC43 (PCR) Not detected, Coronavirus HKU1 (PCR) Not detected, Coronavirus 229E (PCR) Not detected, SARS-CoV-2 (PCR) Not detected, Coronavirus NL63 (PCR) Not detected, HIV 1&2 Antibody Rapid Nonreactive, Human Metapneumovir PCR Not detected, Influenza A (H1) PCR Not detected, Influ A (H1N1/09) PCR Not detected, Influenza A (H3) PCR Not detected, Influenza Type A (PCR) Not detected, Influenza Type B (PCR) Not detected, M. pneumoniae (PCR) Not detected, Parainfluenza 1 (PCR) Not detected, Parainfluenza 2 (PCR) Not detected, Parainfluenza 3 (PCR) Not detected, Parainfluenza 4 (PCR) Not detected, RSV (PCR) Not detected, Entero/Rhino (PCR) Not detected, Group A Strep Rapid Negative 01/31/24 12:41 01/31/24 12:41 Orders (Tests/Meds): ED MEDICATIONS Discontinued Medications Generic Name Dose Route Start Last Admin Trade Name Freq PRN Reason Stop Dose Admin Acetaminophen 1,000 mg 01/31/24 12:32 01/31/24 12:51 Acetaminophen 1,000mg/100ml Vial IV 01/31/24 12:33 1,000 mg ONCE ONE Administration Diphenhydramine HCl 50 mg 01/31/24 12:32 01/31/24 12:51 Diphenhydramine 50mg/Ml Vial IV 01/31/24 12:33 50 mg ONCE ONE Administration Sodium Chloride 1,000 mls @ 999 mls/hr 01/31/24 12:32 01/31/24 13:08 Sod Chlor 0.9% 1000ml Bag IV 01/31/24 13:32 999 mls/hr .Q1H1M ONE Administration Iopamidol 75 ml 01/31/24 13:42 01/31/24 13:43 Iopamidol-370 (76%);100ml Bottle IV 01/31/24 13:43 75 ml ONCE ONE Administration Methocarbamol 500 mg 01/31/24 12:32 01/31/24 13:08 Methocarbamol 500mg Tablet PO 01/31/24 12:33 500 mg ONCE ONE Administration Prochlorperazine Edisylate 10 mg 01/31/24 12:32 01/31/24 12:51 Prochlorperazine 10mg/2ml Vial IV 01/31/24 12:33 10 mg ONCE ONE Administration Sodium Chloride 10 ml 01/31/24 13:42 01/31/24 13:43 Sodium Chloride 0.9% 10ml Syr (Rad Only) IV 01/31/24 13:43 10 ml ONCE ONE Administration ORDERS Category Date Time Status CT abdomen pelvis w con Stat Cat Scan 01/31/24 13:28 Completed CBC w/Auto Diff [Complete Blood Count Auto Diff] Stat Lab 01/31/24 12:41 Completed CMP [Comprehensive Metabolic Panel] Stat Lab 01/31/24 12:41 Completed Full Resp Panel w/COVID ([facility]) Routine Lab 01/31/24 12:41 Completed HIV (1&2) Antibody Rapid Stat Lab 01/31/24 12:41 Completed Hep C Ab with Reflex to RNA Stat Lab 01/31/24 12:41 Received Lipase Stat Lab 01/31/24 12:41 Completed Procalcitonin Stat Lab 01/31/24 12:41 Completed Rapid Strep Scrn Group A [Strep Scrn Group A (Rapid)] Lab 01/31/24 12:41 Completed Stat UA [Urinalysis and Microscopic] Stat Lab 01/31/24 12:26 Completed Urine , HCG Qual. Stat Lab 01/31/24 12:26 Completed Strep Screen Confirmation Stat Micro 01/31/24 12:41 Received Medical Decision Narrative: In summary patient is a 33-year-old female who presents to the emergency department for evaluation of headache body aches self-reported fever bilateral flank pain. Patient is initially normotensive at 141/80 with a heart rate of 109 breathing 16 times a minute satting at 98% on room air upon arrival, with a temperature of 98.3 currently. Physical exam is remarkable for nasal congestion normal bilateral tympanic membranes posterior oropharynx erythema without exudate or visible postnasal drip, breath sounds are clear and equal bilaterally to the bases. There is no increased work of breathing. Patient has a benign abdominal exam with no rebound or guarding or rigidity and normal bowel sounds. Patient is negative for CVA tenderness to percussion bilaterally. Patient has no nuchal rigidity. Alsen Coma Score is 15 patient is awake alert and oriented to person place and circumstance and retains capacity for decision making.. Differential diagnosis includes viral or bacterial infection versus pyelonephritis or complicated urinary tract infection etc. Initial workup will be conducted with hematologic labs full respiratory swab urinalysis CT scan of the abdomen pelvis. Initial interventions include crystalloid bolus Toradol Tylenol Benadryl Compazine Robaxin. Initial workup reviewed by me shows that her hematologic labs are nonactionable and my informed interpretation of her CT imaging shows no acute processes.. Upon repeat evaluation patient actually felt subjectively better and was actually sleeping on reevaluation.. Given this patient is appropriate for discharge with recommendations for continued Tylenol Motrin for symptoms and strict return precautions. <Valeriano Prescott MD - Last Filed: 01/31/24 18:25> Vital Signs: 01/31/24 12:20 01/31/24 16:47 Temperature 98.3 F 98.3 F Temperature Source Oral Oral Pulse Rate 90 Pulse Rate [Radial] 109 H Respiratory Rate 16 18 Blood Pressure 135/78 Blood Pressure [Right Arm] 141/80 H Blood Pressure Mean [Right Arm] 100 Blood Pressure Source Automatic Cuff Blood Pressure Source [Right Arm] Automatic Cuff Blood Pressure Position Sitting Blood Pressure Position [Right Arm] Sitting 02 Sat by Pulse Oximetry 98 Oxygen Delivery Method Room Air Room Air Lab Data Lab Results 01/31/24 12:26: Urine Color Yellow, Urine Appearance Sl cloudy, Urine pH 6.0, Ur Specific [place] 1.025, Urine Protein Negative, Urine Glucose (UA) Negative, Urine Ketones Negative, Urine Blood 1+ A, Urine Nitrate Negative, Urine Bilirubin Negative, Urine Urobilinogen 0.2, Ur Leukocyte Esterase Negative, Urine RBC Occasional, Urine WBC None, Ur Squamous Epith Cells 3-5, Urine Bacteria None, Urine HCG, Qual Negative 01/31/24 12:41: WBC 14.9 H, RBC 4.75, Hgb 14.6, Hct 43.0, MCV 90.6, MCH 30.8, MCHC 34.0, RDW 14.1, Plt Count 243, MPV 8.0, Neut % (Auto) 81.4 H, Lymph % (Auto) 13.7, [place] % (Auto) 3.0, Eos % (Auto) 1.3, Baso % (Auto) 0.6, Neut # (Auto) 12.2 H, Lymph # (Auto) 2.1, [place] # (Auto) 0.5, Eos # (Auto) 0.2, Baso # (Auto) 0.1, Sodium 137, Potassium 3.9, Chloride 106, Carbon Dioxide 26, Anion Gap 8.9, BUN 13, Creatinine 0.70, Estimated Creat Clear 84, Estimated GFR 98, Est GFR ( Amer) 118, Glucose 94, Calcium 8.7, Total Bilirubin 0.9, AST 32, ALT 34, Alkaline Phosphatase 82, Total Protein 7.1, Albumin 4.2, Globulin 2.9, Albumin/Globulin Ratio 1.4, Lipase 32, Procalcitonin 0.137, Chlamy pneumoniae PCR Not detected, Adenovirus (PCR) Not detected, B. pertussis DNA (PCR) Not detected, Coronavirus OC43 (PCR) Not detected, Coronavirus HKU1 (PCR) Not detected, Coronavirus 229E (PCR) Not detected, SARS-CoV-2 (PCR) Not detected, Coronavirus NL63 (PCR) Not detected, HIV 1&2 Antibody Rapid Nonreactive, Human Metapneumovir PCR Not detected, Influenza A (H1) PCR Not detected, Influ A (H1N1/09) PCR Not detected, Influenza A (H3) PCR Not detected, Influenza Type A (PCR) Not detected, Influenza Type B (PCR) Not detected, M. pneumoniae (PCR) Not detected, Parainfluenza 1 (PCR) Not detected, Parainfluenza 2 (PCR) Not detected, Parainfluenza 3 (PCR) Not detected, Parainfluenza 4 (PCR) Not detected, RSV (PCR) Not detected, Entero/Rhino (PCR) Not detected, Group A Strep Rapid Negative Orders (Tests/Meds): ED MEDICATIONS Discontinued Medications Generic Name Dose Route Start Last Admin Trade Name Freq PRN Reason Stop Dose Admin Acetaminophen 1,000 mg 01/31/24 12:32 01/31/24 12:51 Acetaminophen 1,000mg/100ml Vial IV 01/31/24 12:33 1,000 mg ONCE ONE Administration Diphenhydramine HCl 50 mg 01/31/24 12:32 01/31/24 12:51 Diphenhydramine 50mg/Ml Vial IV 01/31/24 12:33 50 mg ONCE ONE Administration Sodium Chloride 1,000 mls @ 999 mls/hr 01/31/24 12:32 01/31/24 13:08 Sod Chlor 0.9% 1000ml Bag IV 01/31/24 13:32 999 mls/hr .Q1H1M ONE Administration Iopamidol 75 ml 01/31/24 13:42 01/31/24 13:43 Iopamidol-370 (76%);100ml Bottle IV 01/31/24 13:43 75 ml ONCE ONE Administration Methocarbamol 500 mg 01/31/24 12:32 12/04/24 13:08 Methocarbamol 500mg Tablet PO 01/31/24 12:33 500 mg ONCE ONE Administration Prochlorperazine Edisylate 10 mg 01/31/24 12:32 01/31/24 12:51 Prochlorperazine 10mg/2ml Vial IV 01/31/24 12:33 10 mg ONCE ONE Administration Sodium Chloride 10 ml 01/31/24 13:42 01/31/24 13:43 Sodium Chloride 0.9% 10ml Syr (Rad Only) IV 01/31/24 13:43 10 ml ONCE ONE Administration ORDERS Category Date Time Status CT abdomen pelvis w con Stat Cat Scan 01/31/24 13:28 Completed CBC w/Auto Diff [Complete Blood Count Auto Diff] Stat Lab 01/31/24 12:41 Completed CMP [Comprehensive Metabolic Panel] Stat Lab 01/31/24 12:41 Completed Full Resp Panel w/COVID ([facility]) Routine Lab 01/31/24 12:41 Completed HIV (1&2) Antibody Rapid Stat Lab 01/31/24 12:41 Completed Hep C Ab with Reflex to RNA Stat Lab 01/31/24 12:41 Received Lipase Stat Lab 01/31/24 12:41 Completed Procalcitonin Stat Lab 01/31/24 12:41 Completed Rapid Strep Scrn Group A [Strep Scrn Group A (Rapid)] Lab 01/31/24 12:41 Completed Stat UA [Urinalysis and Microscopic] Stat Lab 01/31/24 12:26 Completed Urine , HCG Qual. Stat Lab 01/31/24 12:26 Completed Strep Screen Confirmation Stat Micro 01/31/24 12:41 Received Medical Decision Narrative: In summary patient is a 33-year-old female who presents to the emergency department for evaluation of headache body aches self-reported fever bilateral flank pain. Patient is initially normotensive at 141/80 with a heart rate of 109 breathing 16 times a minute satting at 98% on room air upon arrival, with a temperature of 98.3 currently. Physical exam is remarkable for nasal congestion normal bilateral tympanic membranes posterior oropharynx erythema without exudate or visible postnasal drip, breath sounds are clear and equal bilaterally to the bases. There is no increased work of breathing. Patient has a benign abdominal exam with no rebound or guarding or rigidity and normal bowel sounds. Patient is negative for CVA tenderness to percussion bilaterally. Patient has no nuchal rigidity. Alsen Coma Score is 15 patient is awake alert and oriented to person place and circumstance and retains capacity for decision making.. Differential diagnosis includes viral or bacterial infection versus pyelonephritis or complicated urinary tract infection etc. Initial workup will be conducted with hematologic labs full respiratory swab urinalysis CT scan of the abdomen pelvis. Initial interventions include crystalloid bolus Toradol Tylenol Benadryl Compazine Robaxin. Initial workup reviewed by me shows that her hematologic labs are nonactionable and my informed interpretation of her CT imaging shows no acute processes.. Upon repeat evaluation patient actually felt subjectively better and was actually sleeping on reevaluation.. Given this patient is appropriate for discharge with recommendations for continued Tylenol Motrin for symptoms and strict return precautions. I was consulted by the LISSETT, and we discussed the complexity of the problems being addressed. I approved the treatment and management plan for this patient's care in the Emergency Department, thus performing a substantive portion of the medical decision making. Valeriano Prescott MD Critical Care <YARELIS Garcia - Last Filed: 01/31/24 17:27> Critical Care Time Critical Care Time: No
[2024-01-31 12:37] LABS: Microscopic, Urine URINE MICROSCOPIC (MICROSCOPIC)
[2024-01-31 12:47] LABS: Appearance,Urine SL CLOUDY (Clear); Bilirubin,Urine Negative (Negative); Blood, Urine 1+ (Negative); Color,Urine YELLOW (Yellow); Glucose,Urine (UA) Negative (Negative); Ketones,Urine Negative (Negative); Leukocyte Esterase,Urine Negative (Negative); Nitrate,Urine Negative (Negative); Protein,Urine Negative (Negative); Specific Gravity, Urine 1.025 (1.005-1.030); Urobilinogen,Urine 0.2 EU/dl (0.2)
[2024-01-31 12:48] LABS: Urine Pregnancy, HCG Qual. Negative (Negative)
[2024-01-31 12:49] LABS: Adenovirus,PCR Not Detected (NotDetected); Bordetella Pertussis Not Detected (NotDetected); Chlamydophila Pneumoniae, PCR Not Detected (NotDetected); Coronavirus 19, PCR Not Detected (NotDetected); Coronavirus 229E Not Detected (NotDetected); Coronavirus NL63 Not Detected (NotDetected); Coronavirus OC43 Not Detected (NotDetected); Coronovirus HKU1,PCR Not Detected (NotDetected); Human Metapneumovirus Not Detected (NotDetected); Influenza A, PCR Not Detected (NotDetected); Influenza AH1, 2009 Not Detected (NotDetected); Influenza AH1, PCR Not Detected (NotDetected); Influenza AH3,PCR Not Detected (NotDetected); Influenza B, PCR Not Detected (NotDetected); Mycoplasma Pneumoniae, PCR Not Detected (NotDetected); Parainfluenza 1, PCR Not Detected (NotDetected); Parainfluenza 2, PCR Not Detected (NotDetected); Parainfluenza 3, PCR Not Detected (NotDetected); Parainfluenza 4, PCR Not Detected (NotDetected); Respiratory Syncytial Virus Not Detected (NotDetected); Rhinovirus/Enterovirus Not Detected (NotDetected)
[2024-01-31] MEDS: ACETAMINOPHEN 1,000MG/100ML VIAL 1000 MG IV (12:51)
[2024-01-31] MEDS: diphenhydrAMINE 50MG/ML VIAL 50 MG IV (12:51)
[2024-01-31] MEDS: PROCHLORPERAZINE 10MG/2ML VIAL 10 MG IV (12:51)
[2024-01-31 12:53] LABS: Basophils # 0.1 K/mm3 (0-0.2); Basophils % 0.6 % (0.1-2.0); Eosinophils # 0.2 K/mm3 (0.0-0.4); Eosinophils % 1.3 % (0.1-12.0); Hemoglobin 14.6 g/dL (12.2-16.2); Lymphocytes # 2.1 K/mm3 (0.7-4.5); Lymphocytes % 13.7 % (10-50); Mean Corpuscular Hemoglobin 30.8 pg (27.0-31.2); Mean Corpuscular Volume 90.6 fl (81-99); Monocytes # 0.5 K/mm3 (0.1-1.0); Neutrophils # 12.2 K/mm3 (1.8-7.8); Neutrophils % 81.4 % (37.0-80.0); Platelet Count 243 K/mm3 (142-424); Red Blood Count 4.75 M/mm3 (4.20-5.40); Red Cell Distribution Width 14.1 % (11.5-17.5)
[2024-01-31 12:54] LABS: Albumin Level 4.2 g/dl (3.5-5.0); Chloride 106 mmol/L (98-107); White Blood Count 14.9 K/mm3 (4.8-10.8)
[2024-01-31 12:55] LABS: Potassium 3.9 mmoL/L (3.5-5.1); Sodium 137 mmol/L (136-145)
[2024-01-31 12:57] LABS: Alanine Aminotransferase 34 U/L (12-78); Anion Gap 8.9 mEq/L (5-15); Aspartate Amino Transferase 32 U/L (14-36); Blood Urea Nitrogen 13 mg/dl (7-17); Carbon Dioxide 26 mmol/L (22.0-30.0); Creatinine Clearance Estimated 84 mL/min (50-200); Estimated Glomerular Filt Rate 98 ml/min (>60); GFR (African American) 118 ML/MIN (>60)
[2024-01-31 12:58] LABS: Albumin/Globulin Ratio 1.4 (1.1-1.8); Alkaline Phosphatase 82 U/L (38-126); Bilirubin,Total 0.9 mg/dl (0.2-1.3); Calcium 8.7 mg/dl (8.4-10.2); Globulin 2.9 g/dL (1.3-3.2); Glucose 94 mg/dl (74-100); Total Protein,Serum 7.1 g/dl (6.3-8.2)
[2024-01-31 13:05] LABS: Strep Scrn Group A (Rapid) Negative (Negative)
[2024-01-31] MEDS: 0.9 % SODIUM CHLORIDE 1000ML 1,000 ML 999 ML IV (13:08)
[2024-01-31] MEDS: METHOCARBAMOL 500MG TABLET 500 MG PO (13:08)
--- NOTE | 2024-01-31 13:28 | CT_ITS ---
FINAL REPORT TECHNIQUE: Postcontrast axial images through the abdomen and pelvis were performed. This study was performed with techniques to keep radiation doses as low as reasonably achievable, (ALARA). Individualized dose reduction techniques using automated exposure control or adjustment of mA and/or kV according to the patient's size were employed. CLINICAL HISTORY: Bilateral flank pain, dysuria COMPARISON: 06/18/2023 FINDINGS: Abdomen: The lung bases are clear. The liver is normal in size and attenuation. The gallbladder is not seen, presumably surgically absent. The spleen is unremarkable. The adrenals are normal. The pancreas is unremarkable. The kidneys enhance appropriately. The aorta is normal in caliber. No free fluid or adenopathy is identified. No findings for mechanical bowel obstruction are identified. Pelvis: The appendix is normal. The urinary bladder is unremarkable. No free fluid, free air, abscess or adenopathy is identified. IMPRESSION: No acute process identified. Reviewed, Interpreted and Dictated by Luiz Simon III, MD Transcribed by Moira Soriano Authenticated and [facility]
[2024-01-31 13:43] LABS: RBC,Urine Occasional #/hpf (0-3)
[2024-01-31] MEDS: SODIUM CHLORIDE 0.9% 10ML SYR (RAD ONLY) 10 ML IV (13:43)
[2024-01-31] MEDS: IOPAMIDOL-370 (76%);100ML BOTTLE 75 ML IV (13:43)
[2024-01-31 14:00] LABS: Lipase 32 U/L (23-300)
[2024-01-31 14:05] LABS: Procalcitonin 0.137 ng/mL (0.0-2.0)
[2024-01-31 16:47] VITALS: BP 135/78; PULSE 90; RESP 18; TEMP 36.8; O2SAT 99
[2024-01-31 17:41] LABS: HIV (1&2) Antibody Rapid NONREACTIVE (NONREACTIVE)
[2024-02-01 07:16] LABS: HCV Ab Non Reactive (Non Reactive)
== END 2024-01-31 16:49 | disposition home or self-care (01) ==
PROVIDERS: Physician Assistant; Student in an Organized Health Care Education/Training Program; Emergency Provider Emergency Medicine; PCP Family Medicine
DX: B34.9 Viral infection, unspecified (principal); R51.9 Headache, unspecified; M79.10 Myalgia, unspecified site; R50.9 Fever, unspecified; R10.9 Unspecified abdominal pain
CPT/HCPCS: 74177; 80053; 81001; 81025; 83690; 84145; 85025; 86803; 87389; 87430; 87633; 96361; 96374; 96375; 99285; J0131; J0780; J1200; J7030; Q9967

== ENCOUNTER 2024-07-25 17:53 | Outpatient (CLI) | payer OTHER, SELFPAY ==
[2024-07-25 20:28] LABS: Coronavirus 19, PCR Not Detected (NotDetected); Human Rhinovirus Not Detected (NotDetected); Influenza A, PCR Not Detected (NotDetected); Influenza B, PCR Not Detected (NotDetected); Respiratory Syncytial Virus Not Detected (NotDetected)
== END 2024-07-25 23:59 | disposition home or self-care (01) ==
LOC: LAB.DROPOF 07-26 13:31
PROVIDERS: PCP Nurse Practitioner; Visit Provider Nurse Practitioner
DX: R50.9 Fever, unspecified (principal)
CPT/HCPCS: 87631

== ENCOUNTER 2024-11-20 09:45 | Outpatient (CLI) | payer OTHER, SELFPAY ==
[2024-11-20 16:17] LABS: Coronavirus 19, PCR Not Detected (NotDetected); Influenza A, PCR Not Detected (NotDetected); Influenza B, PCR Not Detected (NotDetected)
--- OUTSIDE RECORDS SUMMARY | 2024-11-22 09:49 | XMS_ITS | Clinical Summary ---
Author Organization [facility] Address [address] [place], [place] [address] Care Team Providers Care Pediatric Licensed Practical Nurse Name Role Phone Unavailable Primary Care Provider Unavailabl e Allergies Active Allergy Reactions Criticality Noted Date Comments Ceftriaxone 12/23/2021 Medications diclofenac (VOLTAREN) 75 MG EC tablet Take 1 tablet by mouth 2 (two) times daily. 20 tablet 12/23/2021 Active Social History Tobacco Use Types Packs/Day Years Used Date Smoking Tobacco: Never Assessed Comments No Sex and Gender Information Value Date Recorded Sex Assigned at Not on file Legal Sex Female 4:54 PM EDT Gender Identity Not on file Sexual Orientation Not on file Last Filed Vital Signs Vital Sign Reading Time Taken Comments Blood Pressure 133/78 12/23/2021 5:12 PM EDT Pulse 101 12/23/2021 5:12 PM EDT Temperature 36.8 C (98.2 F) 12/23/2021 5:12 PM EDT Respiratory Rate 20 12/23/2021 5:12 PM EDT Oxygen Saturation 98% 12/23/2021 5:12 PM EDT Inhaled Oxygen Concentration - - Weight 136.1 kg (300 lb) 12/23/2021 5:12 PM EDT Height 152.4 cm (5') 12/23/2021 5:12 PM EDT Body Mass Index 58.59 12/23/2021 5:12 PM EDT Plan of Treatment Health Maintenance Due Date Last Done Comments Hepatitis B (HepB) Vaccine ( 1 of 3 - 19+ 3-dose series) 12/11/2011 Tdap/Td Vaccine >11 yo (1 - Tdap) 12/11/2011 Cervical Cancer Screening 2013 HPV Vaccine (1 - 3-dose SCDM series) 12/11/2019 Annual SDOH Screening 02/28/2024 Influenza Vaccine (#1) 2024 Haemophilus Influenzae Type B (Hib) Vaccine Aged Out No longer eligible b ased on patient's age to complete this topic Hepatitis A (HepA) Vaccine Aged Out N o longer eligible based on patient's age to complete this topic Meningococcal ACWY Aged Out No longer eligible based on patient's age to complete this topic Pneumococcal Vaccines 6-49 yo Risk Aged Out No longer eligible based on patient's age to complete this topic Polio (IPV) Aged Out No longer eligi ble based on patient's age to complete this topic Rotavirus (RV) Vaccine Aged Out No lo nger eligible based on patient's age to complete this topic Insurance [employer] ACCESS PLUS
--- OUTSIDE RECORDS SUMMARY | 2024-11-22 09:49 | XMS_ITS | Clinical Summary ---
Author Organization [facility] Address [address] [place] [address] Care Team Providers Care Column Precaster Name Role Phone Mega Reynolds MD Primary Care Provider + Allergies Active Allergy Reactions Criticality Noted Date Comments Amoxicillin-Pot Clavulanate Headache 08/24/19 23 Ceftriaxone Headache Low 09/24/2021 Medications loratadine (CLARITIN) 10 MG tablet Take 1 tablet by mouth As Needed. Active fluticasone (FLONASE) 50 MCG/ACT nasal sprayIndications :Allergic rhinitis due to pollen, unspecified seasonality 2 sprays into the nostril(s) as directed by provider Daily. 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 Weight is unchanged. BMI is is above average; BMI management plan is completed. We discussed low calorie, low carb based diet program, portion control, increasing exercise, consulting a Bariatric surgeon and pharmacologic options including Saxenda and Mey. Long discussion was had about the benefits and mechanism of action of each medication. Patient opted to go with Saxenda due to its FDA approval for weight loss. She will consider Mey after doing some personal research. I do not feel like phentermine nor Contrave are good options for the patient due to her prior complaints of tachycardia. T. Assessment & Plan (09/24/2021 9:49 AM EDT): Patient's (Body mass index is 54.87 kg/m .) indicates that they are morbidly obese (BMI > 40 or > 35 with obesity - related health condition) with health conditions that include GERD . Weight is improving with lifestyle modifications. BMI is is above average; BMI management plan is completed. We discussed portion control, increasing exercise and pharmacologic options including Saxenda and Wegovy. Diagnosis of obesity is central to all of patient's complaints. Reduction in adiposity would benefit patient's level of activity, symptoms of GERD, and help alleviate symptoms of plantar fasciitis. Patient will review handouts on Wegovy and Saxenda. Patient would also be candidate for bariatric surgery based on BMI Immunizations Immunization Administration Dates Next Due Fluzone (or Fluarix & Flulaval for VFC) >6mos MMR 03/30/2023 PPD Test 03/28/2023 Family History Medical History Relation Name Comments Breast cancer Maternal Grandmother Blanquita h[place], cancer came back all over her body years later. Cancer Maternal Grandmother Blanquita Piedra Breast Cancer and was spread throughout her bones when it came back. Early Mother Sabrina Villanueva at the age of 45 due to Liver Failure Liver disease Mother Sabrina Villanueva Miscarriages / Stillbirths Mother Sabrina Villanueva Miscarried in 2003 Relation Name Status Comments Maternal Grandmother Blanquita Piedra Mother Sabrina Villanueva Social History Tobacco Use Types Packs/Day Years Used Date Smoking Tobacco: Light Smoker Cigarettes 0.3 10 Smokeless Tobacco: Never Tobacco Cessation:Ready to Q uit: No Alcohol Use Standard Drinks/Week Comments Not Currently 0 (1 standard drink = 0.6 oz pure alcohol) I have a drink maybe a couple times a year PHQ-2 Answer Date Recorded Retired PHQ-9: Brief Depression Severity Measure Score 0 07/11/2022 Abuse Screen Answer Date Recorded Unsafe at Home or Work/School Not on file Feels Threatened by Someone? Not on file 10/2022 Does Anyone Keep You from Co ntacting Others or Doint Things Outside the Home? Not on file 12/05/2022 Physical Sign of Abuse Present Not on file 1 Housing Stability Answer Date Recorded Current Living Arrangements Not on file 10/2022 Potentially Unsafe Housing Conditions Not on savannah e 12/05/2022 Family and Community Support Answer Rico e Recorded Help with Day-to-Day Activities Not on file 12/05/2022 Lonely or Isolated Not on file 12/05/2022 Employment Answer Date Recorded Do you want help finding or keeping work or a luigi b? Not on file 12/05/2022 Disabilities Answer Date Recorded Concentrating, Remembering, or Making Decisions Difficulty Not on file 12/05/2022 Doing Errands Independently Difficulty Not on fi le 12/05/2022 Education Answer Date Recorded Help with school or training? Not on file Preferred Language Not on file 12/05/2022 PHQ-2 Answer Date Recorded Retired PHQ-9: Brief Depression Severity Measure Score 1 06/05/2023 Comments No Sex and Gender Information Value Date Recorded Sex Assigned at Not on file Legal Sex Female 4:36 PM EST Gender Identity Not on file Sexual Orientation Not on file Last Filed Vital Signs Vital Sign Reading Time Taken Comments Blood Pressure 132/88 06/05/2023 8:32 AM EDT Pulse 94 06/05/2023 8:32 AM EDT Temperature 36.5 C (97.7 F) 06/05/2023 8:32 AM EDT Respiratory Rate 24 06/05/2023 8:32 AM EDT Oxygen Saturation 98% 06/05/2023 8:32 AM EDT Inhaled Oxygen Concentration - - Weight 150 kg (330 lb 9.6 oz) 06/05/2023 8:32 AM EDT Height 152.4 cm (5') 06/05/2023 8:32 AM EDT Body Mass Index 64.57 06/05/2023 8:32 AM EDT Plan of Treatment Health Maintenance Due Date Last Done Comments Pneumococcal Vaccine 0-49 (1 of 2 - PCV) 12/11/2011 TDAP/TD VACCINES (1 - Tdap) 12/11/2011 ANNUAL PHYSICAL 03/06/2017 HEPATITIS C SCREENING 03/06/2017 Annual Gynecologic Pelvic and Breast Exam 12/30/2023 12/28/2022 INFLUENZA VACCINE 09/27/2024 03/30/2023 PAP SMEAR 12/28/2025 12/28/2022, 10/06/2021 Procedures Procedure Name Priority Date/Time Associated Diagnosis Comments LIQUID-BASED PAP SMEAR WITH HPV GENOTYPING REGARDLESS OF INTERPRETATION, [facility] ([facility]) Routine 12/28/2022 11:15 AM EDT History of loop electrical excision procedure (LEEP) from Last 3 Months or Most Recently Relevant to Health Maintenance Results * LIQUID-BASED PAP SMEAR WITH HPV GENOTYPING REGARDLESS OF INTERPRETATION ([facility]) (12/28/2022 11:15 AM EDT) Pathologist [facility] Report [facility] [address] [place] [address] or [phone] Xavier Mckeon M.D., [employer] Worker PATIENT NAME [facility] [id number] TRISHA HUNT [id number] AGE SEX SSN CLIENT REF # [facility] 30 1990 F [id number] Komal LAIRD REQUESTING Destin [place] [address] DORENE HARDIN DATE COLLECTED DATE RECEIVED DATE REPORTED 12/28/2022 12/28/2022 12/30/2022 ThinPrep Pap with Cytyc Imaging DIAGNOSIS: Negative for intraepithelial lesion or malignancy Multiple factors can influence accuracy of Pap tests; therefore, screening at regular intervals is necessary for early cancer detection. SPECIMEN ADEQUACY: SATISFACTORY FOR EVALUATION Transformation zone is present. SOURCE OF SPECIMEN: CERVICAL/ENDOCERV ICAL SLIDES: 1 CLINICAL HISTORY: History of loop electrical excision procedure (LEEP) Abnormal bleeding HPV HR-HPV POOL: Negative The Aptima HPV assay is an in vitro nucleic acid amplification test for the qualitative detection of E6/E7 viral messenger RNA from 14 high risk types of HPV in cervical specimens. The high risk HPV types detected include: 16, 18, 31, 33, 35, 39, 45, 51, 52, 56, 58, 59, 66, 68 AIRCRAFT PNEUDRAULIC SYSTEMS MECHANIC: ADRIAN SHOEMAKER (ASCP) CPT CODES: 76798, [id number] 12/30/2022 5:10 AM EDT [facility] ThinPrep Vial Collection / Unknown 12/28/2022 11:15 AM EDT 12/28/2022 11:15 AM EDT us Dorene Hardin MD PATHOLOGY/CYTOLOGY ORDERABLES [facility] Result [facility]
[address] [place] [address], from Last 3 Months or Most Recently Relevant to Health Maintenance Insurance [employer] [place] MEDICA[employer] PENDING on file Care Teams Column Precaster Relationship Specialty Start Date End Date Mega Reynolds MD [address] [place] [address] PCP - General Family Medicine 09/24/21
== END 2024-11-20 23:59 ==
LOC: LAB.DROPOF 11-22 09:46
PROVIDERS: PCP Family Medicine; Visit Provider Student in an Organized Health Care Education/Training Program
DX: R52 Pain, unspecified (principal)
CPT/HCPCS: 87636

== ENCOUNTER 2025-02-06 14:43 | Outpatient (CLI) | payer OTHER, SELFPAY ==
[2025-02-06 20:31] LABS: Coronavirus 19, PCR Not Detected (NotDetected); Influenza A, PCR Not Detected (NotDetected); Influenza B, PCR Not Detected (NotDetected)
== END 2025-02-06 23:59 | disposition home or self-care (01) ==
LOC: LAB.DROPOF 02-07 13:40
PROVIDERS: PCP Family Medicine; Visit Provider Nurse Practitioner
DX: J06.9 Acute upper respiratory infection, unspecified (principal)
CPT/HCPCS: 87631